=== PATIENT | female | born 1965 | race Caucasian/White ===

== ENCOUNTER → 2017-09-09 12:15 | Outpatient (CLI) | payer MEDICARE, MEDICAID, SELFPAY ==
--- NOTE | 2017-09-09 12:15 | DT_ITS ---
This patient was seen during an EMR downtime September 08, 2017 - September 15, 2017. This patient may have a combination of paper and electronic documentation or all paper documentation. All documentation is viewable within the e-chart portion of [employer] for each patient visit.
[2017-09-15 16:57] LABS: Creatinine, Serum 0.96 mg/dL (0.55-1.02); EST Glomerular Filtration Rate 65 mL/min (>60); Est Glom Filt Rate - Afr Amer 79 mL/min (>60); Thyroid Stim Hormone (TSH) 1.38 uIU/mL (0.358-3.74)
== END ==
PROVIDERS: Family Provider Family Medicine; PCP Family Medicine; Visit Provider Psychiatry & Neurology Psychiatry
DX: Z79.899 Other long term (current) drug therapy (principal)
CPT/HCPCS: 36415; 80178; 82565; 84443

== ENCOUNTER → 2018-02-23 16:34 | Outpatient (CLI) | payer MEDICARE, SELFPAY ==
[2018-02-23 18:25] LABS: Thyroid Stim Hormone (TSH) 2.27 uIU/mL (0.358-3.74)
== END ==
PROVIDERS: Family Provider Family Medicine; PCP Family Medicine; Referring Provider Psychiatry & Neurology Psychiatry; Visit Provider Psychiatry & Neurology Psychiatry
DX: Z79.899 Other long term (current) drug therapy (principal)
CPT/HCPCS: 36415; 80178; 82570; 84443

== ENCOUNTER → 2018-08-01 | Outpatient (CLI) | payer OTHER, SELFPAY ==
[2016-06-23 00:25] VITALS: BMI 40.2
[2018-08-01 11:46] LABS: Creatinine, Serum 0.84 mg/dL (0.55-1.02); EST Glomerular Filtration Rate 75 mL/min (>60); Est Glom Filt Rate - Afr Amer 91 mL/min (>60); Thyroid Stim Hormone (TSH) 1.25 uIU/mL (0.358-3.74)
== END | disposition home or self-care (01) ==
PROVIDERS: Family Provider Family Medicine; PCP Family Medicine; Referring Provider Psychiatry & Neurology Psychiatry; Visit Provider Psychiatry & Neurology Psychiatry
DX: Z79.899 Other long term (current) drug therapy (principal)
CPT/HCPCS: 80178; 82565; 84443

== ENCOUNTER → 2019-02-11 14:49 | Outpatient (CLI) | payer OTHER, SELFPAY ==
[2019-02-11 16:07] LABS: Creatinine, Serum 0.95 mg/dL (0.55-1.02); EST Glomerular Filtration Rate 65 mL/min (>60); Est Glom Filt Rate - Afr Amer 79 mL/min (>60); Thyroid Stim Hormone (TSH) 1.47 uIU/mL (0.358-3.74)
== END ==
PROVIDERS: Family Provider Family Medicine; PCP Family Medicine; Referring Provider Psychiatry & Neurology Psychiatry; Visit Provider Psychiatry & Neurology Psychiatry
DX: Z79.899 Other long term (current) drug therapy (principal)
CPT/HCPCS: 36415; 80178; 82565; 84443

== ENCOUNTER → 2019-08-04 15:09 | Outpatient (CLI) | payer OTHER, SELFPAY ==
[2019-08-04 16:45] LABS: Creatinine, Serum 0.93 mg/dL (0.55-1.02); EST Glomerular Filtration Rate 66 mL/min (>60); Est Glom Filt Rate - Afr Amer 80 mL/min (>60); Thyroid Stim Hormone (TSH) 1.85 uIU/mL (0.358-3.74)
== END ==
PROVIDERS: PCP Family Medicine; Referring Provider Psychiatry & Neurology Psychiatry; Visit Provider Psychiatry & Neurology Psychiatry
DX: Z79.899 Other long term (current) drug therapy (principal)
CPT/HCPCS: 36415; 80178; 82565; 84443

== ENCOUNTER → 2020-03-20 14:45 | Outpatient (CLI) | payer OTHER, SELFPAY ==
[2016-06-23 00:25] VITALS: BMI 40.2
[2020-03-20 16:19] LABS: Creatinine, Serum 0.85 mg/dL (0.55-1.02); EST Glomerular Filtration Rate 74 mL/min (>60); Est Glom Filt Rate - Afr Amer 89 mL/min (>60); Thyroid Stim Hormone (TSH) 1.69 uIU/mL (0.358-3.74)
== END ==
PROVIDERS: PCP Family Medicine; Referring Provider Psychiatry & Neurology Psychiatry; Visit Provider Psychiatry & Neurology Psychiatry
DX: Z79.899 Other long term (current) drug therapy (principal)
CPT/HCPCS: 36415; 80178; 82565; 84443

== ENCOUNTER 2020-09-06 19:57 | Emergency (ER) | payer MEDICARE, MEDICAID, SELFPAY ==
[2020-09-06 19:57] VITALS: BP 153/83; PULSE 73; RESP 18; TEMP 36.8; O2SAT 100; BMI 43.7
--- NOTE | 2020-09-06 20:40 | RAD_ITS ---
HISTORY: Injury/Pain COMPARISON: CT scan of the abdomen and pelvis from December 12, 2015 with sagittal and coronal 2-D reformats. FINDINGS: # of images incl. paperwork: 3 XR Spine Lumbar 2 or 3 Views: Lumbar vertebral bodies are normal in height. Lumbar disc spaces are well maintained. No acute lumbar spine fracture or subluxation. Degenerative facet disease within the lower lumbar spine is similar. Minimal degenerative disc disease is present, perhaps greatest at the L1-L2 level and some at the L2-L3 level. Small anterior enthesophytes at the L2-L3 level were similar on the previous study. RAD/Lumbar Spine 2 or 3 Views IMPRESSION: No acute lumbar spine fracture or subluxation. Lower lumbar spine facet arthropathy. at 2144 Reported and signed by: Garrison Garcia MD Electronically Signed: Garrison Garcia MD at 21:43 EDT Tel , Service support ,
[2020-09-06] MEDS: oxyCODONE 5 MG Tablet PO (20:57)
[2020-09-06 23:03] VITALS: BP 130/68; PULSE 70; RESP 18; O2SAT 97
--- NOTE | 2020-09-07 00:12 | EDS_ITS ---
HPI History of Present Illness Chief Complaint: Back Informant: patient Onset/Context/Timing Onset: Today Context: Gradual Onset Timing: Continuous Quality: Sharp Location: Lumbar Worsened by: improves with Nothing Relieved by: Nothing Associated Symptoms Associated Symptoms: Radiation to Left Leg; Negative for Numbness, Tingling, Radiation to Right Leg, Fever, Abdominal Pain, Dysuria, Unable to Ambulate, Unable to Transfer, Urinary Retention, Urinary Incontinence, Constipation and Fecal Incontinence Narrative Narrative: Patient presents with back pain that has been getting progressively worse over the past 4 days. Patient states that the pain constant. Patient states pain is over the left lower lumbar area. Patient states the pain radiates down her left leg. Patient denies any bowel or bladder changes. Patient denies any saddle anesthesia. Patient denies any paresthesias or weakness. Patient states that earlier this week she was startled and moved rather quickly. Patient states her pain in her back started after that. Patient denies any other trauma or injury. [facility] Medical History Bipolar disorder Depression Hypertension Home Medications lisinopril 40 mg PO DAILY 06/14/13 [History Last Taken 12/11/14 40 MG] lithium carbonate 300 mg PO TID 06/18/14 [History Last Taken 12/11/14 300 MG] clonazepam 0.5 mg PO TID 08/19/14 [History Last Taken 12/11/14 1 MG] hydrocodone-acetaminophen 1 tab PO Q6H PRN PRN 3 Days #10 tablet 09/06/20 [Rx Last Taken Unknown] hydroxyzine HCl 50 mg PO 4X/DAY 09/06/20 [History Last Taken Unknown] mirtazapine [Remeron] 15 mg PO QHS 09/06/20 [History Last Taken Unknown] Allergy/AdvReac Type Severity Reaction Status Date / Time cyclobenzaprine HCl Allergy Other Verified 06/23/16 00:24 [From Flexeril] ketorolac tromethamine AdvReac Other Verified 06/23/16 00:24 [From Toradol] morphine AdvReac Other Verified 06/23/16 00:24 orphenadrine citrate AdvReac Other Verified 06/23/16 00:24 [From Norflex] prochlorperazine edisylate AdvReac Upset Verified 06/23/16 00:24 [From Compazine] Stomach prochlorperazine maleate AdvReac Upset Verified 06/23/16 00:24 [From Compazine] Stomach promethazine HCl AdvReac Upset Verified 06/23/16 00:24 [From Phenergan] Stomach tramadol AdvReac Other Verified 06/23/16 00:24 Surgical History S/P ACL surgery Social History Smoking Status: Never smoker ROS ROS ED Constitutional Constitutional ED: Denies chills or fever(s) Eyes Eyes: Denies blurry vision or change in vision ENT ENT ED: Denies rhinorrhea or sore throat Cardiovascular Cardiovascular: Denies chest pain or palpitations Respiratory/Chest Respiratory/Chest: Denies cough or dyspnea Gastrointestinal Gastrointestinal: Reports nausea; Denies vomiting Genitourinary Genitourinary ED: Denies dysuria or hematuria Musculoskeletal Musculoskeletal: Reports back pain; Denies neck pain Integumentary Denies abscess or rash Neurologic Neurologic: Denies headache(s) or weakness Allergic/Immunologic Allergic/Immunologic ED: Denies mouth swelling or urticaria EXAM Physical Exam Const Vital Signs: 09/06/20 19:57 09/06/20 23:03 Temperature 98.2 F Temperature Source Temporal Pulse Rate 73 70 Respiratory Rate 18 18 Blood Pressure 153/83 H 130/68 H Blood Pressure Mean 106 88 Pulse Ox 100 97 Oxygen Delivery Method Room Air Room Air Positive well nourished, well developed and obese General Appearance ED: well developed Nutritional Appearance: obese Neck supple and no JVD Back/Spine Back/Spine Narrative: There is tenderness over the left lumbar paraspinal muscles. There is some mild midline tenderness. There is no bony crepitance or step-off. There is no CVA tenderness. Range of motion was limited all motions of the lumbar spine secondary to pain. General Back: Negative for CVA tenderness Lumbar Spine / Lower Back: ROM limited Neuro oriented x3 and no sensory deficits noted Sensorium / Orientation: alert Motor Exam: strength 5/5 throughout Psych mental status grossly normal MDM MDM MDM Narrative Medical decision making narrative: Patient was given a dose of oxycodone here. X-rays of the lumbar spine were obtained. There are 3 views. On my interpretation, there is no acute fracture, spondylolisthesis or spondylolysis. There are some mild degenerative changes. Radiologist also interpreted the x- rays and agrees. Patient is feeling better on reevaluation. Patient was given a prescription for a short course of [place]. Patient was instructed use ice to the area. Patient was instructed to follow-up with her primary care physician in 5 to 7 days. Patient understood and was agreeable with the plan. All questions were answered. Radiography X-Ray: LS SPine, Read by ED Physician, Read by Radiologist, No Fracture, Normal Bony Alignment and DJD Diagnostic Testing: Radiology Impression Lumbar Spine X-Ray 09/06/20 20:40 IMPRESSION: No acute lumbar spine fracture or subluxation. Lower lumbar spine facet arthropathy. at 2144 Reported and signed by: Garrison Garcia MD Electronically Signed: Garrison Garcia MD at 21:43 EDT Tel , Service support , Discharge Plan Triage Chief Complaint: Back ED Provider: Gabriel Hummel Dx/Rx/DC Orders Clinical Impression: Acute myofascial strain of lumbosacral region Instructions: ED Back Sprain/Strain Prescriptions: New hydrocodone-acetaminophen [hydrocodone-acetaminophen] 1 TABLET tablet 1 tab PO Q6H PRN PRN (Reason: Pain) 3 Days Qty: 10 RF: 0 No Action lisinopril 40 MG tablet 40 mg PO DAILY RF: 0 lithium carbonate 300 MG tablet 300 mg PO TID RF: 0 clonazepam 1 MG tablet 0.5 mg PO TID RF: 0 hydroxyzine HCl 50 mg Tablet 50 mg PO 4X/DAY RF: 0 mirtazapine [Remeron] 15 mg Tablet 15 mg PO QHS RF: 0 Primary Care Provider: Claude Ruiz III Referrals: Claude Ruiz III, MD [Primary Care Provider] - 3-5 Days Disposition Disposition: Home, self care Discharge Date/Time: 09/06/20 23:10
== END 2020-09-06 23:10 | disposition home or self-care (01) ==
PROVIDERS: Emergency Provider Emergency Medicine; PCP Family Medicine
DX: S39.012A Strain of muscle, fascia and tendon of lower back, initial encounter (principal); X58.XXXA Exposure to other specified factors, initial encounter; Y93.9 Activity, unspecified; Y92.9 Unspecified place or not applicable; I10 Essential (primary) hypertension; F31.9 Bipolar disorder, unspecified; Z79.899 Other long term (current) drug therapy
CPT/HCPCS: 72100; 99283

== ENCOUNTER 2020-09-18 07:45 | Emergency (ER) | payer MEDICARE, MEDICAID, SELFPAY ==
[2020-09-18 07:47] VITALS: BP 139/67; PULSE 87; RESP 34; TEMP 37.9; O2SAT 94; BMI 43.7
--- NOTE | 2020-09-18 08:17 | ED.VIS.GI ---
HPI HPI - GI History of Present Illness Chief Complaint: Nausea/Vomiting Informant: patient Nausea/Vomiting/Emesis GI Symptom: Positive for Nausea and Vomiting Onset: Days (2) Quality: Positive for Nonbilious Diarrhea/Melena/Hematochezia GI Symptom: Negative for Diarrhea, Melena and Hematochezia Associated Symptoms Associated Symptoms: Negative for Dysuria and Hematuria Narrative Narrative: Patient presents with nausea and vomiting for the past 2 days. Patient states her emesis has a slight pink tinge to it. Patient denies any destini hematemesis or coffee-ground emesis. Patient denies any diarrhea, melena, or hematochezia. Patient denies abdominal pain. Patient states she was recently diagnosed with COVID-19. Patient admits to general myalgias. Patient denies any dysuria or hematuria. Patient states she has been having fevers up to 101.5 at home. Patient also admits to rhinorrhea and sore throat. [facility] Medical History Bipolar disorder Depression Hypertension Home Medications lisinopril 40 mg PO DAILY 06/14/13 [History Last Taken 12/11/14 40 MG] lithium carbonate 300 mg PO TID 06/18/14 [History Last Taken 12/11/14 300 MG] clonazepam 0.5 mg PO TID 08/19/14 [History Last Taken 12/11/14 1 MG] hydrocodone-acetaminophen 1 tab PO Q6H PRN PRN 3 Days #10 tablet 09/06/20 [Rx Last Taken Unknown] hydroxyzine HCl 50 mg PO 4X/DAY 09/06/20 [History Last Taken Unknown] mirtazapine [Remeron] 15 mg PO QHS 09/06/20 [History Last Taken Unknown] ondansetron 4 mg PO Q8H PRN PRN #10 tab 09/18/20 [Rx Last Taken Unknown] Allergy/AdvReac Type Severity Reaction Status Date / Time cyclobenzaprine HCl Allergy Other Verified 09/18/20 07:47 [From Flexeril] ketorolac tromethamine AdvReac Other Verified 09/18/20 07:47 [From Toradol] morphine AdvReac Other Verified 09/18/20 07:47 orphenadrine citrate AdvReac Other Verified 09/18/20 07:47 [From Norflex] prochlorperazine edisylate AdvReac Upset Verified 09/18/20 07:47 [From Compazine] Stomach prochlorperazine maleate AdvReac Upset Verified 09/18/20 07:47 [From Compazine] Stomach promethazine HCl AdvReac Upset Verified 09/18/20 07:47 [From Phenergan] Stomach tramadol AdvReac Other Verified 09/18/20 07:47 Surgical History S/P ACL surgery Social History Smoking Status: Never smoker ROS ROS ED Constitutional Constitutional ED: Reports chills and fever(s) Eyes Eyes: Denies blurry vision or change in vision ENT ENT ED: Reports rhinorrhea and sore throat Cardiovascular Cardiovascular: Denies chest pain or palpitations Respiratory/Chest Respiratory/Chest: Denies cough or dyspnea Gastrointestinal Gastrointestinal: Reports nausea and vomiting; Denies abdominal pain, diarrhea or melena Genitourinary Genitourinary ED: Denies dysuria or hematuria Musculoskeletal Musculoskeletal: Reports myalgias; Denies back pain or neck pain Integumentary Denies abscess or rash Neurologic Neurologic: Denies headache(s) or weakness Allergic/Immunologic Allergic/Immunologic ED: Denies mouth swelling or urticaria EXAM Physical Exam Const Vital Signs: 09/18/20 07:47 Temperature 100.2 F H Temperature Source Oral Pulse Rate 87 Respiratory Rate 34 H Blood Pressure 139/67 H Blood Pressure Mean 91 Pulse Ox 94 Oxygen Delivery Method Room Air Positive well nourished, well developed and obese General Appearance ED: well developed Nutritional Appearance: obese HEENT Reports moist mucous membranes Neck supple and no JVD Resp normal respiratory effort and clear to auscultation bilaterally Cardio regular rate, regular rhythm and no murmurs GI normal to inspection, nondistended, normoactive bowel sounds, non-tender and non-distended Auscultation: normoactive bowel sounds Palpation: soft Extremity normal to inspection General Extremety ED: Negative for edema or tenderness General Extremity: Negative for edema Neuro oriented x3, CN's II-XII intact bilaterally and no sensory deficits noted Sensorium / Orientation: alert Motor Exam: strength 5/5 throughout Psych mental status grossly normal Skin no rashes or lesions noted MDM MDM MDM Narrative Medical decision making narrative: Patient was given Zofran and Tylenol. Patient was given some IV fluids. CBC and comprehensive metabolic profile were obtained. Creatinine was only slightly elevated at 1.10. The remaining labs were within normal limits. Portable 1 view chest x-ray was obtained. On my interpretation, lung hess are clear. There is normal cardiac silhouette. Bony thorax is normal. There is no acute process noted. Radiologist also interpreted the x-ray and agrees. Patient was advised that her symptoms are consistent with COVID-19. Patient was instructed to continue using Tylenol and ibuprofen at home. Patient was given a prescription for Zofran. Patient was instructed to follow-up with her primary care physician in 3 to 5 days. Patient understood and was agreeable with the plan. All questions were answered. Lab Data Attestation: I reviewed the patient's lab results. Labs: Laboratory Results - last 24 hr 09/18/20 09/18/20 08:48 08:48 WBC 4.4 RBC 5.16 Hgb 14.8 Hct 46.2 MCV 89.5 MCH 28.7 MCHC 32.0 RDW Std Deviation 42.3 RDW Coeff of David 12.8 Plt Count 212 MPV 9.8 Immature Gran % (Auto) 0.200 Neut % (Auto) 65.4 Lymph % (Auto) 22.5 [place] % (Auto) 11.5 H Eos % (Auto) 0.2 Baso % (Auto) 0.2 Absolute Neuts (auto) 2.9 Absolute Lymphs (auto) 0.98 Nucleated RBC % 0 Sodium 138 Potassium 4.3 Chloride 107 Carbon Dioxide 22.0 Anion Gap 9 BUN 18 Creatinine 1.10 H Estim Creat Clear Calc 45.70 Est GFR (MDRD) Af Amer 66 Est GFR (MDRD) Non-Af 55 L BUN/Creatinine Ratio 16.4 Glucose 124 H Calcium 9.6 Total Bilirubin 0.30 AST 35 ALT 78 H Alkaline Phosphatase 105 Total Protein 7.9 Albumin 3.9 Globulin 4.0 Albumin/Globulin Ratio 1.0 Radiography Diagnostic Testing: Radiology Impression Chest X-Ray 09/18/20 09:00 IMPRESSION: No acute abnormality is present. Electronically Signed: Ravi Dillon MD at 9:20 EDT , Service support , Discharge Plan Triage Chief Complaint: Nausea/Vomiting ED Provider: Gabriel Hummel Dx/Rx/DC Orders Clinical Impression: COVID-19 Instructions: Coronavirus Disease 2019 (COVID-19): Caring for Yourself or Others Prescriptions: New ondansetron [ondansetron] 4 MG tablet 4 mg PO Q8H PRN PRN (Reason: Nausea) Qty: 10 RF: 0 No Action lisinopril 40 MG tablet 40 mg PO DAILY RF: 0 lithium carbonate 300 MG tablet 300 mg PO TID RF: 0 clonazepam 1 MG tablet 0.5 mg PO TID RF: 0 hydroxyzine HCl 50 mg Tablet 50 mg PO 4X/DAY RF: 0 mirtazapine [Remeron] 15 mg Tablet 15 mg PO QHS RF: 0 hydrocodone-acetaminophen [hydrocodone-acetaminophen] 1 TABLET tablet 1 tab PO Q6H PRN PRN (Reason: Pain) 3 Days Qty: 10 RF: 0 Primary Care Provider: Care Physician,No Primary Referrals: Destini Ruiz III, MD [STAFF PHYSICIAN] - 3-5 Days Care Physician,No Primary [Primary Care Provider] - Disposition Disposition: Home, self care
[2020-09-18] MEDS: Acetaminophen 500 MG Tablet 1000 MG PO (08:46)
[2020-09-18] MEDS: Ondansetron 4 MG/2 ML Vial IV (08:46)
[2020-09-18 08:59] LABS: Absolute Lymphocyte Count 0.98 X10^3/uL (0.83-4.51); Absolute Neutrophil Count 2.9 X10^3/uL (2.0-7.7); Basophil# 0.01 X10^3/uL; Basophil% 0.2 % (0-1); Eosinophil# 0.01 X10^3/uL; Eosinophils% 0.2 % (0-5); Hematocrit 46.2 % (37-47); Hemoglobin 14.8 g/dL (12.0-15.0); Lymphocyte # 0.98 X10^3/ul (0.83-4.51); Lymphocyte % 22.5 % (19-41); Mean Corpuscular Hgb 28.7 pg (27.0-32.0); Mean Corpuscular Volume 89.5 fL (81-99); Mean Platelet Vol. 9.8 fl (6.2-12.0); Monocyte% 11.5 % (0-10); NRBC Flagged by Analyzer 0 % (0-5); Neutrophil # 2.85 X10^3/uL (2.7-7.7); Neutrophil % 65.4 % (47-70); Platelet Count 212 K/mm3 (150-450); RBC Distribution Width CV 12.8 % (11.6-14.6); RBC Distribution Width SD 42.3 fl (35.1-43.9); Red Blood Count 5.16 M/mm3 (4.2-5.4); White Blood Count 4.4 K/mm3 (4.4-11.0)
--- NOTE | 2020-09-18 09:00 | RAD_ITS ---
STUDY: X-RAY CHEST REASON FOR EXAM: Female, 55 years old. Cough TECHNIQUE: Single AP portable view of the chest. COMPARISON: Comparison is made with prior study dated 05/12/2016. FINDINGS: EKG electrodes are seen. The lungs are clear and expanded. There is no demonstrated pleural abnormality. Normal size heart. Normal mediastinum and carol. Normal visualized pulmonary arteries. Normal visualized aortic arch and descending thoracic aorta. There are diffuse degenerative changes of the visualized thoracic spine. Normal visualized ribs, clavicles, and shoulders. There is no demonstrated abnormality of the visualized soft tissue structures of the upper abdomen. RAD/Chest 1 View (Portable) IMPRESSION: No acute abnormality is present. Electronically Signed: Ravi Dillon MD at 9:20 EDT , Service support ,
[2020-09-18 09:16] LABS: AST(SGOT) 35 U/L (15-37); Alanine Aminotransfer ALT/SGPT 78 U/L (13-56); Albumin, Serum 3.9 g/dL (3.2-5.0); Alkaline Phosphatase 105 U/L (45-117); Anion Gap 9 (5-15); BUN 18 mg/dL (7-18); BUN/Creat Ratio 16.4 RATIO (10-20); Calcium,Total 9.6 mg/dL (8.5-10.1); Chloride 107 mmol/L (98-107); EST Glomerular Filtration Rate 55 mL/min (>60); Est Glom Filt Rate - Afr Amer 66 mL/min (>60); Glucose 124 mg/dL (74-106); Potassium 4.3 mmol/L (3.5-5.1); Protein, Total 7.9 g/dL (6.4-8.2); Sodium Level 138 mmol/L (136-145)
[2020-09-18 10:22] VITALS: BP 120/79; PULSE 76; RESP 16; RESP 26; O2SAT 93
== END 2020-09-18 10:30 | disposition home or self-care (01) ==
PROVIDERS: Emergency Provider Emergency Medicine
DX: U07.1 COVID-19 (principal); E66.9 Obesity, unspecified
CPT/HCPCS: 71045; 80053; 85025; 96374; 99285; J7040; A4216; J2405

== ENCOUNTER 2020-09-21 11:04 | Inpatient (IN) | payer MEDICARE, MEDICAID, SELFPAY ==
[2020-09-21] VITALS (7 sets, daily range): BP systolic 133–157; BP diastolic 67–92; PULSE 64–77; RESP 16–28; TEMP 36.8–37.6; O2SAT 94–98; BMI 40.2; BMI 42.0
--- NOTE | 2020-09-21 11:15 | EKG12_ITS ---
Test Reason : WEAKNESS Blood Pressure : / mmHG Vent. Rate : 074 BPM Atrial Rate : 074 BPM P-R Int : 136 ms QRS Dur : 080 ms QT Int : 396 ms P-R-T Axes : 036 054 050 degrees QTc Int : 439 ms Normal sinus rhythm Normal ECG Confirmed by VITA OLVERA, MI ([id number]), publications editor SAÚL GUERRERO ([id number]) on 09/25/2020 11:06:08 A M Referred By: NATHAN Confirmed By:GLO GORMAN MD
--- NOTE | 2020-09-21 11:17 | CT_ITS ---
STUDY: CT BRAIN WITHOUT CONTRAST REASON FOR EXAM: Female, 55 years old. Altered mental status RADIATION DOSAGE (If Supplied By Facility): CTDIvol = ( 44.99 ) mGy, DLP = ( 779.24 ) mGycm TECHNIQUE: Transaxial CT imaging of the brain was performed without administration of intravenous contrast material. Individualized dose optimization techniques were used for this CT. COMPARISON: Comparison is made with prior examination dated 06/23/2016. FINDINGS: Normal soft tissue structures. Normal calvarium. Normal size ventricles and extra-axial spaces for the patient''s age. Normal white matter tracts of the cerebral hemispheres. Normal basal ganglia and thalami. Normal brainstem. Normal cerebellum. There is no intracranial hemorrhage. There are no findings of an acute ischemic infarction. Mucosal thickening of the maxillary sinus bilaterally slightly worse on the right side. Partial opacification of the ethmoid sinuses. CT/Brain/Head without Contrast IMPRESSION: Normal unenhanced CT scan of the brain. Partial opacification of the ethmoid sinuses as well as mucosal thickening of the maxillary sinuses bilaterally. Electronically Signed: Ravi Dillon MD at 12:22 EDT , Service support ,
--- NOTE | 2020-09-21 11:18 | EDS_ITS ---
HPI History of Present Illness Chief Complaint: Weakness Informant: patient, family and EMS Onset/Context/Timing Onset: Weeks (1) Context: Gradual Onset Timing: Continuous Narrative Narrative: 55-year-old female was diagnosed with Covid 7 days ago, symptomatic for about 8 days starting on 09/14/2020 presenting with weakness, lots of vomiting and diarrhea, and disorientation for the last several days which waxes and wanes. Daughter states she has had no issues speaking necessarily it has been more confusion. Patient denies any lateralizing neurologic symptoms. She denies any cough, shortness of breath, chest pain, abdominal pain other than soreness from vomiting. Daughter states that she went over there today, and realized that she is upstairs in her bedroom ever since she got tested 1 week ago, and has basically not come downstairs at all which is where her water source and Gatorade is located in addition to her medications which she has not been taking. Those include lithium. [facility] Medical History Bipolar disorder Depression Hypertension Home Medications lisinopril 40 mg PO DAILY 06/14/13 [History Last Taken 12/11/14 40 MG] lithium carbonate 300 mg PO TID 06/18/14 [History Last Taken 12/11/14 300 MG] clonazepam 0.5 mg PO TID 08/19/14 [History Last Taken 12/11/14 1 MG] hydrocodone-acetaminophen 1 tab PO Q6H PRN PRN 3 Days #10 tablet 09/06/20 [Rx Last Taken Unknown] hydroxyzine HCl 50 mg PO 4X/DAY 09/06/20 [History Last Taken Unknown] mirtazapine [Remeron] 15 mg PO QHS 09/06/20 [History Last Taken Unknown] ondansetron 4 mg PO Q8H PRN PRN #10 tab 09/18/20 [Rx Last Taken Unknown] Allergy/AdvReac Type Severity Reaction Status Date / Time cyclobenzaprine HCl Allergy Other Verified 09/21/20 11:08 [From Flexeril] ketorolac tromethamine AdvReac Other Verified 09/21/20 11:08 [From Toradol] morphine AdvReac Other Verified 09/21/20 11:08 orphenadrine citrate AdvReac Other Verified 09/21/20 11:08 [From Norflex] prochlorperazine edisylate AdvReac Upset Verified 09/21/20 11:08 [From Compazine] Stomach prochlorperazine maleate AdvReac Upset Verified 09/21/20 11:08 [From Compazine] Stomach promethazine HCl AdvReac Upset Verified 09/21/20 11:08 [From Phenergan] Stomach tramadol AdvReac Other Verified 09/21/20 11:08 Surgical History S/P ACL surgery Social History Smoking Status: Never smoker ROS ROS ED Constitutional Constitutional ED: Reports as per HPI, anorexia, chills, fatigue and fever(s) Eyes Eyes: Denies change in vision or diplopia ENT ENT ED: Denies rhinorrhea or sore throat Cardiovascular Cardiovascular: Denies chest pain or palpitations Respiratory/Chest Respiratory/Chest: Denies cough or dyspnea Gastrointestinal Gastrointestinal: Reports diarrhea, nausea and vomiting; Denies abdominal pain Genitourinary Genitourinary ED: Denies dysuria or hematuria Musculoskeletal Musculoskeletal: Denies back pain or neck pain Integumentary Denies abscess or rash Neurologic Neurologic: Reports confusion; Denies headache(s), paresthesias or weakness Psychiatric Psychiatric: Denies anxiety or suicidal thoughts EXAM Physical Exam Const Vital Signs: 09/21/20 11:05 09/21/20 11:10 Temperature 99.7 F H 99.7 F H Temperature Source Oral Oral Pulse Rate 77 77 Respiratory Rate 22 H 22 H Respiratory Effort Normal Non-Labored Blood Pressure 154/90 H 154/90 H Blood Pressure Mean 111 111 Pulse Ox 94 94 Oxygen Delivery Method Room Air Room Air Positive well nourished and well developed General Appearance ED: well developed and NAD HEENT Reports dry mucous membranes normocephalic and atraumatic Face and Sinus: sinuses nontender Mouth ED: Yes dry mucous membranes Mouth: dry mucous membranes Eyes PERRL and EOMs intact bilaterally Neck full ROM, no lymphadenopathy and supple Chest Wall palpation of chest normal Resp normal respiratory effort and clear to auscultation bilaterally Cardio regular rate, regular rhythm and no murmurs Rate: Negative for tachycardic GI non-tender and non-distended Auscultation: normoactive bowel sounds Palpation: soft Back/Spine no CVA tenderness General Back: other FROM Extremity normal to inspection General Extremety ED: Negative for edema, pulses abnormal or tenderness General Extremity: Negative for edema or pulses abnormal Neuro CN's II-XII intact bilaterally and no sensory deficits noted Neuro Narrative: Disoriented to time Sensorium / Orientation: awake, alert and orientation impaired Motor Exam: strength 5/5 throughout Psych thought process normal, cooperative and activity/motor behavior normal Appearance: grossly normal Mood & Affect: flat affect Skin no rashes or lesions noted and no wounds MDM MDM MDM Narrative Medical decision making narrative: Given stable vital signs and the possibility of acute renal failure/injury and hyponatremia, her fluids were run gently at 150 cc/h. Electrolytes are within normal limits, there is evidence of acute kidney injury, however this is similar to labs that were obtained a couple days ago and the patient was apparently here for back related issues. Her chest x- ray shows no infiltrates or Covid pattern. CT of the head shows nothing acute. She is not examining like an ischemic stroke here. My guess is that she is malaised and dehydrated as a result of COVID-19. Family is concerned about her ability to care for herself right now, I do think admission to the hospital for further PT OT evaluation is warranted given all of this. Pulse oximetry 94% on room air, she is too weak to walk so we did not exert her. No cough or shortness of breath. Lab Data Attestation: I reviewed the patient's lab results. Labs: Laboratory Results - last 24 hr 09/21/20 09/21/20 09/21/20 11:12 11:12 11:12 WBC 5.9 RBC 5.36 Hgb 15.5 H Hct 46.6 MCV 86.9 MCH 28.9 MCHC 33.3 RDW Std Deviation 40.8 RDW Coeff of David 12.9 Plt Count 209 MPV 10.2 Immature Gran % (Auto) 0.300 Neut % (Auto) 68.8 Lymph % (Auto) 23.4 [place] % (Auto) 7.3 Eos % (Auto) 0.0 Baso % (Auto) 0.2 Absolute Neuts (auto) 4.0 Absolute Lymphs (auto) 1.37 Nucleated RBC % 0 Sodium 138 Potassium 4.2 Chloride 108 H Carbon Dioxide 22.0 Anion Gap 8 BUN 18 Creatinine 1.06 H Estim Creat Clear Calc 51.78 Est GFR (MDRD) Af Amer 69 Est GFR (MDRD) Non-Af 57 L BUN/Creatinine Ratio 17.0 Glucose 153 H Lactic Acid 1.7 Calcium 9.4 Total Bilirubin 0.30 AST 29 ALT 45 Alkaline Phosphatase 99 Troponin I < 0.015 Total Protein 8.1 Albumin 3.4 Globulin 4.7 H Albumin/Globulin Ratio 0.7 L Carter 09/21/20 11:12 WBC RBC Hgb Hct MCV MCH MCHC RDW Std Deviation RDW Coeff of David Plt Count MPV Immature Gran % (Auto) Neut % (Auto) Lymph % (Auto) [place] % (Auto) Eos % (Auto) Baso % (Auto) Absolute Neuts (auto) Absolute Lymphs (auto) Nucleated RBC % Sodium Potassium Chloride Carbon Dioxide Anion Gap BUN Creatinine Estim Creat Clear Calc Est GFR (MDRD) Af Amer Est GFR (MDRD) Non-Af BUN/Creatinine Ratio Glucose Lactic Acid Calcium Total Bilirubin AST ALT Alkaline Phosphatase Troponin I Total Protein Albumin Globulin Albumin/Globulin Ratio Carter 0.50 L Radiography Diagnostic Testing: Radiology Impression Brain CT 09/21/20 11:17 IMPRESSION: Normal unenhanced CT scan of the brain. Partial opacification of the ethmoid sinuses as well as mucosal thickening of the maxillary sinuses bilaterally. Electronically Signed: Ravi Dillon MD at 12:22 EDT , Service support , Chest X-Ray 09/21/20 11:34 IMPRESSION: Normal x-ray examination of the chest. Electronically Signed: Ravi Dillon MD at 12:17 EDT , Service support , EKG Initial EKG: Attestation: I personally reviewed and interpreted this EKG as follows: Interpretation: Sinus Rhythm and No Acute Injury Pattern Comments: NSR at 74 Discharge Plan Dx/Rx/DC Orders Clinical Impression: Delirium due to another medical condition, COVID-19, Dehydration, mild Disposition Disposition: Acute Care [facility]
[2020-09-21 11:27] LABS: Absolute Lymphocyte Count 1.37 X10^3/uL (0.83-4.51); Basophil# 0.01 X10^3/uL; Basophil% 0.2 % (0-1); Hematocrit 46.6 % (37-47); Hemoglobin 15.5 g/dL (12.0-15.0); Lymphocyte # 1.37 X10^3/ul (0.83-4.51); Lymphocyte % 23.4 % (19-41); Mean Corp Hgb Conc 33.3 g/dL (32-36); Mean Corpuscular Hgb 28.9 pg (27.0-32.0); Mean Corpuscular Volume 86.9 fL (81-99); Mean Platelet Vol. 10.2 fl (6.2-12.0); Monocyte# 0.43 X10^3/uL; Monocyte% 7.3 % (0-10); NRBC Flagged by Analyzer 0 % (0-5); Neutrophil # 4.03 X10^3/uL (2.7-7.7); Neutrophil % 68.8 % (47-70); Platelet Count 209 K/mm3 (150-450); RBC Distribution Width CV 12.9 % (11.6-14.6); RBC Distribution Width SD 40.8 fl (35.1-43.9); Red Blood Count 5.36 M/mm3 (4.2-5.4); White Blood Count 5.9 K/mm3 (4.4-11.0)
[2020-09-21] MEDS: Ondansetron 4 MG/2 ML Vial IV ×2 (11:32→15:52)
[2020-09-21] MEDS: 0.9% Normal Saline 1,000 ML 150 ML IV (11:33)
--- NOTE | 2020-09-21 11:34 | RAD_ITS ---
STUDY: X-RAY CHEST REASON FOR EXAM: Female, 55 years old. Cough TECHNIQUE: Single AP portable view of the chest. COMPARISON: Comparison is made with prior study 09/18/2020. FINDINGS: EKG lines are seen. The lungs are clear and expanded. There is no demonstrated pleural abnormality. Normal size heart. Normal mediastinum and carol. Normal visualized pulmonary arteries. Normal visualized aortic arch and descending thoracic aorta. There are diffuse degenerative changes of the visualized thoracic spine. Normal visualized ribs, clavicles, and shoulders. There is no demonstrated abnormality of the visualized soft tissue structures of the upper abdomen. RAD/Chest 1 View (Portable) IMPRESSION: Normal x-ray examination of the chest. Electronically Signed: Ravi Dillon MD at 12:17 EDT , Service support ,
[2020-09-21 11:41] LABS: ALB/GLOB Ratio 0.7 RATIO (0.9-2.4); AST(SGOT) 29 U/L (15-37); Alanine Aminotransfer ALT/SGPT 45 U/L (13-56); Albumin, Serum 3.4 g/dL (3.2-5.0); Alkaline Phosphatase 99 U/L (45-117); Anion Gap 8 (5-15); BUN 18 mg/dL (7-18); Calcium,Total 9.4 mg/dL (8.5-10.1); Chloride 108 mmol/L (98-107); Creatinine, Serum 1.06 mg/dL (0.55-1.02); EST Glomerular Filtration Rate 57 mL/min (>60); Est Glom Filt Rate - Afr Amer 69 mL/min (>60); Estimated Creatinine Clearance 51.78 ml/min; Globulin 4.7 g/dL (2.2-4.2); Glucose 153 mg/dL (74-106); Potassium 4.2 mmol/L (3.5-5.1); Protein, Total 8.1 g/dL (6.4-8.2); Sodium Level 138 mmol/L (136-145)
[2020-09-21 11:44] LABS: Lactic Acid 1.7 mmol/L (0.4-1.9)
--- NOTE | 2020-09-21 14:09 | PCM.HP.STD ---
HPI - General General Date of Admission: 09/21/20 HPI Narrative CYNTHIA RAZA, is a 55 F with history of bipolar disorder on lithium, mirtazapine came to ER with 8 days symptoms of COVID-19 predominantly GI symptoms. This is started with generalized weakness with body aches and then progressed to nausea, vomiting and diarrhea for last 4 days. She is going to bathroom every 1 or 2 hours. She also is confused, does not remember the events well as per the daughter. Patient looks dehydrated. Denies respiratory symptoms including cough, sputum production, sore throat. No headache. Labs in ED reviewed. Chest x-ray reported normal. Pulse ox 94% on room air in ED [facility] Medical History Bipolar disorder Depression Hypertension Home Medications lisinopril 40 mg PO DAILY 06/14/13 [History Last Taken 12/11/14 40 MG] lithium carbonate 300 mg PO TID 06/18/14 [History Last Taken 12/11/14 300 MG] clonazepam 0.5 mg PO TID 08/19/14 [History Last Taken 12/11/14 1 MG] hydrocodone-acetaminophen 1 tab PO Q6H PRN PRN 3 Days #10 tablet 09/06/20 [Rx Last Taken Unknown] hydroxyzine HCl 50 mg PO 4X/DAY 09/06/20 [History Last Taken Unknown] mirtazapine [Remeron] 15 mg PO QHS 09/06/20 [History Last Taken Unknown] ondansetron 4 mg PO Q8H PRN PRN #10 tab 09/18/20 [Rx Last Taken Unknown] Allergy/AdvReac Type Severity Reaction Status Date / Time cyclobenzaprine HCl Allergy Other Verified 09/21/20 11:08 [From Flexeril] ketorolac tromethamine AdvReac Other Verified 09/21/20 11:08 [From Toradol] morphine AdvReac Other Verified 09/21/20 11:08 orphenadrine citrate AdvReac Other Verified 09/21/20 11:08 [From Norflex] prochlorperazine edisylate AdvReac Upset Verified 09/21/20 11:08 [From Compazine] Stomach prochlorperazine maleate AdvReac Upset Verified 09/21/20 11:08 [From Compazine] Stomach promethazine HCl AdvReac Upset Verified 09/21/20 11:08 [From Phenergan] Stomach tramadol AdvReac Other Verified 09/21/20 11:08 Surgical History S/P ACL surgery Social History Smoking Status: Never smoker ROS ROS Narrative Constitutional: Reports fatigue and weakness HEENT: Reports systems reviewed and no addt'l complaints, except as documented Respiratory/Chest: Denies shortness of breath with exertion. No chest pain Gastrointestinal: Nausea vomiting and diarrhea. No abdominal pain. No GI bleed. Genitourinary: Denies burning urination. Dark yellow urine, concentrated Musculoskeletal: Mild joint pain and limited range of motion Neurologic: Denies seizure-like activity skin: No ulcer. No rash Endocrinology: Reports systems reviewed and no addt'l complaints, except as documented Hematologic/Lymphatic: Reports systems reviewed and no addt'l complaints, except as documented Rest 12 ROS are negative except as mentioned in HPI Vital Signs Vital Signs Vital Signs: 09/21/20 11:05 09/21/20 11:10 09/21/20 13:26 Temperature 99.7 F H 99.7 F H 98.2 F Temperature Source Oral Oral Oral Pulse Rate 77 77 70 Respiratory Rate 22 H 22 H 28 H Respiratory Effort Normal Non-Labored Blood Pressure 154/90 H 154/90 H 157/92 H Blood Pressure Mean 111 111 113 Pulse Ox 94 94 98 Oxygen Delivery Method Room Air Room Air Room Air Weight Weight: 234 lb 9.149 oz Body Mass Index (BMI) 40.2 Physical Exam Narrative General: Awake, oriented x3, Cooperative. Looks pale and weak HEENT: Atraumatic, PERRLA, EOMI, Normocephalic Oral: Dry oral mucosa. No Gingival or Mucosal Lesions/ Ulcerations Neck: Supple, No JVD, Negative Carotid Bruits Lungs: Air entry diminished in bilateral lung bases. No crepitation/rhonchi Cardiovascular: Regular rate, Regular Rhythm, Normal S1, Normal S2, No murmurs Abdomen: Bowel Sounds Present, Soft, Non Tender, Non-Distended : No renal angle tenderness. No suprapubic tenderness. Extremities: No edema, Capillary Refill Less than 3 Seconds Skin: No rashes, No breakdown Musculoskeletal: No Tenderness to Palpation of Joints or Extremities Neurological: Cranial nerves II-XII grossly intact, Deep Tendon Reflexes 2+/4 and Symmetrical, Neuro grossly intact Psych/Mental Status: Flat affect. Results Lab / Micro Data Result Diagrams: 09/21/20 11:12 09/21/20 11:12 Labs: Laboratory Results - last 24 hr 09/21/20 09/21/20 09/21/20 11:12 11:12 11:12 WBC 5.9 RBC 5.36 Hgb 15.5 H Hct 46.6 MCV 86.9 MCH 28.9 MCHC 33.3 RDW Std Deviation 40.8 RDW Coeff of David 12.9 Plt Count 209 MPV 10.2 Immature Gran % (Auto) 0.300 Neut % (Auto) 68.8 Lymph % (Auto) 23.4 [place] % (Auto) 7.3 Eos % (Auto) 0.0 Baso % (Auto) 0.2 Absolute Neuts (auto) 4.0 Absolute Lymphs (auto) 1.37 Nucleated RBC % 0 Sodium 138 Potassium 4.2 Chloride 108 H Carbon Dioxide 22.0 Anion Gap 8 BUN 18 Creatinine 1.06 H Estim Creat Clear Calc 51.78 Est GFR (MDRD) Af Amer 69 Est GFR (MDRD) Non-Af 57 L BUN/Creatinine Ratio 17.0 Glucose 153 H Lactic Acid 1.7 Calcium 9.4 Total Bilirubin 0.30 AST 29 ALT 45 Alkaline Phosphatase 99 Troponin I < 0.015 Total Protein 8.1 Albumin 3.4 Globulin 4.7 H Albumin/Globulin Ratio 0.7 L Clare 09/21/20 11:12 WBC RBC Hgb Hct MCV MCH MCHC RDW Std Deviation RDW Coeff of David Plt Count MPV Immature Gran % (Auto) Neut % (Auto) Lymph % (Auto) [place] % (Auto) Eos % (Auto) Baso % (Auto) Absolute Neuts (auto) Absolute Lymphs (auto) Nucleated RBC % Sodium Potassium Chloride Carbon Dioxide Anion Gap BUN Creatinine Estim Creat Clear Calc Est GFR (MDRD) Af Amer Est GFR (MDRD) Non-Af BUN/Creatinine Ratio Glucose Lactic Acid Calcium Total Bilirubin AST ALT Alkaline Phosphatase Troponin I Total Protein Albumin Globulin Albumin/Globulin Ratio Clare 0.50 L Radiology Impression Brain CT 09/21/20 11:17 IMPRESSION: Normal unenhanced CT scan of the brain. Partial opacification of the ethmoid sinuses as well as mucosal thickening of the maxillary sinuses bilaterally. Electronically Signed: Ravi Dillon MD at 12:22 EDT , Service support , Chest X-Ray 09/21/20 11:34 IMPRESSION: Normal x-ray examination of the chest. Electronically Signed: Ravi Dillon MD at 12:17 EDT , Service support , Assessment & Plan Assessment/Plan (1) COVID-19: (2) Delirium due to another medical condition: (3) Benign essential hypertension: PLAN: This 55-year-old female admitted with 8 days of nausea vomiting and diarrhea generalized weakness and COVID-19 positive. 1. COVID-19 infection predominantly acute gastroenteritis: Patient is being admitted and Covid core floor. Patient is dehydrated. IV fluid resuscitation Ringer lactate 125 mill per hour. Supportive treatment for nausea vomiting. Soft diet and advance as per tolerated. Dexamethasone 6 million IV started. I discussed with Dr. Ybarra and agreed with IV remdesivir as it might decrease duration of her symptoms. Remdesivir is started. Incentive spirometry. Monitor oxygen saturation. Lactic acid normal. 2. Bipolar disorder with anxiety and depression: Clare level is low at 0.5. Continue home medications. 3. Hypertension: Lisinopril 40 mg daily continued. Blood pressure is elevated 157/92. 4. Morbid obesity and DVT prophylaxis: BMI 40.3 kg/m?. Started on Lovenox 40 mg subcu twice daily as COVID-19 protocol. Discontinue if platelet count drops less than 50,000 or hemoglobin less than 8 g% Living will/advanced directive/end of life care: Patient does not have living will or advanced directive. After discussion of benefits/risks procedures involved with full code, DNR CC arrest and DNR CC, the patient and her daughter present in the room opted for full code. Patient does want artificial life support including intubation, tube feed, ventilator and/chest compression, central venous catheter, vasopressor and DC shock if needed Total time spent in [id number] encounter in discussion of advanced directive 16 minutes. Charges/Coding Visit Charges Inpatient E&M: 90465 Init Hosp L3 Procedures Hospitalists Procedures: 21977 Advncd Care Plan 30 Min
[2020-09-21] MEDS: Lisinopril 40 MG Tablet PO (15:50)
[2020-09-21] MEDS: guaiFENesin/D-Methorphan TAB.SR.12H 1 TABLET PO ×2 (15:50→21:26)
[2020-09-21] MEDS: clonazePAM 0.5 MG Tablet PO (15:51)
[2020-09-21] MEDS: Enoxaparin 40 MG/0.4 ML Syringe SC ×2 (15:52→21:26)
[2020-09-21] MEDS: Lactated Ringers 1,000 ML 125 ML IV (15:52)
[2020-09-21] MEDS: dexAMETHasone 10 MG/ML Vial 6 MG IV (15:52)
[2020-09-21 16:39] LABS: CPK Total, Creatine Kinase 65 U/L (26-192); LDH 224 U/L (84-246)
[2020-09-21 16:47] LABS: Procalcitonin 0.07 ng/mL (0.00-0.09)
[2020-09-21 17:16] LABS: Fibrinogen 545 mg/dl (203-444)
[2020-09-21 17:19] LABS: D-Dimer Quantitative (DVT/PE) 0.42 FEU/ug/m (0.27-0.49)
[2020-09-21] MEDS: Mirtazapine 15 MG Tablet PO (21:26)
[2020-09-21] MEDS: Lithium Carbonate 300mg Capsule 300 MG PO (21:26)
[2020-09-21] MEDS: hydrOXYzine PAM 25 MG Capsule PO (23:54)
[2020-09-22] VITALS (12 sets, daily range): BP systolic 109–153; BP diastolic 55–81; PULSE 51–81; RESP 15–26; TEMP 36.1–36.9; O2SAT 94–100
[2020-09-22] MEDS: Lactated Ringers 1,000 ML 125 ML IV (03:33)
[2020-09-22] MEDS: 0.9% Saline Lock 10 ML Syringe IV ×2 (03:33→15:48)
[2020-09-22 04:03] LABS: Basophil% 0.2 % (0-1); Hematocrit 41.1 % (37-47); Hemoglobin 13.5 g/dL (12.0-15.0); Lymphocyte % 24.7 % (19-41); Mean Corp Hgb Conc 32.8 g/dL (32-36); Mean Corpuscular Hgb 29.2 pg (27.0-32.0); Mean Corpuscular Volume 88.8 fL (81-99); Mean Platelet Vol. 10.1 fl (6.2-12.0); Monocyte% 8.5 % (0-10); Neutrophil % 66.2 % (47-70); Platelet Count 203 K/mm3 (150-450); RBC Distribution Width CV 13.2 % (11.6-14.6); RBC Distribution Width SD 42.9 fl (35.1-43.9); Red Blood Count 4.63 M/mm3 (4.2-5.4); White Blood Count 4.7 K/mm3 (4.4-11.0)
[2020-09-22 04:04] LABS: Absolute Lymphocyte Count 1.16 X10^3/uL (0.83-4.51); Absolute Neutrophil Count 3.1 X10^3/uL (2.0-7.7); Basophil# 0.01 X10^3/uL; Lymphocyte # 1.16 X10^3/ul (0.83-4.51); Neutrophil # 3.11 X10^3/uL (2.7-7.7)
[2020-09-22 04:09] LABS: ALB/GLOB Ratio 0.7 RATIO (0.9-2.4); AST(SGOT) 36 U/L (15-37); Alanine Aminotransfer ALT/SGPT 46 U/L (13-56); Albumin, Serum 2.7 g/dL (3.2-5.0); Alkaline Phosphatase 79 U/L (45-117); Anion Gap 7 (5-15); BUN 14 mg/dL (7-18); BUN/Creat Ratio 17.1 RATIO (10-20); Calcium,Total 8.2 mg/dL (8.5-10.1); Chloride 114 mmol/L (98-107); Creatinine, Serum 0.82 mg/dL (0.55-1.02); EST Glomerular Filtration Rate 77 mL/min (>60); Est Glom Filt Rate - Afr Amer 93 mL/min (>60); Estimated Creatinine Clearance 61.31 ml/min; Globulin 3.7 g/dL (2.2-4.2); Glucose 125 mg/dL (74-106); Magnesium 1.9 mg/dL (1.6-2.6); Phosphorus 2.5 mg/dL (2.5-4.9); Potassium 3.8 mmol/L (3.5-5.1); Protein, Total 6.4 g/dL (6.4-8.2); Sodium Level 144 mmol/L (136-145)
[2020-09-22] MEDS: clonazePAM 0.5 MG Tablet PO ×3 (05:33→22:14)
[2020-09-22] MEDS: Lithium Carbonate 300mg Capsule 300 MG PO ×3 (05:33→22:15)
[2020-09-22] MEDS: Lisinopril 40 MG Tablet PO (08:30)
[2020-09-22] MEDS: Enoxaparin 40 MG/0.4 ML Syringe SC ×2 (08:30→22:15)
--- NOTE | 2020-09-22 12:10 | CASEMGMT ---
MATILDE BARBA ASSESSMENT COVID-19 +: Pt had testing done @ [facility] MATILDE BARBA to room to meet with patient for initial transition planning/care coordination assessment. MATILDE BARBA introduced self and role at [facility]. Pt voices understanding and consents to assessment at this time. Pt resting in bed in no distress at this time. Pt is A/O at this time and answers all questions appropriately. Care providers, pharmacy, and demographics verified/updated at this time. PCP: Pt was seeing Dr Mary Ruiz @ [facility] but he has retired. Pt states she was given a list by [facility] of other doctors @ their practice but has not followed up w/switching to a new PCP. Pt states she would like to start seeing Dr Gar if he is taking new pts. MATILDE BARBA placed call to [facility]. Dr Gar is seeing new pt's per marketing secretary. She states they would do a virtual visit w/pt d/t COVID and asked to have pt call their office once she is discharged home so they can assist her w/getting set up w/E-chart for virtual visits. Pt made aware. Specialists: [facility] Walsh-psychiatrist. Zulema Pablo--counselor. Preferred Pharmacy: [facility] Insurance: [facility] [facility] Community Plan/[facility] Prescription Benefit: Yes Living Will/HPOA: States does not have LW or HCPOA . Interested in more information. Provided information on advanced directives and given Social Service rac card with number to call if chooses in the future to utilize [facility] social work for advanced directive completion once she is out of COVID precautions. Patient expresses understanding. LNOK: Has 3 children. Daughter, Amber, is the only one listed on demographics. Pt aware and states does not wish to have the other 2 listed at this time. Living Arrangements: Lives alone in 2-story apt. 2 steps to enter and approx 15 steep steps between the two floors. Full bath and bedroom are on 2nd floor. 1/2 bath on ground floor. States was independent w/ADL'S and IADL'S prior to becoming ill w/COVID. Has love seat and Lazy Boy recliner that she can sleep on if needed on the ground floor. Daughter can assist w/getting groceries/supplies as needed. Transportation: Pt states drives self and states no transportation concerns at this time. Daughter, Amber, will take her home @ discharge. Amber has not been ill w/COVID, but just received her 2nd COVID vaccine a couple days ago. Pt educated on importance of pt/dtr both wearing masks while i DME: Denies using any DME and denies needs. Does not have home O2. Pt currently on RA. Pt provided w/ list of DME providers consistent with the patient's preferred geographic region, medical needs, and insurance network. Made aware [facility] is an affiliate of [facility]. The pt's preferred provider is [facility]. . HHC/SNF: No history of either. Pt denies needs for HHC or OP therapy. Pt made aware, if in the future she is interested in either, to contact her PCP and discuss options w/them. Pt wishes to return home and states has no concerns with going home at time of discharge. CM to follow for home oxygen needs and any further discharge planning/needs. Pt voices no further concerns/needs at this time. Advised pt to ask for CM if any further questions/concerns/needs arise. Voices understanding. PLAN: Home. Green sheet placed on chart w/instructions for setting up Home O2 if pt qualifies for O2 @ discharge. Pricila LOPEZ RN CM
[2020-09-22] MEDS: Benzonatate 100 MG Capsule PO ×3 (12:39→22:15)
--- NOTE | 2020-09-22 13:20 | CON.PCM.ID_ITS ---
Assessment & Plan Assessment/Plan (1) COVID-19: PLAN: covid with hypoxia, sats down to 93% on RA. Sx started 09/15, prim arily n/v/d, mental fog, fatigue. On dex for 10 day course, on remdesivir, ordered monitoring labs. PCT normal. On lovenox 40mg bid. Recommended covid vaccine when she is out of 20 days quarantine from sx onset. Will follow, thank you (2) Hypoxia: HPI Consult Data Date of Consult: 09/22/20 HPI Narrative HPI Narrative: CYNTHIA RAZA, is a 55 F who presented to ED yesterday with 5-6 days of not feeling well, c/o aches, fever, n/v/d, brain fog. Sx started around 09/15. Has not gotten covid vaccine. Lives alone. No sick contacts. No change in taste or smell. Came to ED, admitted on dex and remdesivir, feeling slightly better today. Full ROS performed and neg except as noted above. [facility] Medical History Bipolar disorder Depression Hypertension Home Medications lisinopril 40 mg PO DAILY 06/14/13 [History Last Taken 12/11/14 40 MG] lithium carbonate 300 mg PO TID 06/18/14 [History Last Taken 12/11/14 300 MG] clonazepam 0.5 mg PO TID 08/19/14 [History Last Taken 12/11/14 1 MG] hydrocodone-acetaminophen 1 tab PO Q6H PRN PRN 3 Days #10 tablet 09/06/20 [Rx Last Taken Unknown] hydroxyzine HCl 50 mg PO 4X/DAY 09/06/20 [History Last Taken Unknown] mirtazapine [Remeron] 15 mg PO QHS 09/06/20 [History Last Taken Unknown] ondansetron 4 mg PO Q8H PRN PRN #10 tab 09/18/20 [Rx Last Taken Unknown] Allergy/AdvReac Type Severity Reaction Status Date / Time cyclobenzaprine HCl Allergy Other Verified 09/21/20 11:08 [From Flexeril] ketorolac tromethamine AdvReac Other Verified 09/21/20 11:08 [From Toradol] morphine AdvReac Other Verified 09/21/20 11:08 orphenadrine citrate AdvReac Other Verified 09/21/20 11:08 [From Norflex] prochlorperazine edisylate AdvReac Upset Verified 09/21/20 11:08 [From Compazine] Stomach prochlorperazine maleate AdvReac Upset Verified 09/21/20 11:08 [From Compazine] Stomach promethazine HCl AdvReac Upset Verified 09/21/20 11:08 [From Phenergan] Stomach tramadol AdvReac Other Verified 09/21/20 11:08 Surgical History S/P ACL surgery Social History Smoking Status: Never smoker Physical Exam Const alert and oriented x3 General Appearance: cooperative HEENT normocephalic and head/scalp atraumatic Eyes PERRL and EOMs intact bilaterally Neck supple and No nodes Resp clear to auscultation bilaterally Auscultation: diminished lung sounds Cardio regular rate and regular rhythm GI normal to inspection, nondistended, normoactive bowel sounds Extremity no clubbing, cyanosis or edema Skin no rashes or lesions noted Neuro CN's II-XII intact bilaterally Lab / Micro Data Result Diagrams: 09/22/20 03:40 09/22/20 03:40 Labs: Laboratory Results - last 24 hr 09/21/20 09/21/20 09/21/20 11:12 16:00 16:00 WBC RBC Hgb Hct MCV MCH MCHC RDW Std Deviation RDW Coeff of David Plt Count MPV Immature Gran % (Auto) Neut % (Auto) Lymph % (Auto) [place] % (Auto) Eos % (Auto) Baso % (Auto) Absolute Neuts (auto) Absolute Lymphs (auto) PT 13.0 INR 1.0 Fibrinogen 545 H D-Dimer Quant (PE/DVT) 0.42 Sodium Potassium Chloride Carbon Dioxide Anion Gap BUN Creatinine Estim Creat Clear Calc Est GFR (MDRD) Af Amer Est GFR (MDRD) Non-Af BUN/Creatinine Ratio Glucose Calcium Phosphorus Magnesium Total Bilirubin AST ALT Alkaline Phosphatase Lactate Dehydrogenase 224 Total Creatine Kinase 65 C-React Prot Ext Range 42.80 H B-Natriuretic Peptide Total Protein Albumin Globulin Albumin/Globulin Ratio Procalcitonin 0.07 09/21/20 09/22/20 09/22/20 16:00 03:40 03:40 WBC 4.7 RBC 4.63 Hgb 13.5 Hct 41.1 MCV 88.8 MCH 29.2 MCHC 32.8 RDW Std Deviation 42.9 RDW Coeff of David 13.2 Plt Count 203 MPV 10.1 Immature Gran % (Auto) 0.400 Neut % (Auto) 66.2 Lymph % (Auto) 24.7 [place] % (Auto) 8.5 Eos % (Auto) 0.0 Baso % (Auto) 0.2 Absolute Neuts (auto) 3.1 Absolute Lymphs (auto) 1.16 PT INR Fibrinogen D-Dimer Quant (PE/DVT) Sodium 144 Potassium 3.8 Chloride 114 H Carbon Dioxide 23.0 Anion Gap 7 BUN 14 Creatinine 0.82 Estim Creat Clear Calc 61.31 Est GFR (MDRD) Af Amer 93 Est GFR (MDRD) Non-Af 77 BUN/Creatinine Ratio 17.1 Glucose 125 H Calcium 8.2 L Phosphorus 2.5 Magnesium 1.9 Total Bilirubin 0.20 AST 36 ALT 46 Alkaline Phosphatase 79 Lactate Dehydrogenase Total Creatine Kinase C-React Prot Ext Range B-Natriuretic Peptide 12.0 Total Protein 6.4 Albumin 2.7 L Globulin 3.7 Albumin/Globulin Ratio 0.7 L Procalcitonin
--- NOTE | 2020-09-22 14:57 | PCM.PN.HOSP ---
Subjective Subjective Patient has mild abdominal discomfort. Patient is concerned of eating as it might worsen her diarrhea but reassured her it will make her diarrhea better. Mild cough, dry in nature. Pulse ox 93% on room air. Objective Data Objective Data Vital Signs: Vital Signs Temp Pulse Resp BP Pulse Ox 98 F 63 15 153/81 H 96 09/22/20 08:36 09/22/20 12:02 09/22/20 08:36 09/22/20 08:36 09/22/20 08:36 Oxygen Delivery Method Room Air Weight: 232 lb 2.348 oz Body Mass Index (BMI) 42.0 Intake & Output: Intake and Output for Last 24 Hours 09/20/20 09/21/20 09/22/20 23:59 23:59 23:59 Intake Total 2255 / 2255 240 / 240 Balance 2255 / 2255 240 / 240 Lab / Micro Data Result Diagrams: 09/22/20 03:40 09/22/20 03:40 Labs: Laboratory Results - last 24 hr 09/21/20 09/21/20 09/21/20 11:12 16:00 16:00 WBC RBC Hgb Hct MCV MCH MCHC RDW Std Deviation RDW Coeff of David Plt Count MPV Immature Gran % (Auto) Neut % (Auto) Lymph % (Auto) [place] % (Auto) Eos % (Auto) Baso % (Auto) Absolute Neuts (auto) Absolute Lymphs (auto) PT 13.0 INR 1.0 Fibrinogen 545 H D-Dimer Quant (PE/DVT) 0.42 Sodium Potassium Chloride Carbon Dioxide Anion Gap BUN Creatinine Estim Creat Clear Calc Est GFR (MDRD) Af Amer Est GFR (MDRD) Non-Af BUN/Creatinine Ratio Glucose Calcium Phosphorus Magnesium Total Bilirubin AST ALT Alkaline Phosphatase Lactate Dehydrogenase 224 Total Creatine Kinase 65 C-React Prot Ext Range 42.80 H B-Natriuretic Peptide Total Protein Albumin Globulin Albumin/Globulin Ratio Procalcitonin 0.07 09/21/20 09/22/20 09/22/20 16:00 03:40 03:40 WBC 4.7 RBC 4.63 Hgb 13.5 Hct 41.1 MCV 88.8 MCH 29.2 MCHC 32.8 RDW Std Deviation 42.9 RDW Coeff of David 13.2 Plt Count 203 MPV 10.1 Immature Gran % (Auto) 0.400 Neut % (Auto) 66.2 Lymph % (Auto) 24.7 [place] % (Auto) 8.5 Eos % (Auto) 0.0 Baso % (Auto) 0.2 Absolute Neuts (auto) 3.1 Absolute Lymphs (auto) 1.16 PT INR Fibrinogen D-Dimer Quant (PE/DVT) Sodium 144 Potassium 3.8 Chloride 114 H Carbon Dioxide 23.0 Anion Gap 7 BUN 14 Creatinine 0.82 Estim Creat Clear Calc 61.31 Est GFR (MDRD) Af Amer 93 Est GFR (MDRD) Non-Af 77 BUN/Creatinine Ratio 17.1 Glucose 125 H Calcium 8.2 L Phosphorus 2.5 Magnesium 1.9 Total Bilirubin 0.20 AST 36 ALT 46 Alkaline Phosphatase 79 Lactate Dehydrogenase Total Creatine Kinase C-React Prot Ext Range B-Natriuretic Peptide 12.0 Total Protein 6.4 Albumin 2.7 L Globulin 3.7 Albumin/Globulin Ratio 0.7 L Procalcitonin Physical Exam Narrative General: Awake, oriented x3, Cooperative. Overall looks better. HEENT: Atraumatic, PERRLA, EOMI, Normocephalic Oral: Dry oral mucosa. No Gingival or Mucosal Lesions/ Ulcerations Neck: Supple, No JVD, Negative Carotid Bruits Lungs: Air entry diminished in bilateral lung bases. No crepitation/rhonchi Cardiovascular: Regular rate, Regular Rhythm, Normal S1, Normal S2, No murmurs Abdomen: Bowel Sounds Present, Soft, Non Tender, Non-Distended : No renal angle tenderness. No suprapubic tenderness. Extremities: No edema, Capillary Refill Less than 3 Seconds Skin: No rashes, No breakdown Musculoskeletal: No Tenderness to Palpation of Joints or Extremities Neurological: Cranial nerves II-XII grossly intact, Deep Tendon Reflexes 2+/4 and Symmetrical, Neuro grossly intact Psych/Mental Status: Flat affect. Assessment & Plan Assessment/Plan (1) COVID-19: (2) Delirium due to another medical condition: (3) Benign essential hypertension: PLAN: This 55-year-old female admitted with 8 days of nausea vomiting and diarrhea generalized weakness and COVID-19 positive. Symptoms started on 09/15. . COVID-19 infection predominantly acute gastroenteritis: Patient is being admitted and Covid core floor. Patient is dehydrated. IV fluid resuscitation Ringer lactate 125 mill per hour. Supportive treatment for nausea vomiting. Soft diet and advance as per tolerated. Dexamethasone 6 mg IV started. I discussed with Dr. Ybarra and agreed with IV remdesivir as it might decrease duration of her symptoms. MD started. Incentive spirometry. Lactic acid normal. 09/22: Pulse ox 93% on room air. Continue remdesivir and dexamethasone. On Mucinex DM Tessalon pearls for symptomatic cough. Inflammatory markers are elevated including ferritin, CRP. INR normal. Lactic acid normal. Procalcitonin normal. 2. Bipolar disorder with anxiety and depression: [place] level is low at 0.5. Continue home medications. 3. Hypertension: Lisinopril 40 mg daily continued. Blood pressure is elevated 157/92. 4. Morbid obesity and DVT prophylaxis: BMI 40.3 kg/m?. Started on Lovenox 40 mg subcu twice daily as COVID-19 protocol. Discontinue if platelet count drops less than 50,000 or hemoglobin less than 8 g% Living will/advanced directive/end of life care: Patient does not have living will or advanced directive. After discussion of benefits/risks procedures involved with full code, DNR CC arrest and DNR CC, the patient and her daughter present in the room opted for full code. Patient does want artificial life support including intubation, tube feed, ventilator and/chest compression, central venous catheter, vasopressor and DC shock if needed Total time spent in [id number] encounter in discussion of advanced directive 16 minutes. Charges/Coding Visit Charges Inpatient E&M: 12541 [facility] Hosp L3
[2020-09-22] MEDS: guaiFENesin/D-Methorphan TAB.SR.12H 1 TABLET PO ×2 (15:46→22:15)
[2020-09-22] MEDS: dexAMETHasone 10 MG/ML Vial 6 MG IV (15:47)
--- NOTE | 2020-09-22 21:19 | NURSING ---
Verbal report received from Eli CLAYTON on ICU.
--- NOTE | 2020-09-22 21:25 | NURSING ---
report called to Maranda on PCU at 2116.
--- NOTE | 2020-09-22 21:47 | NURSING ---
Pt. arrives to PCU 123 at this time, ambulates into room on RA.
[2020-09-22] MEDS: Mirtazapine 15 MG Tablet PO (22:15)
[2020-09-23] VITALS (10 sets, daily range): BP systolic 119–136; BP diastolic 58–73; PULSE 47–70; RESP 15–20; TEMP 36.4–37.4; O2SAT 96–99
--- NOTE | 2020-09-23 04:36 | NURSING ---
Verbal report given to Shirley CLAYTON who is assuming care of the pt. at this time.
[2020-09-23] MEDS: Benzonatate 100 MG Capsule PO ×3 (05:28→21:45)
[2020-09-23] MEDS: Lithium Carbonate 300mg Capsule 300 MG PO ×3 (05:28→21:44)
[2020-09-23] MEDS: clonazePAM 0.5 MG Tablet PO ×3 (05:28→21:44)
[2020-09-23 07:59] LABS: Hemoglobin 13.1 g/dL (12.0-15.0); Mean Corp Hgb Conc 32.8 g/dL (32-36); Mean Corpuscular Hgb 28.6 pg (27.0-32.0); Mean Corpuscular Volume 87.3 fL (81-99); Mean Platelet Vol. 10.1 fl (6.2-12.0); Platelet Count 258 K/mm3 (150-450); RBC Distribution Width CV 13.2 % (11.6-14.6); Red Blood Count 4.58 M/mm3 (4.2-5.4); White Blood Count 4.7 K/mm3 (4.4-11.0)
[2020-09-23 08:23] LABS: ALB/GLOB Ratio 0.8 RATIO (0.9-2.4); AST(SGOT) 56 U/L (15-37); Alanine Aminotransfer ALT/SGPT 73 U/L (13-56); Albumin, Serum 2.8 g/dL (3.2-5.0); Alkaline Phosphatase 76 U/L (45-117); Anion Gap 3 (5-15); BUN 17 mg/dL (7-18); BUN/Creat Ratio 22.2 RATIO (10-20); Chloride 115 mmol/L (98-107); Creatinine, Serum 0.77 mg/dL (0.55-1.02); EST Glomerular Filtration Rate 83 mL/min (>60); Est Glom Filt Rate - Afr Amer 101 mL/min (>60); Estimated Creatinine Clearance 65.29 ml/min; Globulin 3.7 g/dL (2.2-4.2); Glucose 111 mg/dL (74-106); Potassium 3.8 mmol/L (3.5-5.1); Protein, Total 6.5 g/dL (6.4-8.2); Sodium Level 143 mmol/L (136-145)
[2020-09-23] MEDS: dexAMETHasone 10 MG/ML Vial 6 MG IV (09:47)
[2020-09-23] MEDS: Enoxaparin 40 MG/0.4 ML Syringe SC ×2 (09:48→21:45)
[2020-09-23] MEDS: guaiFENesin/D-Methorphan TAB.SR.12H 1 TABLET PO ×2 (09:48→21:45)
[2020-09-23] MEDS: Lisinopril 40 MG Tablet PO (09:48)
--- NOTE | 2020-09-23 10:58 | NURSING ---
Remdesivir not on the floor. Pharmacy contacted at 0920 and called at 1030.
[2020-09-23] MEDS: 0.9% Saline Lock 10 ML Syringe IV (11:14)
--- NOTE | 2020-09-23 14:16 | PN.HOSP_ITS ---
Subjective Subjective Patient has mild cough. Pulse ox 97% on room air. No fever Objective Data Objective Data Vital Signs: Vital Signs Temp Pulse Resp BP Pulse Ox 97.5 F L 67 20 H 136/58 H 97 09/23/20 10:30 09/23/20 10:30 09/23/20 10:30 09/23/20 10:30 09/23/20 10:30 Oxygen Delivery Method Room Air Weight: 233 lb 3.985 oz Body Mass Index (BMI) 42.0 Intake & Output: Intake and Output for Last 24 Hours 09/21/20 09/22/20 09/23/20 23:59 23:59 23:59 Intake Total 225 / 2255 1929 Balance 2255 / [id number] Lab / Micro Data Result Diagrams: 09/23/20 07:48 09/23/20 07:48 Labs: Laboratory Results - last 24 hr 09/23/20 09/23/20 07:48 07:48 WBC 4.7 RBC 4.58 Hgb 13.1 Hct 40.0 MCV 87.3 MCH 28.6 MCHC 32.8 RDW Std Deviation 42.0 RDW Coeff of David 13.2 Plt Count 258 MPV 10.1 Sodium 143 Potassium 3.8 Chloride 115 H Carbon Dioxide 25.0 Anion Gap 3 L BUN 17 Creatinine 0.77 Estim Creat Clear Calc 65.29 Est GFR (MDRD) Af Amer 101 Est GFR (MDRD) Non-Af 83 BUN/Creatinine Ratio 22.2 H Glucose 111 H Calcium 9.0 Total Bilirubin 0.30 AST 56 H ALT 73 H Alkaline Phosphatase 76 Total Protein 6.5 Albumin 2.8 L Globulin 3.7 Albumin/Globulin Ratio 0.8 L Micro: Microbiology 09/21/20 11:25 Blood Culture (Wb) - Anticubital Right Blood Culture - Preliminary No growth in 48 hours. 09/21/20 11:12 Blood Culture (Wb) - Left Wrist Blood Culture - Preliminary No growth in 48 hours. Physical Exam Narrative General: Awake, oriented x3, Cooperative. Overall looks better. HEENT: Atraumatic, PERRLA, EOMI, Normocephalic Oral: Dry oral mucosa. No Gingival or Mucosal Lesions/ Ulcerations Neck: Supple, No JVD, Negative Carotid Bruits Lungs: Air entry diminished in bilateral lung bases. No crepitation/rhonchi. No hypoxia Cardiovascular: Regular rate, Regular Rhythm, Normal S1, Normal S2, No murmurs Abdomen: Bowel Sounds Present, Soft, Non Tender, Non-Distended : No renal angle tenderness. No suprapubic tenderness. Extremities: No edema, Capillary Refill Less than 3 Seconds Skin: No rashes, No breakdown Musculoskeletal: No Tenderness to Palpation of Joints or Extremities Neurological: Cranial nerves II-XII grossly intact, Deep Tendon Reflexes 2+/4 and Symmetrical, Neuro grossly intact Psych/Mental Status: Flat affect. Assessment & Plan Assessment/Plan (1) COVID-19: (2) Delirium due to another medical condition: (3) Benign essential hypertension: PLAN: This 55-year-old female admitted with 8 days of nausea vomiting and diarrhea generalized weakness and COVID-19 positive. Symptoms started on 09/15. 1. COVID-19 infection predominantly acute gastroenteritis: Patient is being admitted and Covid core floor. Patient is dehydrated. IV fluid resuscitation Ringer lactate 125 mill per hour. Supportive treatment for nausea vomiting. Soft diet and advance as per tolerated. Dexamethasone 6 mg IV started. I discussed with Dr. Ybarra and agreed with IV remdesivir as it might decrease duration of her symptoms. MD started. Incentive spirometry. Lactic acid normal. 09/22: Pulse ox 93% on room air. Continue remdesivir and dexamethasone. On Mucinex DM Tessalon pearls for symptomatic cough. Inflammatory markers are elevated including ferritin, CRP. INR normal. Lactic acid normal. Procalciton in normal. 09/23: Continue treatment. Encourage incentive spirometry and PEP. 2. Bipolar disorder with anxiety and depression: [place] level is low at 0.5. Continue home medications. 3. Hypertension: Lisinopril 40 mg daily continued. Blood pressure is elevated 157/92. 4. Morbid obesity and DVT prophylaxis: BMI 40.3 kg/m?. Started on Lovenox 40 mg subcu twice daily as COVID-19 protocol. Discontinue if platelet count drops less than 50,000 or hemoglobin less than 8 g% Living will/advanced directive/end of life care: Patient does not have living will or advanced directive. After discussion of benefits/risks procedures involved with full code, DNR CC arrest and DNR CC, the patient and her daughter present in the room opted for full code. Patient does want artificial life support including intubation, tube feed, ventilator and/chest compression, central venous catheter, vasopressor and DC shock if needed Total time spent in [id number] encounter in discussion of advanced directive 16 minutes. Charges/Coding Visit Charges Inpatient E&M: 83789 Subs Hosp L2
[2020-09-23] MEDS: Mirtazapine 15 MG Tablet PO (21:45)
[2020-09-24] VITALS (11 sets, daily range): BP systolic 115–133; BP diastolic 57–69; PULSE 44–66; RESP 15–20; TEMP 36.2–37.2; O2SAT 94–100
[2020-09-24] MEDS: clonazePAM 0.5 MG Tablet PO ×3 (06:57→21:22)
[2020-09-24] MEDS: Benzonatate 100 MG Capsule PO ×3 (06:57→21:22)
[2020-09-24] MEDS: Lithium Carbonate 300mg Capsule 300 MG PO ×3 (06:58→21:22)
[2020-09-24 07:22] LABS: Hematocrit 40.7 % (37-47); Hemoglobin 13.5 g/dL (12.0-15.0); Mean Corp Hgb Conc 33.2 g/dL (32-36); Mean Corpuscular Volume 87.3 fL (81-99); Mean Platelet Vol. 9.9 fl (6.2-12.0); Platelet Count 282 K/mm3 (150-450); RBC Distribution Width CV 13.2 % (11.6-14.6); RBC Distribution Width SD 42.1 fl (35.1-43.9); Red Blood Count 4.66 M/mm3 (4.2-5.4); White Blood Count 5.5 K/mm3 (4.4-11.0)
[2020-09-24 07:50] LABS: ALB/GLOB Ratio 0.7 RATIO (0.9-2.4); AST(SGOT) 31 U/L (15-37); Alanine Aminotransfer ALT/SGPT 63 U/L (13-56); Albumin, Serum 2.6 g/dL (3.2-5.0); Alkaline Phosphatase 74 U/L (45-117); Anion Gap 3 (5-15); BUN 17 mg/dL (7-18); BUN/Creat Ratio 20.7 RATIO (10-20); Calcium,Total 9.1 mg/dL (8.5-10.1); Chloride 116 mmol/L (98-107); Creatinine, Serum 0.82 mg/dL (0.55-1.02); EST Glomerular Filtration Rate 77 mL/min (>60); Est Glom Filt Rate - Afr Amer 93 mL/min (>60); Estimated Creatinine Clearance 61.31 ml/min; Globulin 3.7 g/dL (2.2-4.2); Glucose 110 mg/dL (74-106); Potassium 3.8 mmol/L (3.5-5.1); Protein, Total 6.3 g/dL (6.4-8.2); Sodium Level 144 mmol/L (136-145)
--- NOTE | 2020-09-24 09:19 | RAD_ITS ---
INDICATION: covid 19 infection, Dyspnea on exertion EXAMINATION/TECHNIQUE: X-RAY - XR Chest 1 View COMPARISON: 09/21/2020. FINDINGS: Scattered subtle hazy opacities in the bilateral lungs. The cardiomediastinal silhouette is unremarkable. No pleural effusion or pneumothorax. No acute osseous abnormalities. RAD/Chest 1 View (Portable) IMPRESSION: Scattered subtle hazy opacities in the bilateral lungs consistent with known Covid infection. Electronically Signed: Elian Valdivia MD at 16:23 EDT Tel , Service support ,
[2020-09-24] MEDS: 0.9% Saline Lock 10 ML Syringe IV (09:50)
[2020-09-24] MEDS: dexAMETHasone 10 MG/ML Vial 6 MG IV (09:51)
[2020-09-24] MEDS: Enoxaparin 40 MG/0.4 ML Syringe SC ×2 (09:51→21:22)
[2020-09-24] MEDS: Lisinopril 40 MG Tablet PO (09:51)
[2020-09-24] MEDS: guaiFENesin/D-Methorphan TAB.SR.12H 1 TABLET PO ×2 (09:51→21:22)
--- NOTE | 2020-09-24 13:14 | CT_ITS ---
EXAM: CT ANGIOGRAPHY CHEST WITHOUT AND WITH INTRAVENOUS CONTRAST CLINICAL INDICATION: Dyspnea at rest, COVID 19, R/O PE TECHNIQUE: Helically acquired angiography images were obtained of the chest without and with intravenous contrast. This CT exam was performed using one or more of the following dose reduction techniques: automated exposure control, adjustment of the mA and/or kV according to patient size, and/or use of iterative reconstruction technique. This report was created using [employer] report generation technology. MIP reconstructed images were created and reviewed. CONTRAST: IV 100mL Isovue-370 COMPARISON: None. FINDINGS: PULMONARY ARTERIES: Unremarkable. Normal in caliber. No evidence of pulmonary embolism. AORTA: Unremarkable. Normal in caliber. No evidence of dissection. GREAT VESSELS OF AORTIC ARCH: Unremarkable. Normal in caliber. No evidence of dissection. LUNGS AND PLEURAL SPACES: Multiple small peripheral groundglass opacities scattered in both lungs due to Covid 19 pneumonia. No mass. No pleural effusion or thickening. HEART: Unremarkable. Heart size is normal. No pericardial effusion. No signs of right heart strain. MEDIASTINUM: Unremarkable. No mediastinal or hilar adenopathy. Esophagus is unremarkable. No hiatal hernia. THYROID: 1.9 and 2 cm hypodense nodules in the right thyroid lobe. BONES/JOINTS: Unremarkable. No suspicious lytic or blastic abnormality. CT/CTA Chest W/WO Contrast IMPRESSION: 1. No CTA evidence of pulmonary thromboemboli, thoracic aortic aneurysm or dissection. 2. Multiple scattered peripheral groundglass opacities in both lungs consistent with Covid 19 pneumonia. 3. 1.9 and 2 cm hypodense nodules in the right thyroid lobe. Baseline thyroid ultrasound will be helpful for further evaluation. Electronically Signed: Kip Pinzon MD at 15:10 EDT , Service support ,
--- NOTE | 2020-09-24 14:37 | PCM.PN.HOSP ---
Subjective Subjective Patient is states dyspnea on exertion and mild cough. Diarrhea has resolved. Objective Data Objective Data Vital Signs: Vital Signs Temp Pulse Resp BP Pulse Ox 98.1 F 66 20 H 133/69 H 96 09/24/20 13:38 09/24/20 13:38 09/24/20 13:38 09/24/20 13:38 09/24/20 13:38 Oxygen Flow Rate (L/min) 97 Oxygen Delivery Method Room Air Weight: 230 lb 13.184 oz Body Mass Index (BMI) 42.0 Intake & Output: Intake and Output for Last 24 Hours 09/22/20 09/23/20 09/24/20 23:59 23:59 23:59 Intake Total 1929 1180 / 1480 1200 / 1200 Balance [id number] 1180 / 1480 1200 / 1200 Lab / Micro Data Result Diagrams: 09/24/20 07:05 09/24/20 07:05 Labs: Laboratory Results - last 24 hr 09/24/20 09/24/20 07:05 07:05 WBC 5.5 RBC 4.66 Hgb 13.5 Hct 40.7 MCV 87.3 MCH 29.0 MCHC 33.2 RDW Std Deviation 42.1 RDW Coeff of David 13.2 Plt Count 282 MPV 9.9 Sodium 144 Potassium 3.8 Chloride 116 H Carbon Dioxide 25.0 Anion Gap 3 L BUN 17 Creatinine 0.82 Estim Creat Clear Calc 61.31 Est GFR (MDRD) Af Amer 93 Est GFR (MDRD) Non-Af 77 BUN/Creatinine Ratio 20.7 H Glucose 110 H Calcium 9.1 Total Bilirubin 0.40 AST 31 ALT 63 H Alkaline Phosphatase 74 Total Protein 6.3 L Albumin 2.6 L Globulin 3.7 Albumin/Globulin Ratio 0.7 L Micro: Microbiology 09/21/20 11:25 Blood Culture (Wb) - Anticubital Right Blood Culture - Preliminary No growth in 48 hours. 09/21/20 11:12 Blood Culture (Wb) - Left Wrist Blood Culture - Preliminary No growth in 48 hours. Physical Exam Narrative General: Awake, oriented x3, Cooperative. Overall looks better. HEENT: Atraumatic, PERRLA, EOMI, Normocephalic Oral: Dry oral mucosa. No Gingival or Mucosal Lesions/ Ulcerations Neck: Supple, No JVD, Negative Carotid Bruits Lungs: Air entry diminished in bilateral lung bases. No crepitation/rhonchi. No hypoxia Cardiovascular: Regular rate, Regular Rhythm, Normal S1, Normal S2, No murmurs Abdomen: Bowel Sounds Present, Soft, Non Tender, Non-Distended : No renal angle tenderness. No suprapubic tenderness. Extremities: No edema, Capillary Refill Less than 3 Seconds Skin: No rashes, No breakdown Musculoskeletal: No Tenderness to Palpation of Joints or Extremities Neurological: Cranial nerves II-XII grossly intact, Deep Tendon Reflexes 2+/4 and Symmetrical, Neuro grossly intact Psych/Mental Status: Flat affect. Assessment & Plan Assessment/Plan (1) COVID-19: (2) Delirium due to another medical condition: (3) Benign essential hypertension: PLAN: This 55-year-old female admitted with 8 days of nausea vomiting and diarrhea generalized weakness and COVID-19 positive. Symptoms started on 09/15. 1. COVID-19 infection predominantly acute gastroenteritis: Patient is being admitted and Covid core floor. Patient is dehydrated. IV fluid resuscitation Ringer lactate 125 mill per hour. Supportive treatment for nausea vomiting. Soft diet and advance as per tolerated. Dexamethasone 6 mg IV started. I discussed with Dr. Ybarra and agreed with IV remdesivir as it might decrease duration of her symptoms. MD started. Incentive spirometry. Lactic acid normal. 09/22: Pulse ox 93% on room air. Continue remdesivir and dexamethasone. On Mucinex DM Tessalon pearls for symptomatic cough. Inflammatory markers are elevated including ferritin, CRP. INR normal. Lactic acid normal. Procalcitonin normal. 09/23: Continue treatment. Encourage incentive spirometry and PEP. 09/24: CT angiogram chest ordered to rule out PE as patient has dyspnea on exertion. Repeat x-ray individually reviewed and does not show acute change from previous exam. Official report pending. 2. Bipolar disorder with anxiety and depression: [place] level is low at 0.5. Continue home medications. 3. Hypertension: Lisinopril 40 mg daily continued. Blood pressure is elevated 157/92. 4. Morbid obesity and DVT prophylaxis: BMI 40.3 kg/m?. Started on Lovenox 40 mg subcu twice daily as COVID-19 protocol. Discontinue if platelet count drops less than 50,000 or hemoglobin less than 8 g% Living will/advanced directive/end of life care: Patient does not have living will or advanced directive. After discussion of benefits/risks procedures involved with full code, DNR CC arrest and DNR CC, the patient and her daughter present in the room opted for full code. Patient does want artificial life support including intubation, tube feed, ventilator and/chest compression, central venous catheter, vasopressor and DC shock if needed Total time spent in [id number] encounter in discussion of advanced directive 16 minutes. Charges/Coding Visit Charges Inpatient E&M: 45228 Subs Hosp L2
[2020-09-24] MEDS: Mirtazapine 15 MG Tablet PO (21:22)
[2020-09-25 03:00] VITALS: BP 134/78; PULSE 55; RESP 15; TEMP 36.6; O2SAT 96
[2020-09-25 06:31] LABS: Hematocrit 38.3 % (37-47); Hemoglobin 12.7 g/dL (12.0-15.0); Mean Corp Hgb Conc 33.2 g/dL (32-36); Mean Corpuscular Hgb 28.6 pg (27.0-32.0); Mean Corpuscular Volume 86.3 fL (81-99); Mean Platelet Vol. 10.2 fl (6.2-12.0); Platelet Count 317 K/mm3 (150-450); RBC Distribution Width CV 13.3 % (11.6-14.6); RBC Distribution Width SD 42.4 fl (35.1-43.9); Red Blood Count 4.44 M/mm3 (4.2-5.4)
[2020-09-25] MEDS: Benzonatate 100 MG Capsule PO ×2 (06:41→13:28)
[2020-09-25] MEDS: clonazePAM 0.5 MG Tablet PO ×2 (06:41→13:28)
[2020-09-25] MEDS: Lithium Carbonate 300mg Capsule 300 MG PO ×2 (06:41→15:12)
[2020-09-25 07:01] LABS: ALB/GLOB Ratio 0.9 RATIO (0.9-2.4); AST(SGOT) 20 U/L (15-37); Alanine Aminotransfer ALT/SGPT 55 U/L (13-56); Albumin, Serum 2.7 g/dL (3.2-5.0); Alkaline Phosphatase 75 U/L (45-117); Anion Gap 5 (5-15); BUN 19 mg/dL (7-18); Calcium,Total 9.1 mg/dL (8.5-10.1); Chloride 114 mmol/L (98-107); EST Glomerular Filtration Rate 92 mL/min (>60); Est Glom Filt Rate - Afr Amer 111 mL/min (>60); Estimated Creatinine Clearance 71.82 ml/min; Globulin 2.9 g/dL (2.2-4.2); Glucose 117 mg/dL (74-106); Potassium 4.2 mmol/L (3.5-5.1); Protein, Total 5.6 g/dL (6.4-8.2); Sodium Level 143 mmol/L (136-145)
[2020-09-25 08:01] VITALS: O2SAT 98
[2020-09-25 08:16] VITALS: O2SAT 97
[2020-09-25 09:45] VITALS: O2SAT 94; O2SAT 96
[2020-09-25] MEDS: guaiFENesin/D-Methorphan TAB.SR.12H 1 TABLET PO (10:29)
[2020-09-25] MEDS: 0.9% Saline Lock 10 ML Syringe IV (10:29)
[2020-09-25] MEDS: Enoxaparin 40 MG/0.4 ML Syringe SC (10:30)
[2020-09-25] MEDS: Lisinopril 40 MG Tablet PO (10:30)
[2020-09-25] MEDS: dexAMETHasone 10 MG/ML Vial 6 MG IV (10:30)
[2020-09-25 10:35] VITALS: BP 113/61; PULSE 61; RESP 16; TEMP 36.6; O2SAT 96
[2020-09-25 15:20] VITALS: BP 119/70; PULSE 69; RESP 16; TEMP 36.6; O2SAT 97
--- NOTE | 2020-09-25 15:27 | PCM.DC ---
Discharge Instructions Diet Discharge Diet: Low fat / Low cholesterol Activity Discharge Activity: Return to Normal Activity Dressing / Incision Call your doctor if you observe: Fever of 101 or Higher, Shortness of breath, Dizziness, Swelling in the ankles, Chest pain and Increased palpitations (irregular heartbeat) Follow Up Care Test Results: Test results from this visit will be discussed in further detail at your follow-up appointment, if applicable. Discharge Plan Admission Admit Date/Time: 09/21/20 13:06 Attending Provider: Mak Shen Primary Care Provider: Nelson Gar Consulting Providers: Lupillo Ybarra Patient Instructions: Coronavirus Disease 2019 (COVID-19): Overview, Coronavirus Disease 2019 (COVID-19): Caring for Yourself or Others, COVID-19 and the Flu: What's the Difference? Discharge Orders/Prescriptions Prescriptions: New dexamethasone 2 mg tablet 6 mg PO DAILY 6 Days Qty: 18 RF: 0 Continued lisinopril 40 MG tablet 40 mg PO DAILY RF: 0 lithium carbonate 300 MG tablet 300 mg PO TID RF: 0 clonazepam 1 MG tablet 0.5 mg PO TID RF: 0 hydroxyzine HCl 50 mg Tablet 50 mg PO 4X/DAY RF: 0 mirtazapine [Remeron] 15 mg Tablet 15 mg PO QHS RF: 0 hydrocodone-acetaminophen 1 TABLET tablet 1 tab PO Q6H PRN PRN (Reason: Pain) 3 Days Qty: 10 RF: 0 ondansetron 4 MG tablet 4 mg PO Q8H PRN PRN (Reason: Nausea) Qty: 10 RF: 0 Referrals / Follow Up: Nelson Gar MD [Primary Care Provider] - Within 2 Weeks Care Physician,No Primary [NON-STAFF] - Disposition Disposition (needs filled in before D/C Order can be placed): Home, self care
--- NOTE | 2020-09-25 15:33 | DS.PCM_ITS ---
Providers Date of Admission: 09/21/20 Primary Care Physician: Dr. Nelson Gar MD Consultations 09/21/20 13:03 Consult: Infectious Disease Routine Consulting Provider: Lupillo Ybarra Reason for Consult: Covid-19. Mainly GI symptoms EMERGENT Consult: No MD Notified: Yes Date Notified: 09/21/20 Time Notified: 13:03 Method of Notification: Verbal Reason For Visit: COVID INFECTION Diagnosis Discharge Diagnosis (1) COVID-19: Status: Acute Code(s): U07.1 - COVID-19 (2) Delirium due to another medical condition: Status: Acute Code(s): F05 - Delirium due to known physiological condition (3) Benign essential hypertension: Status: Chronic Code(s): I10 - Essential (primary) hypertension Medications at Discharge Home Medications lisinopril 40 mg PO DAILY 06/14/13 lithium carbonate 300 mg PO TID 06/18/14 clonazepam 0.5 mg PO TID 08/19/14 hydrocodone-acetaminophen 1 tab PO Q6H PRN PRN 3 Days #10 tablet 09/06/20 hydroxyzine HCl 50 mg PO 4X/DAY 09/06/20 mirtazapine [Remeron] 15 mg PO QHS 09/06/20 ondansetron 4 mg PO Q8H PRN PRN #10 tab 09/18/20 dexamethasone 6 mg PO DAILY 6 Days #18 tab 09/25/20 Hospital Course Operations None Procedures None Summary of Care Provided Minutes Spent on Discharge: 42 Hospital Course: Per HPI: CYNTHIA RAZA, is a 55 F with history of bipolar disorder on lithium, mirtazapine came to ER with 8 days symptoms of COVID-19 predominantly GI symptoms. This is started with generalized weakness with body aches and then progressed to nausea, vomiting and diarrhea for last 4 days. She is going to bathroom every 1 or 2 hours. She also is confused, does not remember the events well as per the daughter. Patient looks dehydrated. Denies respiratory symptoms including cough, sputum production, sore throat. No headache. Labs in ED reviewed. Chest x-ray reported normal. Pulse ox 94% on room air in ED Hospital Course: 1. COVID-19 infection predominantly acute gastroenteritis: Patient is being admitted and Covid core floor. Patient is dehydrated. IV fluid resuscitation Ringer lactate 125 mill per hour. Supportive treatment for nausea vomiting. Soft diet and advance as per tolerated. Dexamethasone 6 mg IV started. I discussed with Dr. Ybarra and agreed with IV remdesivir as it might decrease duration of her symptoms. MD started. Incentive spirometry. Lactic acid normal. 09/22: Pulse ox 93% on room air. Continue remdesivir and dexamethasone. On Mucinex DM Tessalon pearls for symptomatic cough. Inflammatory markers are elev ated including ferritin, CRP. INR normal. Lactic acid normal. Procalcitonin normal. 09/23: Continue treatment. Encourage incentive spirometry and PEP. 09/24: CT angiogram chest ordered to rule out PE as patient has dyspnea on exertion. Repeat x-ray individually reviewed and does not show acute change from previous exam. Official report pending. 09/25/2020: CT of the chest was unremarkable, D-dimer was normal. She is feeling much better today and has remained on room air both with activity and at rest for the last 48 hours. I discussed with the plan for discharge today she expressed understanding of the risk and benefits of going home and would like to go home today. She will complete a 10-day course of Decadron and will need to be quarantined for a total of 20 days. In discussion with the infectious disease, did not feel the need for any anticoagulation at this time given her above the negative studies as well as a normal D-dimer. 2. Bipolar disorder with anxiety and depression: [place] level is low at 0.5. Continue home medications. 3. Hypertension: Lisinopril 40 mg daily continued. Blood pressure is elevated 157/92. 4. Morbid obesity and DVT prophylaxis: BMI 40.3 kg/m?. Started on Lovenox 40 mg subcu twice daily as COVID-19 protocol. Discontinue if platelet count drops less than 50,000 or hemoglobin less than 8 g% Physical Exam Const alert, oriented x3 and no apparent distress General Appearance: cooperative HEENT normocephalic and moist oral mucous membranes Eyes PERRL, EOMs intact bilaterally and conjunctivae normal Neck supple and no JVD Resp normal respiratory effort, no retractions, no use of accessory muscles and clear to auscultation bilaterally Auscultation: Negative for crackles, rales, rhonchi or wheezes Cardio regular rate, regular rhythm, S1 normal heart sound, S2 normal heart sound and no murmurs GI soft to palpation, non-tender and non-distended; Negative for hepatosplenomegaly Extremity no clubbing, cyanosis or edema Skin no rashes or lesions noted Neuro no focal motor deficits and no sensory deficits noted Psych Appearance: appropriate Mood & Affect: flat affect Weight / BMI Weight Weight: 229 lb 11.547 oz Body Mass Index (BMI) 42.0 ABG / Lab / Microbiology Data Result Diagrams: 09/25/20 06:08 09/25/20 06:08 Laboratory: Laboratory Results - last 24 hr 09/25/20 09/25/20 06:08 06:08 WBC 7.0 RBC 4.44 Hgb 12.7 Hct 38.3 MCV 86.3 MCH 28.6 MCHC 33.2 RDW Std Deviation 42.4 RDW Coeff of David 13.3 Plt Count 317 MPV 10.2 Sodium 143 Potassium 4.2 Chloride 114 H Carbon Dioxide 24.0 Anion Gap 5 BUN 19 H Creatinine 0.70 Estim Creat Clear Calc 71.82 Est GFR (MDRD) Af Amer 111 Est GFR (MDRD) Non-Af 92 BUN/Creatinine Ratio 27.0 H Glucose 117 H Calcium 9.1 Total Bilirubin 0.30 AST 20 ALT 55 Alkaline Phosphatase 75 Total Protein 5.6 L Albumin 2.7 L Globulin 2.9 Albumin/Globulin Ratio 0.9 Microbiology: Microbiology 09/21/20 11:25 Blood Culture (Wb) - Anticubital Right Blood Culture - Preliminary No growth in 48 hours. 09/21/20 11:12 Blood Culture (Wb) - Left Wrist Blood Culture - Preliminary No growth in 48 hours. Radiography Diagnostic Testing: Radiology Impression Chest X-Ray 09/24/20 09:19 IMPRESSION: Scattered subtle hazy opacities in the bilateral lungs consistent with known Covid infection. Electronically Signed: Elian Valdivia MD at 16:23 EDT Tel , Service support , D/C Instructions Discharge Diet: Low fat / Low cholesterol Call your doctor if you observe: Fever of 101 or Higher, Shortness of breath, Dizziness, Swelling in the ankles, Chest pain and Increased palpitations (irregular heartbeat) Meaningful Use Info Meaningful Use Diagnoses (Choose all that apply): None applicable Discharge Plan Admission Admit Date/Time: 09/21/20 13:06 Attending Provider: Mak Shen Primary Care Provider: Nelson Gar Consulting Providers: Lupillo Ybarra Instructions Patient Instructions: Coronavirus Disease 2019 (COVID-19): Overview, Cor onavirus Disease 2019 (COVID-19): Caring for Yourself or Others, COVID-19 and the Flu: What's the Difference? Discharge Orders/Prescriptions Prescriptions: New dexamethasone 2 mg tablet 6 mg PO DAILY 6 Days Qty: 18 RF: 0 Continued lisinopril 40 MG tablet 40 mg PO DAILY RF: 0 lithium carbonate 300 MG tablet 300 mg PO TID RF: 0 clonazepam 1 MG tablet 0.5 mg PO TID RF: 0 hydroxyzine HCl 50 mg Tablet 50 mg PO 4X/DAY RF: 0 mirtazapine [Remeron] 15 mg Tablet 15 mg PO QHS RF: 0 hydrocodone-acetaminophen 1 TABLET tablet 1 tab PO Q6H PRN PRN (Reason: Pain) 3 Days Qty: 10 RF: 0 ondansetron 4 MG tablet 4 mg PO Q8H PRN PRN (Reason: Nausea) Qty: 10 RF: 0 Referrals / Follow Up: Nelson Gar MD [Primary Care Provider] - Within 2 Weeks Care Physician,No Primary [NON-STAFF] - Disposition Disposition (needs filled in before D/C Order can be placed): Home, self care Charges/Coding Visit Charges Inpatient E&M: 23485 Disch Hosp
--- NOTE | 2020-09-26 15:29 | CASEMGMT ---
RN CM Discharge Follow Up COVID Phone Call: Call Date: 09.26.20 Discharge Date: 09.25.20 Time of Call:[id number] Duration:<1 min Admitting Dx: KASANDRA CLAYTON CM attempted to complete follow up COVID phone call after recent hospitalization. No answer. Answering machine was unidentified. Did not leave a message.
== END 2020-09-25 17:00 | disposition home or self-care (01) | DRG 178 ==
LOC: ED 12:48 → ICU 13:30 → PCU 09-22 20:57
PROVIDERS: Internal Medicine Infectious Disease; Admitting Provider Internal Medicine; Emergency Provider Emergency Medicine; PCP Family Medicine; Visit Provider Family Medicine
DX: U07.1 COVID-19 (principal); A08.39 Other viral enteritis; F05 Delirium due to known physiological condition; Z68.41 Body mass index [BMI] 40.0-44.9, adult; F31.9 Bipolar disorder, unspecified; E66.01 Morbid (severe) obesity due to excess calories; F41.9 Anxiety disorder, unspecified; I10 Essential (primary) hypertension; E86.0 Dehydration; Z79.899 Other long term (current) drug therapy
CPT/HCPCS: 36415; 70450; 71045; 71275; 80053; 80178; 82550; 83605; 83615; 83735; 83880; 84100; 84145; 84484; 85025; 85027; 85379; 85384; 85610; 86140; 87040; 93005; 94667; 94668; 96374; 97110; 97162; 97166; 97530; 97535; 99251; 99285; J7040; J7050; J7120; Q9967; A4216; G0463; J2405

== ENCOUNTER → 2020-12-12 10:13 | Outpatient (CLI) | payer MEDICARE, MEDICAID, SELFPAY ==
[2020-12-12 11:16] LABS: Creatinine, Serum 0.86 mg/dL (0.55-1.02); EST Glomerular Filtration Rate 73 mL/min (>60); Est Glom Filt Rate - Afr Amer 88 mL/min (>60); Thyroid Stim Hormone (TSH) 1.61 uIU/mL (0.358-3.74)
== END ==
PROVIDERS: PCP Family Medicine; Referring Provider Psychiatry & Neurology Psychiatry; Visit Provider Psychiatry & Neurology Psychiatry
DX: Z79.899 Other long term (current) drug therapy (principal)
CPT/HCPCS: 36415; 80178; 82565; 84443

== ENCOUNTER 2021-05-14 11:55 | Outpatient (CLI) | payer MEDICARE, MEDICAID, SELFPAY ==
[2021-05-14 14:34] LABS: Creatinine, Serum 0.96 mg/dL (0.55-1.02); EST Glomerular Filtration Rate 64 mL/min (>60); Est Glom Filt Rate - Afr Amer 77 mL/min (>60)
== END 2021-05-14 23:59 | disposition home or self-care (01) ==
PROVIDERS: PCP Family Medicine; Visit Provider Psychiatry & Neurology Psychiatry
DX: Z79.899 Other long term (current) drug therapy (principal)
CPT/HCPCS: 36415; 80178; 82565; 84443

== ENCOUNTER 2021-09-14 13:00 | Observation (INO) | payer MEDICARE, MEDICAID, SELFPAY ==
[2021-09-14] VITALS (9 sets, daily range): BP systolic 115–154; BP diastolic 53–86; PULSE 68–92; RESP 14–20; TEMP 36.1–36.9; O2SAT 94–98; BMI 45.8; BMI 44.7
[2021-09-14 13:20] LABS: Bedside Glucose 134 mg/dL (74-106)
--- NOTE | 2021-09-14 13:42 | CT_ITS ---
STUDY: CT BRAIN WITHOUT CONTRAST REASON FOR EXAM: Female, 56 years old. ALTERED MENTAL STATUS Technologist Notes CONFUSION X 2 DAYS, BILAT ARM TWITCHING, HTN confused TECHNIQUE: Transaxial CT imaging of the brain was performed without administration of intravenous contrast material. Individualized dose optimization techniques were used for this CT. COMPARISON: 09.21.20 FINDINGS: Normal calvarium. Normal soft tissues. Normal size ventricles and extra-axial spaces for the patient''s age. Normal white matter tracts of the cerebral hemispheres. Normal basal ganglia and thalami. Normal brainstem. Normal cerebellum. There is no intracranial hemorrhage. There are no findings of an acute ischemic infarction. Normal visualized paranasal sinuses. ASPECTS 10 CT/Brain/Head without Contrast IMPRESSION: There are no acute intracranial findings. Electronically Signed: Ariel Serrano MD at 14:14 EDT ,
--- NOTE | 2021-09-14 13:43 | EKG12_ITS ---
Test Reason : CONFUSION Blood Pressure : / mmHG Vent. Rate : 076 BPM Atrial Rate : 076 BPM P-R Int : 162 ms QRS Dur : 080 ms QT Int : 384 ms P-R-T Axes : 039 061 061 degrees QTc Int : 432 ms Normal sinus rhythm Normal ECG Confirmed by MIRIAM OLVERA, GEOVANNY ([id number]), features editor SAÚL GUERRERO ([id number]) on 09/17/2021 10:47:06 AM Referred By: JOANIE Confirmed By:GEOVANNY PINEDA MD
--- NOTE | 2021-09-14 13:44 | EDS_ITS ---
HPI History of Present Illness Chief Complaint: Confusion Informant: patient Onset/Context/Timing Onset: Today and Yesterday Context: Gradual Onset Timing: Continuous Current Severity: Mild Maximum Severity: Mild Narrative Narrative: 56-year-old female history of hypertension and bipolar disease. Yesterday had some confusing and abnormal text to her 1 daughter. Today her other daughter found her shaking seem more confused she had trouble using her phone at home, texting and when she got here she had trouble telling them her last name. They deny any recent fall or head trauma. They deny any recent fever or illness. They deny any recent hospitalization. There is been no recent medication changes. Prior similar symptoms: No Recent Illness/Hospitalization: No [facility] Medical History Bipolar disorder Depression Hypertension Home Medications lisinopril 40 mg PO DAILY 06/14/13 [History Last Taken 12/11/14 40 MG] lithium carbonate 300 mg PO TID 06/18/14 [History Last Taken 12/11/14 300 MG] clonazepam 0.5 mg PO TID 08/19/14 [History Last Taken 12/11/14 1 MG] hydrocodone-acetaminophen 1 tab PO Q6H PRN PRN 3 Days #10 tablet 09/06/20 [Rx Last Taken Unknown] hydroxyzine HCl 50 mg PO 4X/DAY 09/06/20 [History Last Taken Unknown] mirtazapine [Remeron] 15 mg PO QHS 09/06/20 [History Last Taken Unknown] ondansetron 4 mg PO Q8H PRN PRN #10 tab 09/18/20 [Rx Last Taken Unknown] dexamethasone 6 mg PO DAILY 6 Days #18 tab 09/25/20 [Rx Last Taken Unknown] Allergy/AdvReac Type Severity Reaction Status Date / Time cyclobenzaprine HCl Allergy Other Verified 09/21/20 11:08 [From Flexeril] ketorolac tromethamine AdvReac Other Verified 09/21/20 11:08 [From Toradol] morphine AdvReac Other Verified 09/21/20 11:08 orphenadrine citrate AdvReac Other Verified 09/21/20 11:08 [From Norflex] prochlorperazine edisylate AdvReac Upset Verified 09/21/20 11:08 [From Compazine] Stomach prochlorperazine maleate AdvReac Upset Verified 09/21/20 11:08 [From Compazine] Stomach promethazine HCl AdvReac Upset Verified 09/21/20 11:08 [From Phenergan] Stomach tramadol AdvReac Other Verified 09/21/20 11:08 Surgical History S/P ACL surgery Social History Smoking Status: Never smoker ROS ROS ED ROS Narrative Confusion. Review of Systems ROS Unobtainable: Denies due to encephalopathy Constitutional Constitutional ED: Denies fever(s) Eyes Eyes: Denies change in vision ENT ENT ED: Denies ear pain Cardiovascular Cardiovascular: Denies chest pain Respiratory/Chest Respiratory/Chest: Denies cough, dyspnea or sputum Gastrointestinal Gastrointestinal: Denies abdominal pain, diarrhea, nausea or vomiting Genitourinary Genitourinary ED: Denies dysuria Musculoskeletal Musculoskeletal: Denies myalgias Integumentary Denies rash Neurologic Neurologic: Denies headache(s) Psychiatric Psychiatric: Denies depression Endocrine Endocrinology: Denies polyuria Allergic/Immunologic Allergic/Immunologic ED: Denies urticaria EXAM Physical Exam Narrative Exam Narrative: 56-year-old female here no acute distress. Vital signs stable afebrile. Pulse ox 96% on room air no signs hypoxia. H EENT exam unremarkable atraumatic. Pupils round reactive light. No facial droop. Normal speech. N jeanine nontender no meningismus no lymphadenopathy. Lungs clear to auscultation. Heart regular rhythm. Abdomen soft nontender. Moving all 4 extremities. Equal symmetrical 5-5 child and family services worker strength. Dorsi plantarflexion intact. Fingertip to nose within normal limits. No drift of either upper or lower extremity. Neurologically she is awake. She is alert. She knows the year and the president she had difficulty on the month thought it was July and thought it was Friday. Daughter states this is not her normal mentation. Const Vital Signs: 09/14/21 13:01 09/14/21 14:09 09/14/21 15:04 Temperature 97 F L Temperature Source Temporal Pulse Rate 92 81 69 Respiratory Rate 18 20 H 14 Blood Pressure 154/86 H 126/71 H 125/76 H Blood Pressure Mean 108 89 92 Pulse Ox 96 96 95 Oxygen Delivery Method Room Air Room Air Room Air Positive well nourished, well developed and obese; Negative for cachectic, contractures or unkempt General Appearance ED: well developed and NAD; Negative for unkempt, cachectic, contractures, cyanotic, diaphoretic or pallor Nutritional Appearance: obese; Negative for cachectic HEENT Reports moist mucous membranes Negative for trauma or tenderness Eyes PERRL and EOMs intact bilaterally General Eye ED: Negative for pale conjunctiva or scleral icterus Neck no lymphadenopathy, supple and no JVD General: Negative for tenderness Chest Wall inspection of chest normal and palpation of chest normal Resp normal respiratory effort and clear to auscultation bilaterally Effort and Inspection: Negative for pain with movement Auscultation: Negative for rales, rhonchi or wheezes Cardio regular rate, regular rhythm, S1 normal heart sound, S2 normal heart sound and no murmurs GI normal to inspection, nondistended, normoactive bowel sounds, non-tender, non- distended and no masses Inspection: Negative for abdominal distention Auscultation: normoactive bowel sounds Palpation: soft; Negative for tender, guarding or rebound tenderness present Back/Spine no CVA tenderness General Back: Negative for CVA tenderness Cervical Spine: Negative for cervical spine tenderness Thoracic Spine / Upper Back: Negative for thoracic spinal tenderness Extremity normal to inspection General Extremety ED: Negative for edema or tenderness General Extremity: Negative for edema Neuro oriented x3 and CN's II-XII intact bilaterally Neuro Narrative: Patient has normal speech. Normal motor strength. She is confused to the day of the week and the month. She did know the president and slowly was able to determine what year it was. Sensorium / Orientation: alert and orientation impaired; Negative for lethargic or stuporous Motor Exam: strength 5/5 throughout Psych mental status grossly normal Appearance: Negative for unkempt Attitude: No agitated Mood & Affect: Negative for depressed, anxious or tearful Skin no rashes or lesions noted and no wounds General Skin Exam: Negative for jaundice or pallor MDM MDM MDM Narrative Medical decision making narrative: 56-year-old female with confusion. CAT scan and labs are pending. Exam patient is doing well at 3:30 PM. Discussed with her and her daughter at bedside her test results and the negative work-up. Patient still has confusion we know of a specific cause discussed with the patient and daughter and she is willing to be admitted for further evaluation. Lab Data Attestation: I reviewed the patient's lab results. Lab results narrative: CBC normal white count of 7. H&H 14 and 46. Electrolytes show a gap of 6 normal BUN and creatinine at 13 and 1. Glucose 126. AST slightly elevated 124 and ALT 160. Troponin normal at less than 3. Urinalysis negative. Alcohol negative. Labs: Laboratory Results - last 24 hr 09/14/21 09/14/21 09/14/21 13:14 13:15 13:15 WBC 7.2 RBC 5.17 Hgb 14.7 Hct 46.1 MCV 89.2 MCH 28.4 MCHC 31.9 L RDW Std Deviation 43.3 RDW Coeff of David 13.2 Plt Count 342 MPV 9.5 Immature Gran % (Auto) 0.100 Neut % (Auto) 58.5 Lymph % (Auto) 34.4 Esmeralda % (Auto) 5.4 Eos % (Auto) 1.0 Baso % (Auto) 0.6 Absolute Neuts (auto) 4.2 Absolute Lymphs (auto) 2.47 Nucleated RBC % 0 Sodium 140 Potassium 4.2 Chloride 109 H Carbon Dioxide 25.0 Anion Gap 6 BUN 13 Creatinine 1.03 H Estim Creat Clear Calc 46.02 Est GFR (MDRD) Af Amer 71 Est GFR (MDRD) Non-Af 59 L BUN/Creatinine Ratio 12.6 Glucose 126 H Calcium 9.7 Total Bilirubin 0.50 AST 124 H ALT 160 H Alkaline Phosphatase 87 Troponin I High Sens < 3 L Total Protein 8.2 Albumin 4.2 Globulin 4.0 Albumin/Globulin Ratio 1.0 Urine Color Urine Clarity Urine pH Ur Specific [place] Urine Protein Urine Glucose (UA) Urine Ketones Urine Occult Blood Urine Nitrite Urine Bilirubin Urine Urobilinogen Ur Leukocyte Esterase Urine RBC Urine WBC Ur Squamous Epith Cells Urine Bacteria Urine Mucus Ethyl Alcohol POC Glucose 134 H 09/14/21 09/14/21 13:15 14:10 WBC RBC Hgb Hct MCV MCH MCHC RDW Std Deviation RDW Coeff of David Plt Count MPV Immature Gran % (Auto) Neut % (Auto) Lymph % (Auto) Esmeralda % (Auto) Eos % (Auto) Baso % (Auto) Absolute Neuts (auto) Absolute Lymphs (auto) Nucleated RBC % Sodium Potassium Chloride Carbon Dioxide Anion Gap BUN Creatinine Estim Creat Clear Calc Est GFR (MDRD) Af Amer Est GFR (MDRD) Non-Af BUN/Creatinine Ratio Glucose Calcium Total Bilirubin AST ALT Alkaline Phosphatase Troponin I High Sens Total Protein Albumin Globulin Albumin/Globulin Ratio Urine Color Yellow Urine Clarity Sl. Cloudy Urine pH 6.0 Ur Specific [place] 1.020 Urine Protein 30 H Urine Glucose (UA) Normal Urine Ketones 50 H Urine Occult Blood Negative Urine Nitrite Negative Urine Bilirubin Negative Urine Urobilinogen Normal Ur Leukocyte Esterase 25 H Urine RBC 0 SEEN Urine WBC 0-5 SEEN Ur Squamous Epith Cells 5-10 SEEN Urine Bacteria 2+ Urine Mucus 0 SEEN Ethyl Alcohol < 3.0 POC Glucose Radiography Chest X-Ray - ED: 1 View, Heart, Lungs, Mediastinum, Bony Structures and No Acute Disease Diagnostic Testing: Clinical Impression(s) from Imaging Studies Brain CT 09/14/21 13:42 IMPRESSION: There are no acute intracranial findings. Electronically Signed: Ariel Serrano MD at 14:14 EDT , Chest X-Ray 09/14/21 14:00 IMPRESSION: There are no acute findings. Electronically Signed: Ariel Serrano MD at 14:13 EDT , Chest x-ray, portable, single view inter by myself and radiology shows no acute abnormality. Normal cardiac silhouette. Normal lung hess. CT brain no acute findings. Rhythm Strip Rhythm Strip: Sinus Rhythm Rate: 76 Ectopy: None EKG Initial EKG: Attestation: I personally reviewed and interpreted this EKG as follows: Interpretation: Sinus Rhythm and No Acute Injury Pattern Comments: Normal sinus rhythm rate of 76 no acute signs of OR, ischemia nor dysrhythmia. Discharge Plan Triage Chief Complaint: Confusion ED Provider: Simon Espinoza Dx/Rx/DC Orders Clinical Impression: Acute alteration in mental status, Acute confusion, History of hypertension Prescriptions: No Action lisinopril 40 MG tablet 40 mg PO DAILY RF: 0 lithium carbonate 300 MG tablet 300 mg PO TID RF: 0 clonazepam 1 MG tablet 0.5 mg PO TID RF: 0 hydroxyzine HCl 50 mg Tablet 50 mg PO 4X/DAY RF: 0 mirtazapine [Remeron] 15 mg Tablet 15 mg PO QHS RF: 0 hydrocodone-acetaminophen 1 TABLET tablet 1 tab PO Q6H PRN PRN (Reason: Pain) 3 Days Qty: 10 RF: 0 ondansetron 4 MG tablet 4 mg PO Q8H PRN PRN (Reason: Nausea) Qty: 10 RF: 0 dexamethasone 2 mg tablet 6 mg PO DAILY 6 Days Qty: 18 RF: 0 Primary Care Provider: Gerard García Referrals: Gerard García MD [Primary Care Provider] - Disposition Disposition: Acute Care [facility]
[2021-09-14 13:58] LABS: Absolute Lymphocyte Count 2.47 X10^3/uL (0.83-4.51); Absolute Neutrophil Count 4.2 X10^3/uL (2.0-7.7); Basophil# 0.04 X10^3/uL; Basophil% 0.6 % (0-1); Eosinophil# 0.07 X10^3/uL; Hematocrit 46.1 % (37-47); Hemoglobin 14.7 g/dL (12.0-15.0); Lymphocyte # 2.47 X10^3/ul (0.83-4.51); Lymphocyte % 34.4 % (19-41); Mean Corp Hgb Conc 31.9 g/dL (32-36); Mean Corpuscular Hgb 28.4 pg (27.0-32.0); Mean Corpuscular Volume 89.2 fL (81-99); Mean Platelet Vol. 9.5 fl (6.2-12.0); Monocyte# 0.39 X10^3/uL; Monocyte% 5.4 % (0-10); NRBC Flagged by Analyzer 0 % (0-5); Neutrophil # 4.19 X10^3/uL (2.7-7.7); Neutrophil % 58.5 % (47-70); Platelet Count 342 K/mm3 (150-450); RBC Distribution Width CV 13.2 % (11.6-14.6); RBC Distribution Width SD 43.3 fl (35.1-43.9); Red Blood Count 5.17 M/mm3 (4.2-5.4); White Blood Count 7.2 K/mm3 (4.4-11.0)
--- NOTE | 2021-09-14 14:00 | RAD_ITS ---
STUDY: X-RAY CHEST REASON FOR EXAM: Female, 56 years old. confused TECHNIQUE: XR Chest 1 View COMPARISON: 09.24.20 FINDINGS: There is no demonstrated pleural abnormality. Normal size heart. Normal mediastinum and carol. Normal visualized pulmonary arteries. Normal visualized aortic arch and descending thoracic aorta. Normal visualized thoracic spine. Normal visualized ribs, clavicles, and shoulders. There is no demonstrated abnormality of the visualized soft tissue structures of the upper abdomen. RAD/Chest 1 View (Portable) IMPRESSION: There are no acute findings. Electronically Signed: Ariel Serrano MD at 14:13 EDT ,
[2021-09-14 14:14] LABS: Mucous, Urine 0 SEEN /hpf (<or=2+); Red Blood Cells-Urine 0 SEEN /hpf (0-5)
[2021-09-14 14:15] LABS: Color, Urine Yellow (Yellow); Glucose, Dipstick Normal (Normal); Ketone-Dipstick 50 mg/dl (Negative); Leukocyte Esterase-Dipstick 25 /ul (Negative); Nitrite-Dipstick Negative (Negative); Occult Blood-Urine Negative /ul (Negative); Protein-Dipstick 30 mg/dl (Negative); Urine Bilirubin Dipstick Negative (Negative); Urine Clarity Sl. Cloudy (Clear); Urine Urobilinogen Normal (Normal)
[2021-09-14 14:18] LABS: AST(SGOT) 124 U/L (15-37); Alanine Aminotransfer ALT/SGPT 160 U/L (13-56); Albumin, Serum 4.2 g/dL (3.2-5.0); Alkaline Phosphatase 87 U/L (45-117); Anion Gap 6 (5-15); BUN 13 mg/dL (7-18); BUN/Creat Ratio 12.6 RATIO (10-20); Calcium,Total 9.7 mg/dL (8.5-10.1); Chloride 109 mmol/L (98-107); Creatinine, Serum 1.03 mg/dL (0.55-1.02); EST Glomerular Filtration Rate 59 mL/min (>60); Est Glom Filt Rate - Afr Amer 71 mL/min (>60); Estimated Creatinine Clearance 46.02 ml/min; Glucose 126 mg/dL (74-106); Potassium 4.2 mmol/L (3.5-5.1); Protein, Total 8.2 g/dL (6.4-8.2); Sodium Level 140 mmol/L (136-145); Troponin-I HS < 3 pg/mL (3.0-54.0)
[2021-09-14 14:19] LABS: Alcohol, Blood (Medical)-Serum < 3.0 mg/dL
[2021-09-14 14:22] LABS: Bacteria 2+ /hpf (None Seen); Squamous Epithelial Cells - UA 5-10 SEEN /hpf (5-10); White Blood Cells 0-5 SEEN /hpf (0-5)
--- NOTE | 2021-09-14 15:58 | HP.PCM.HOS_ITS ---
[facility] - General General Date of Service: 09/14/21 Chief Complaint: confusion. speech difficulty. HPI Narrative CYNTHIA RAZA, is a 56 F who presents with confusion. Patient had sent out a text yesterday was apparently wanted gibberish. Today, daughter called the p atient and she was speaking incoherently which is very unusual for her and brought the patient to the hospital. Patient was having ongoing confusion and word searching difficulty. Patient has had periods where she may get stuck on a word periodically but that is very seldom and that this is far more severe. There is no other neurologic concerns. Patient had a head CT in the emergency room that was unremarkable. Patient does have a history of bipolar disorder and she is on lithium and gets her levels checked periodically and they have all been good. Patient denies taking any more medications that she is allotted. PFSH Medical History Bipolar disorder Depression Hypertension Hypothyroidism Non-smoker Home Medications lisinopril 40 mg PO DAILY 06/14/13 [History Last Taken 12/11/14 40 MG] lithium carbonate 300 mg PO TID 06/18/14 [History Last Taken 12/11/14 300 MG] clonazepam 0.5 mg PO TID 08/19/14 [History Last Taken 12/11/14 1 MG] hydrocodone-acetaminophen 1 tab PO Q6H PRN PRN 3 Days #10 tablet 09/06/20 [Rx Last Taken Unknown] hydroxyzine HCl 50 mg PO 4X/DAY 09/06/20 [History Last Taken Unknown] mirtazapine [Remeron] 15 mg PO QHS 09/06/20 [History Last Taken Unknown] ondansetron 4 mg PO Q8H PRN PRN #10 tab 09/18/20 [Rx Last Taken Unknown] baclofen 10 mg PO BID 09/14/21 [History Last Taken 09/14/21] conj estrog-medroxyprogest cy [Prempro] 1 tab PO QHS 09/14/21 [History Last Taken 09/13/21] ergocalciferol (vitamin D2) [Vitamin D2] 50,000 unit PO TU 09/14/21 [History Last Taken 09/11/21] Allergy/AdvReac Type Severity Reaction Status Date / Time cyclobenzaprine HCl Allergy Other Verified 09/21/20 11:08 [From Flexeril] ketorolac tromethamine AdvReac Other Verified 09/21/20 11:08 [From Toradol] morphine AdvReac Other Verified 09/21/20 11:08 orphenadrine citrate AdvReac Other Verified 09/21/20 11:08 [From Norflex] prochlorperazine edisylate AdvReac Upset Verified 09/21/20 11:08 [From Compazine] Stomach prochlorperazine maleate AdvReac Upset Verified 09/21/20 11:08 [From Compazine] Stomach promethazine HCl AdvReac Upset Verified 09/21/20 11:08 [From Phenergan] Stomach tramadol AdvReac Other Verified 09/21/20 11:08 Surgical History History of appendectomy S/P ACL surgery Social History Smoking Status: Never smoker ROS ROS Narrative All review of systems were negative except as mentioned above in the history of present illness and the other review of systems. Vital Signs Vital Signs Vital Signs: 09/14/21 13:01 09/14/21 14:09 09/14/21 15:04 Temperature 36.1 C L Temperature Source Temporal Pulse Rate 92 81 69 Respiratory Rate 18 20 H 14 Blood Pressure 154/86 H 126/71 H 125/76 H Blood Pressure Mean 108 89 92 Pulse Ox 96 96 95 Oxygen Delivery Method Room Air Room Air Room Air Weight Weight: 110.132 kg Body Mass Index (BMI) 45.8 Physical Exam Const alert and no apparent distress Constitutional Narrative: Speech is coherent though slightly slurred. Follows commands for the most part but does get confused with laterality at times. General Appearance: cooperative HEENT normocephalic and head/scalp atraumatic Eyes PERRL and EOMs intact bilaterally Eyes Narrative: Bilateral nystagmus Resp normal respiratory effort, no retractions, no use of accessory muscles and clear to auscultation bilaterally Extremity normal to inspection and no clubbing, cyanosis or edema Skin no rashes or lesions noted and no wounds Neuro CN's II-XII intact bilaterally and no focal motor deficits Sensorium / Orientation: awake Coordination / Balance: [id number] test normal and [id number] test normal Motor Exam: strength 5/5 throughout Psych affect normal Results Lab / Micro Data Attestation: I reviewed the patient's lab results. Result Diagrams: 09/14/21 13:15 09/14/21 13:15 Labs: Laboratory Results - last 24 hr 09/14/21 13:14: POC Glucose 134 H 09/14/21 13:15: WBC 7.2, RBC 5.17, Hgb 14.7, Hct 46.1, MCV 89.2, MCH 28.4, MCHC 31.9 L, RDW Std Deviation 43.3, RDW Coeff of David 13.2, Plt Count 342, MPV 9.5, Immature Gran % (Auto) 0.100, Neut % (Auto) 58.5, Lymph % (Auto) 34.4, [place] % (Auto) 5.4, Eos % (Auto) 1.0, Baso % (Auto) 0.6, Absolute Neuts (auto) 4.2, Ab solute Lymphs (auto) 2.47, Nucleated RBC % 0 09/14/21 13:15: Sodium 140, Potassium 4.2, Chloride 109 H, Carbon Dioxide 25.0, Anion Gap 6, BUN 13, Creatinine 1.03 H, Estim Creat Clear Calc 46.02, Est GFR (MDRD) Af Amer 71, Est GFR (MDRD) Non-Af 59 L, BUN/Creatinine Ratio 12.6, Glucose 126 H, Calcium 9.7, Total Bilirubin 0.50, AST 124 H, ALT 160 H, Alkaline Phosphatase 87, Troponin I High Sens < 3 L, Total Protein 8.2, Albumin 4.2, Globulin 4.0, Albumin/Globulin Ratio 1.0 09/14/21 13:15: Ethyl Alcohol < 3.0 09/14/21 14:10: Urine Color Yellow, Urine Clarity Sl. Cloudy, Urine pH 6.0, Ur Specific [place] 1.020, Urine Protein 30 H, Urine Glucose (UA) Normal, Urine Ketones 50 H, Urine Occult Blood Negative, Urine Nitrite Negative, Urine Bilirubin Negative, Urine Urobilinogen Normal, Ur Leukocyte Esterase 25 H, Urine RBC 0 SEEN, Urine WBC 0-5 SEEN, Ur Squamous Epith Cells 5-10 SEEN, Urine Bacteri a 2+, Urine Mucus 0 SEEN Rhythm Strip Rhythm Strip: Sinus Rhythm Rate: 76 Ectopy: None EKG Initial EKG: Attestation: I personally reviewed and interpreted this EKG as follows: Prior EKG tracings: available for review EKG Rhythm Intrepretation: Sinus Rhythm Radiology Impression Brain CT 09/14/21 13:42 IMPRESSION: There are no acute intracranial findings. Electronically Signed: Ariel Serrano MD at 14:14 EDT , Chest X-Ray 09/14/21 14:00 IMPRESSION: There are no acute findings. Electronically Signed: Ariel Serrano MD at 14:13 EDT , Assessment & Plan Assessment/Plan (1) Dysarthria: PLAN: 1. Dysarthria * Differential diagnoses include stroke or lithium toxicity * [place] level has been ordered but the results are pending * Will order a stroke work-up with MRI of the brain, MRA of the head and neck, 2D echocardiogram. If the lithium level is elevated to toxic range then I think that would be the etiology of her confusion and then we can discontinue these tests. If the test is normal or slightly elevated may not be definitive that the patient is having lithium toxicity and it may be worthwhile to rule out stroke 2. Bipolar disorder * Patient has had a bipolar for a long time and has been on lithium for years. Likely since she has been stable and her levels been stable there is been no impetus to change her medications. That may change if she is toxic, however.. * In the meantime, will hold the lithium. 3. VTE prophylaxis not indicated at this time given observation status Charges/Coding Visit Charges OBSV E&M: 16090 Initial observation care L3
--- NOTE | 2021-09-14 16:20 | MRI_ITS ---
EXAM: MR ANGIOGRAPHY HEAD WITHOUT INTRAVENOUS CONTRAST CLINICAL INDICATION: dysarthria, CONFUSION, WORD FINDING DIFFICULTY TECHNIQUE: Routine minto of [place]/brain 3D time of flight MR angiogram protocol was performed without intravenous contrast. This report was created using [employer] report [employer] technology. COMPARISON: purvi t head Amrik 2021 1:56pm FINDINGS: RIGHT INTERNAL CAROTID ARTERY: No acute findings. No significant stenosis at the intracranial/visualized segments. No aneurysm. RIGHT ANTERIOR CEREBRAL ARTERY: Unremarkable. No significant stenosis at the visualized segments. Anterior communicating artery is present. No aneurysm. RIGHT MIDDLE CEREBRAL ARTERY: Unremarkable. No significant stenosis at the visualized segments. No aneurysm. RIGHT POSTERIOR CEREBRAL ARTERY: Unremarkable. No significant stenosis at the visualized segments. No aneurysm. RIGHT VERTEBRAL ARTERY: Unremarkable as visualized. No significant stenosis at the intradural/visualized segments. No aneurysm. LEFT INTERNAL CAROTID ARTERY: No acute findings. No significant stenosis at the intracranial/visualized segments. No aneurysm. LEFT ANTERIOR CEREBRAL ARTERY: Unremarkable. No significant stenosis at the visualized segments. Anterior communicating artery is present. No aneurysm. LEFT MIDDLE CEREBRAL ARTERY: Unremarkable. No significant stenosis at the visualized segments. No aneurysm. LEFT POSTERIOR CEREBRAL ARTERY: Unremarkable. No significant stenosis at the visualized segments. No aneurysm. LEFT VERTEBRAL ARTERY: Unremarkable as visualized. No significant stenosis at the intradural/visualized segments. No aneurysm. BASILAR ARTERY: Unremarkable. No significant stenosis. No aneurysm. OTHER VASCULATURE: No vascular malformation. MRI/MRA Head ONLY without Contrast IMPRESSION: Unremarkable MRA head. ALL ABOVE CRITERIA BY NASCET. Impression. Electronically Signed: Ariel Serrano MD at 19:32 EDT ,
--- NOTE | 2021-09-14 16:20 | MRI_ITS ---
EXAM: MR ANGIOGRAPHY NECK WITHOUT INTRAVENOUS CONTRAST CLINICAL INDICATION: dysarthria, CONFUSION, WORD FINDING DIFFICULTY TECHNIQUE: Routine carotid MR angiogram protocol was performed without intravenous contrast. 3D reconstructions were reviewed. Nascet criteria using the distal ICAs for comparison were used for evaluation of stenoses. This report was created using [employer] report [employer] technology. COMPARISON: None. FINDINGS: RIGHT COMMON CAROTID ARTERY: Unremarkable. No occlusion or significant stenosis. No dissection. RIGHT INTERNAL CAROTID ARTERY: Unremarkable. Extracranial segment is patent with no occlusion or significant stenosis. No dissection. RIGHT EXTERNAL CAROTID ARTERY: Unremarkable. No occlusion. RIGHT VERTEBRAL ARTERY: Unremarkable. No occlusion or significant stenosis. No dissection. LEFT COMMON CAROTID ARTERY: Unremarkable. No occlusion or significant stenosis. No dissection. LEFT INTERNAL CAROTID ARTERY: There are no acute findings of the right and left internal carotid artery. ALL ABOVE CRITERIA BY NASCET. Extracranial segment is patent with no occlusion or significant stenosis. No dissection. LEFT EXTERNAL CAROTID ARTERY: Unremarkable. No occlusion. LEFT VERTEBRAL ARTERY: Unremarkable. No occlusion or significant stenosis. No dissection. GREAT VESSELS OF AORTIC ARCH: Unremarkable. No significant stenosis. CAROTID STENOSIS REFERENCE USING NASCET CRITERIA: % ICA stenosis = (1 - narrowest ICA diameter/diameter of distal cervical ICA) x 100. Mild - <50% stenosis. Moderate - 50-69% stenosis. Severe - 70-94% stenosis. Near occlusion - 95-99% stenosis. Occluded - 100% stenosis. MRI/MRA Neck without Contrast IMPRESSION: There are no acute findings of the right and left internal carotid artery. ALL ABOVE CRITERIA BY NASCET. Electronically Signed: Ariel Serrano MD at 19:32 EDT ,
--- NOTE | 2021-09-14 16:20 | MRI_ITS ---
STUDY: MRI BRAIN WITHOUT CONTRAST REASON FOR EXAM: Female, 56 years old. Dysarthria, CONFUSION, WORD FINDING DIFFICULTY TECHNIQUE: Standardized multiplanar fat and water weighted pulse sequences were obtained. Multiplanar multiecho noncontrast imaging obtained. COMPARISON: CT examination of the head on 09/14/2021 FINDINGS: Normal size of the ventricles and extra-axial spaces for the patient''s age. Normal white matter tracts of the supratentorial brain. Normal bilateral basal ganglia. Normal thalami. There is no extra-axial fluid accumulation. Normal flow voids within the major intracranial circulation suggesting patency by spin echo criteria. Normal sella turcica, pituitary gland, infundibular stalk, optic chiasm and hypothalamus. Normal tectal plate and pineal gland. Normal midbrain, mariella and medulla. Normal cerebellum. Normal basal cisterns. Normal bilateral temporal bones. Normal of the visualized internal auditory canals. No demonstrated orbital abnormality, within the constraints of a routine brain study. Normal visualized paranasal sinuses. Normal calvarium and skull base. Normal visualized soft tissue structures. Normal visualized upper cervical spine. MRI/Brain without Contrast IMPRESSION: 1. Normal unenhanced MRI of the brain. 2. No intraparenchymal mass, hemorrhage, or acute territorial infarct. 3. No radiographically significant sinus disease. Electronically Signed: Philippe Funk MD at 21:02 EDT ,
--- NOTE | 2021-09-14 16:20 | ECHOD_ITS ---
Reason For Study: TIA/CVA Procedure This was a 2D Doppler, Color Flow transthoracic echocardiogram. Bubble study performed. Exam performed portable in patient room. Left Ventricle Normal left ventricle. The estimated ejection fraction is 55-60 %. Right Ventricle Normal right ventricle. Normal systolic function. Atria Normal left atrium. Normal right atrium. Bubble contrast study negative for right to left interatrial shunt. Mitral Valve The mitral valve is structurally normal. No prolapse or stenosis seen. Trivial mitral valve insufficiency. Tricuspid Valve Normal tricuspid valve. Mild tricuspid valve insufficiency. Aortic Valve Normal aortic valve. No aortic valve insufficiency. Pulmonic Valve The pulmonic valve is not well visualized. Great Vessels Normal aortic root. Pericardium/Pleural No pericardial effusion. Medication Performed a rapid injection of agitated mix of 9 cc saline and 1cc air to assess for atrial septal defect. MMode/2D Measurements & Calculations LVIDd: 3.8 cm IVSd: 1.2 cm Ao root diam: 3.2 cm LVIDs: 2.6 cm LVPWd: 1.2 cm LA dimension: 4.1 cm RVDd: 3.8 cm FS: 33.4 % LAV(MOD-bp): 59.6 ml LA A4 area: 21.9 cm2 RA A4 area: 17.5 cm2 LAV(MOD-bp) Indexed: 29.0 ml/m2 LAV(MOD-sp2): 51.8 ml LAV(MOD-sp4): 69.0 ml Time Measurements MV dec time: 0.24 sec Doppler Measurements & Calculations MV E max wiley: 85.7 cm/sec Lat Peak E' Wiley: 13.0 cm/sec Med Peak E' Wiley: 9.4 cm/sec MV A max wiley: 110.0 cm/sec E/E' lat: 6.6 E/E' med: 9.2 MV E/A: 0.78 MV V2 max: 113.6 cm/sec MV P1/2t max wiley: 95.3 cm/sec Ao V2 max: 162.8 cm/sec MV max P.2 mmHg MV P1/2t: 100.7 msec Ao max P.6 mmHg MV V2 mean: 73.1 cm/sec MV dec slope: 277.4 cm/sec2 MV mean P.4 mmHg MV V2 VTI: 31.5 cm MVA(P1/2t): 2.2 cm2 LV V1 max: 144.6 cm/sec PA V2 max: 105.9 cm/sec TR max wiley: 292.3 cm/sec LV V1 max P.4 mmHg TR max P.2 mmHg ECHO/Echo Complete Interpretation Summary The estimated ejection fraction is 55-60 %. Normal LV systolic function Ordering Physician: Gabriel Ovalle Referring Physician: Gerard García Performed By: Cameron Valencia RCS
[2021-09-14 17:56] LABS: Troponin-I HS < 3 pg/mL (3.0-54.0)
[2021-09-14] MEDS: Acetaminophen 325 MG Tablet 650 MG PO (19:55)
[2021-09-14] MEDS: Lisinopril 40 MG Tablet PO (20:50)
[2021-09-15 02:33] VITALS: BP 122/62; PULSE 63; RESP 18; TEMP 36.5; O2SAT 96
[2021-09-15] MEDS: 0.9% Saline Lock 10 ML Syringe IV (02:36)
[2021-09-15 02:59] VITALS: PULSE 62
[2021-09-15 05:22] VITALS: BP 117/59; PULSE 65; RESP 18; TEMP 37.5; O2SAT 97
[2021-09-15 06:45] LABS: Anion Gap 3 (5-15); BUN 12 mg/dL (7-18); BUN/Creat Ratio 14.8 RATIO (10-20); Calcium,Total 9.5 mg/dL (8.5-10.1); Chloride 109 mmol/L (98-107); Cholesterol 194 mg/dL (200); Creatinine, Serum 0.81 mg/dL (0.55-1.02); EST Glomerular Filtration Rate 78 mL/min (>60); Est Glom Filt Rate - Afr Amer 94 mL/min (>60); Estimated Creatinine Clearance 61.34 ml/min; Glucose 102 mg/dL (74-106); High Density Lipoprotein 45 mg/dL; Potassium 4.3 mmol/L (3.5-5.1); Sodium Level 139 mmol/L (136-145); Triglycerides 118 mg/dL; Very Low Density Lipoprotein 24 mg/dL (5-40)
[2021-09-15 07:04] VITALS: PULSE 65
--- NOTE | 2021-09-15 08:50 | PCM.PN.HOSP ---
Subjective Subjective Feels better. Notes that she did actually take 2 baclofen. Patient was feeling sore after cleaning her mother's house and she decided to take 2 baclofen instead of 1. Patient's son is at bedside and patient apparently has had issues but less severe before potentially with baclofen in the past. Objective Data Objective Data Vital Signs: Vital Signs Temp Pulse Resp BP Pulse Ox 37.5 C H 65 18 117/59 L 97 09/15/21 05:22 09/15/21 07:04 09/15/21 05:22 09/15/21 05:22 09/15/21 05:22 Oxygen Delivery Method Room Air Weight: 110.949 kg Body Mass Index (BMI) 44.7 Intake & Output: Intake and Output for Last 24 Hours 09/13/21 09/14/21 09/15/21 23:59 23:59 23:59 Intake Total 120 / 120 50 / 50 Balance 120 / 120 50 / 50 Lab / Micro Data Result Diagrams: 09/14/21 13:15 09/15/21 05:41 Labs: Laboratory Results - last 24 hr 09/14/21 13:14: POC Glucose 134 H 09/14/21 13:15: WBC 7.2, RBC 5.17, Hgb 14.7, Hct 46.1, MCV 89.2, MCH 28.4, MCHC 31.9 L, RDW Std Deviation 43.3, RDW Coeff of David 13.2, Plt Count 342, MPV 9.5, Immature Gran % (Auto) 0.100, Neut % (Auto) 58.5, Lymph % (Auto) 34.4, [place] % (Auto) 5.4, Eos % (Auto) 1.0, Baso % (Auto) 0.6, Absolute Neuts (auto) 4.2, Absolute Lymphs (auto) 2.47, Nucleated RBC % 0 09/14/21 13:15: Sodium 140, Potassium 4.2, Chloride 109 H, Carbon Dioxide 25.0, Anion Gap 6, BUN 13, Creatinine 1.03 H, Estim Creat Clear Calc 46.02, Est GFR (MDRD) Af Amer 71, Est GFR (MDRD) Non-Af 59 L, BUN/Creatinine Ratio 12.6, Glucose 126 H, Calcium 9.7, Total Bilirubin 0.50, AST 124 H, ALT 160 H, Alkaline Phosphatase 87, Troponin I High Sens < 3 L, Total Protein 8.2, Albumin 4.2, Globulin 4.0, Albumin/Globulin Ratio 1.0 09/14/21 13:15: Ethyl Alcohol < 3.0 09/14/21 13:15: [place] 0.80 09/14/21 14:10: Urine Color Yellow, Urine Clarity Sl. Cloudy, Urine pH 6.0, Ur Specific [place] 1.020, Urine Protein 30 H, Urine Glucose (UA) Normal, Urine Ketones 50 H, Urine Occult Blood Negative, Urine Nitrite Negative, Urine Bilirubin Negative, Urine Urobilinogen Normal, Ur Leukocyte Esterase 25 H, Urine RBC 0 SEEN, Urine WBC 0-5 SEEN, Ur Squamous Epith Cells 5-10 SEEN, Urine Bacteria 2+, Urine Mucus 0 SEEN 09/14/21 16:51: Troponin I High Sens < 3 L 09/15/21 05:41: Sodium 139, Potassium 4.3, Chloride 109 H, Carbon Dioxide 27.0, Anion Gap 3 L, BUN 12, Creatinine 0.81, Estim Creat Clear Calc 61.34, Est GFR (MDRD) Af Amer 94, Est GFR (MDRD) Non-Af 78, BUN/Creatinine Ratio 14.8, Glucose 102, Calcium 9.5, Triglycerides 118, Cholesterol 194, LDL Cholesterol 125, VLDL Cholesterol 24, HDL Cholesterol 45 Radiography Diagnostic Testing: Radiology Impression Brain CT 09/14/21 13:42 IMPRESSION: There are no acute intracranial findings. Electronically Signed: Ariel Serrano MD at 14:14 EDT , Chest X-Ray 09/14/21 14:00 IMPRESSION: There are no acute findings. Electronically Signed: Ariel Serrano MD at 14:13 EDT , Brain MRI 09/14/21 16:20 IMPRESSION: 1. Normal unenhanced MRI of the brain. 2. No intraparenchymal mass, hemorrhage, or acute territorial infarct. 3. No radiographically significant sinus disease. Electronically Signed: Philippe Funk MD at 21:02 EDT , Head MRA 09/14/21 16:20 IMPRESSION: Unremarkable MRA head. ALL ABOVE CRITERIA BY NASCET. Impression. Electronically Signed: Ariel Serrano MD at 19:32 EDT , Neck MRA 09/14/21 16:20 IMPRESSION: There are no acute findings of the right and left internal carotid artery. ALL ABOVE CRITERIA BY NASCET. Electronically Signed: Ariel Serrano MD at 19:32 EDT , Rhythm Strip Rhythm Strip: Sinus Rhythm Rate: 76 Ectopy: None Physical Exam Const alert and no apparent distress HEENT head/scalp atraumatic HEENT Narrative: Nystagmus improved Head and Scalp: normocephalic Assessment & Plan Assessment/Plan (1) Dysarthria: PLAN: 1. Dysarthria Secondary to baclofen toxicity MRI is negative for stroke [place] level was within normal limits I have advised the patient to discontinue the baclofen altogether. 2. Bipolar disorder Patient has had a bipolar for a long time and has been on lithium for years. Likely since she has been stable and her levels been stable there is been no impetus to change her medications. That may change if she is toxic, however.. In the meantime, will hold the lithium. 3. VTE prophylaxis not indicated at this time given observation status
[2021-09-15 09:01] VITALS: BP 112/68; PULSE 75; RESP 18; TEMP 35.9; O2SAT 94
[2021-09-15] MEDS: clonazePAM 0.5 MG Tablet PO (09:05)
[2021-09-15] MEDS: Aspirin 81 MG TAB.CHEW PO (09:05)
--- NOTE | 2021-09-15 10:22 | DS.PCM_ITS ---
Providers Date of Admission: 09/14/21 Primary Care Physician: Dr. Gerard García MD Reason For Visit: CONFUSION Diagnosis Discharge Diagnosis (1) Dysarthria: Status: Acute Code(s): R47.1 - Dysarthria and anarthria Medications at Discharge Home Medications lisinopril 40 mg PO QHS 06/14/13 lithium carbonate 300 mg PO TID 06/18/14 clonazepam 0.5 mg PO TID PRN PRN 08/19/14 hydroxyzine HCl 50 - 100 mg PO TID PRN PRN 09/06/20 mirtazapine [Remeron] 15 mg PO QHS PRN PRN 09/06/20 ondansetron 4 mg PO Q8H PRN PRN #10 tab 09/18/20 Prempro 1 tab PO QHS 09/14/21 ergocalciferol (vitamin D2) [Vitamin D2] 50,000 unit PO TU 09/14/21 Hospital Course Operations None Procedures 2-D Echocardiogram Summary of Care Provided Minutes Spent on Discharge: 26 Hospital Course: This is a 56-year-old female presents with confusion. Patient was slurring was words and speaking incoherently. Initial concern was patient having lithium toxicity, however her level was normal. Patient does have bipolar disorder and does take lithium. Patient underwent MRI of her brain to evaluate for stroke and that was negative as well. In the interim, I held much of her potentiating medications. Today, the patient is feeling much more alert and was able to tell me that she intentionally took 2 baclofen instead of 1 because she was having aches due to cleaning her mother's house. I feel that this is baclofen toxicity. Patient's son is present at her bedside and states that she has had issues before with baclofen but not to this extreme. I have advised the patient to completely discontinue baclofen moving forward. Patient expressed understanding. I told her if she is having pain that she can take acetaminophen. Weight / BMI Weight Weight: 110.949 kg Body Mass Index (BMI) 44.7 ABG / Lab / Microbiology Data Result Diagrams: 09/14/21 13:15 09/15/21 05:41 Laboratory: Laboratory Results - last 24 hr 09/14/21 13:14: POC Glucose 134 H 09/14/21 13:15: WBC 7.2, RBC 5.17, Hgb 14.7, Hct 46.1, MCV 89.2, MCH 28.4, MCHC 31.9 L, RDW Std Deviation 43.3, RDW Coeff of David 13.2, Plt Count 342, MPV 9.5, Immature Gran % (Auto) 0.100, Neut % (Auto) 58.5, Lymph % (Auto) 34.4, [place] % (Auto) 5.4, Eos % (Auto) 1.0, Baso % (Auto) 0.6, Absolute Neuts (auto) 4.2, Absolute Lymphs (auto) 2.47, Nucleated RBC % 0 09/14/21 13:15: Sodium 140, Potassium 4.2, Chloride 109 H, Carbon Dioxide 25.0, Anion Gap 6, BUN 13, Creatinine 1.03 H, Estim Creat Clear Calc 46.02, Est GFR (MDRD) Af Amer 71, Est GFR (MDRD) Non-Af 59 L, BUN/Creatinine Ratio 12.6, Glucose 126 H, Calcium 9.7, Total Bilirubin 0.50, AST 124 H, ALT 160 H, Alkaline Phosphatase 87, Troponin I High Sens < 3 L, Total Protein 8.2, Albumin 4.2, Globulin 4.0, Albumin/Globulin Ratio 1.0 09/14/21 13:15: Ethyl Alcohol < 3.0 09/14/21 13:15: [place] 0.80 09/14/21 14:10: Urine Color Yellow, Urine Clarity Sl. Cloudy, Urine pH 6.0, Ur Specific [place] 1.020, Urine Protein 30 H, Urine Glucose (UA) Normal, Urine Ketones 50 H, Urine Occult Blood Negative, Urine Nitrite Negative, Urine Bilirubin Negative, Urine Urobilinogen Normal, Ur Leukocyte Esterase 25 H, Urine RBC 0 SEEN, Urine WBC 0-5 SEEN, Ur Squamous Epith Cells 5-10 SEEN, Urine B acteria 2+, Urine Mucus 0 SEEN 09/14/21 16:51: Troponin I High Sens < 3 L 09/15/21 05:41: Sodium 139, Potassium 4.3, Chloride 109 H, Carbon Dioxide 27.0, Anion Gap 3 L, BUN 12, Creatinine 0.81, Estim Creat Clear Calc 61.34, Est GFR (MDRD) Af Amer 94, Est GFR (MDRD) Non-Af 78, BUN/Creatinine Ratio 14.8, Glucose 102, Calcium 9.5, Triglycerides 118, Cholesterol 194, LDL Cholesterol 125, VLDL Cholesterol 24, HDL Cholesterol 45 Radiography Diagnostic Testing: Radiology Impression Brain CT 09/14/21 13:42 IMPRESSION: There are no acute intracranial findings. Electronically Signed: Ariel Serrano MD at 14:14 EDT , Chest X-Ray 09/14/21 14:00 IMPRESSION: There are no acute findings. Electronically Signed: Ariel Serrano MD at 14:13 EDT , Brain MRI 09/14/21 16:20 IMPRESSION: 1. Normal unenhanced MRI of the brain. 2. No intraparenchymal mass, hemorrhage, or acute territorial infarct. 3. No radiographically significant sinus disease. Electronically Signed: Philippe Funk MD at 21:02 EDT , Echocardiogram 09/14/21 16:20 Interpretation Summary The estimated ejection fraction is 55-60 %. Normal LV systolic function Ordering Physician: Gabriel Ovalle Referring Physician: Gerard García Performed By: Cameron Valencia RCS Head MRA 09/14/21 16:20 IMPRESSION: Unremarkable MRA head. ALL ABOVE CRITERIA BY NASCET. Impression. Electronically Signed: Ariel Serrano MD at 19:32 EDT , Neck MRA 09/14/21 16:20 IMPRESSION: There are no acute findings of the right and left internal carotid artery. ALL ABOVE CRITERIA BY NASCET. Electronically Signed: Ariel Serrano MD at 19:32 EDT , D/C Instructions Discharge Diet: No restrictions Meaningful Use Info Meaningful Use Diagnoses (Choose all that apply): None applicable Discharge Plan Admission Admit Date/Time: 09/14/21 15:53 Primary Reason for Your Visit: Baclofen toxicity Attending Provider: Gabriel Ovalle Primary Care Provider: Gerard García Discharge Orders/Prescriptions Prescriptions: Continued lisinopril 40 MG tablet 40 mg PO QHS RF: 0 lithium carbonate 300 MG tablet 300 mg PO TID RF: 0 clonazepam 1 MG tablet 0.5 mg PO TID PRN PRN (Reason: Anxiety) RF: 0 hydroxyzine HCl 50 mg Tablet 50 - 100 mg PO TID PRN PRN (Reason: Anxiety) RF: 0 mirtazapine [Remeron] 15 mg Tablet 15 mg PO QHS PRN PRN (Reason: Sleep) RF: 0 ondansetron 4 MG tablet 4 mg PO Q8H PRN PRN (Reason: Nausea) Qty: 10 RF: 0 ergocalciferol (vitamin D2) [Vitamin D2] 1,250 mcg (50,000 unit) capsule 50,000 unit PO TU RF: 0 Prempro 0.3-1.5 mg tablet 1 tab PO QHS RF: 0 Discontinued hydrocodone-acetaminophen 1 TABLET tablet 1 tab PO Q6H PRN PRN (Reason: Pain) 3 Days Qty: 10 RF: 0 baclofen 10 mg tablet 10 mg PO BID RF: 0 Referrals / Follow Up: Gerard García MD [Primary Care Provider] - Within 2 Weeks Disposition Disposition (needs filled in before D/C Order can be placed): Home, Self Care Charges/Coding Visit Charges OBSV E&M: 64903 Observation care discharge
== END 2021-09-15 10:22 | disposition home or self-care (01) ==
LOC: ED 15:36 → PCU 15:59
PROVIDERS: Emergency Provider Emergency Medicine; PCP Family Medicine
DX: T42.8X1A Poisoning by antiparkinsonism drugs and other central muscle-tone depressants, accidental (unintentional), initial encounter (principal); F31.9 Bipolar disorder, unspecified; R47.1 Dysarthria and anarthria; I10 Essential (primary) hypertension; Z79.899 Other long term (current) drug therapy; R47.81 Slurred speech
CPT/HCPCS: 36415; 70450; 70544; 70547; 70551; 71045; 80048; 80053; 80061; 80178; 81001; 82077; 82962; 84484; 85025; 92523; 93005; 93306; 94762; 99218; 99285; Q9957; A4216; G0378

== ENCOUNTER → 2021-10-30 | Outpatient (CLI) | payer MEDICARE, MEDICAID, SELFPAY ==
[2021-10-30 13:52] LABS: Creatinine, Serum 0.94 mg/dL (0.55-1.02); EST Glomerular Filtration Rate 65 mL/min (>60); Est Glom Filt Rate - Afr Amer 79 mL/min (>60); Thyroid Stim Hormone (TSH) 1.12 uIU/mL (0.358-3.74)
== END | disposition home or self-care (01) ==
PROVIDERS: PCP Family Medicine; Referring Provider Psychiatry & Neurology Psychiatry; Visit Provider Psychiatry & Neurology Psychiatry
DX: Z79.899 Other long term (current) drug therapy (principal)
CPT/HCPCS: 36415; 80178; 82565; 84443

== ENCOUNTER 2022-06-10 16:52 | Emergency (ER) | payer MEDICARE, MEDICAID, SELFPAY ==
[2022-06-10 16:53] VITALS: BP 132/80; PULSE 86; RESP 14; TEMP 37.4; O2SAT 96; BMI 41.2
--- NOTE | 2022-06-10 17:31 | ED.RN ---
PT STATES I AM GOING TO LEAVE AND COME BACK TOMORROW DURING THE DAY.
== END 2022-06-10 17:30 | disposition left against medical advice (07) ==
LOC: ED 17:38
PROVIDERS: PCP Family Medicine
DX: E86.0 Dehydration (principal)

== ENCOUNTER 2022-06-11 13:36 | Emergency (ER) | payer MEDICARE, MEDICAID, SELFPAY ==
[2022-06-11 13:36] VITALS: BP 134/74; PULSE 77; RESP 18; TEMP 36.3; O2SAT 99; BMI 41.3
--- NOTE | 2022-06-11 14:24 | EDS_ITS ---
HPI HPI - GI History of Present Illness Chief Complaint: Abd Pain Narrative Narrative: 56-year-old female past medical history of depression and anxiety, hypertension, presents with 3 weeks of abdominal pain and diarrhea. She states she has had multiple episodes of loose stool and diarrhea that just will not stop.. She states that she has been worked up by her primary care provider with a CT scan and fecal studies, but he cannot find what is wrong. She complains of nonlocalized abdominal pain. She went to go see her sister in [place] today, and over the last 2 hours, it is gotten worse. When she arrived there, she had crampy diffuse abdominal pain, and decided to drive home. Instead, she wanted to come to [facility] to figure out what is going on with her abdominal pain and her diarrhea. She denies any fevers or chills. She may have had slight nausea but no vomiting. She denies any exacerbating or alleviating factors. PFSH PFSH Medical History Acute myofascial strain of lumbosacral region Acute myofascial strain of lumbosacral region Benign essential hypertension Bipolar disorder Chronic pain COVID-19 Dehydration, mild Delirium due to another medical condition Depression History of anxiety History of chest pain History of depression History of hypertension Hypertension Hypothyroidism Hypoxia Non-smoker Home Medications lisinopril 40 mg tablet 40 mg PO QHS blood pressure 06/14/13 [History Last Taken 09/13/21] lithium carbonate 300 mg tablet,extended release 300 mg PO TID mental health 06/18/14 [History Last Taken 09/13/21] clonazepam 1 mg tablet 0.5 mg PO TID PRN PRN Anxiety 08/19/14 [History Last Taken 09/14/21] hydroxyzine HCl 50 mg tablet 50 - 100 mg PO TID PRN PRN Anxiety 09/06/20 [History Last Taken 09/14/21] ondansetron 4 mg disintegrating tablet 4 mg PO Q8H PRN PRN Nausea #10 tabs 09/18/20 [Rx Last Taken Unknown] conj estrogen-medroxyprogesterone 0.3 mg-1.5 mg tablet (Prempro) 1 tab PO QHS . 09/14/21 [History Last Taken 09/13/21] ergocalciferol (vitamin D2) 1,250 mcg (50,000 unit) capsule (Vitamin D2) 50,000 unit PO TU supplement 09/14/21 [History Last Taken 09/11/21] dicyclomine 20 mg tablet 20 mg PO TID PRN abdominal cramping #20 tabs 06/11/22 [Rx Last Taken Unknown] Allergy/AdvReac Type Severity Reaction Status Date / Time cyclobenzaprine HCl Allergy Other Verified 06/11/22 13:38 [From Flexeril] ketorolac tromethamine AdvReac Other Verified 06/11/22 13:38 [From Toradol] mirtazapine AdvReac Other Verified 06/11/22 13:38 morphine AdvReac Other Verified 06/11/22 13:38 orphenadrine citrate AdvReac Other Verified 06/11/22 13:38 [From Norflex] prochlorperazine edisylate AdvReac Upset Verified 06/11/22 13:38 [From Compazine] Stomach prochlorperazine maleate AdvReac Upset Verified 06/11/22 13:38 [From Compazine] Stomach promethazine HCl AdvReac Upset Verified 06/11/22 13:38 [From Phenergan] Stomach tramadol AdvReac Other Verified 06/11/22 13:38 Surgical History History of appendectomy S/P ACL surgery Social History Smoking Status: Never smoker ROS ROS ED ROS Narrative Constitutional: No fever, no chills. HEENT: No sore throat. No neck pain. No loss of vision. No rhinorrhea. Cardiovascular: No chest pain. No palpitations. No pedal edema. Respiratory: No cough, no shortness of breath. Abdominal: Diffuse, nonlocalized abdominal pain. Slight nausea. No vomiting. Multiple episodes of nonbloody diarrhea. Genitourinary: No dysuria. No hematuria. Musculoskeletal: No myalgias. No arthralgias. Neurologic: No headaches. No dizziness. No lightheadedness. Skin: No rash. No change in color. Psychiatric: No depression. No anxiety. EXAM Physical Exam Narrative Exam Narrative: Afebrile. Vital signs noted. HEENT: Normocephalic. Atraumatic. PERRL, EOMI. Neck soft and supple. No point tenderness or step off. Cardiovascular: Regular rate and rhythm. No murmurs, rubs, or gallops appreciated. Respiratory: No tachypnea. Lungs clear to auscultation bilaterally. Gastrointestinal: Abdomen soft, nontender, with normoactive bowel sounds. No rebound or guarding. Neurological: Awake. Alert. Nonfocal, nonlateralizing. Skin: No rash. Normal color. No pallor. Musculoskeletal: No pedal edema. Full range of motion extremities. Const Vital Signs: 06/11/22 13:36 Temperature 97.4 F L Temperature Source Temporal Pulse Rate 77 Respiratory Rate 18 Blood Pressure 134/74 H Blood Pressure Mean 94 Pulse Ox 99 Oxygen Delivery Method Room Air MDM MDM MDM Narrative Medical decision making narrative: In the differential diagnosis is colitis versus obstruction versus nonspecific abdominal pain. Comprehensive work-up was pursued. I do feel CT imaging is indicated. We will obtain CBC, CMP, lipase, and urinalysis. I reviewed her medication list, and will add a lithium level. She will be given Bentyl initi ally intramuscularly for pain. I reviewed her laboratory work, she has slightly elevated white count of 13.9 which I think is nonspecific, normal hemoglobin of 14.3, hematocrit normal at 42.7. Platelet count also normal at 313. CMP was reviewed and chloride is slightly elevated at 111. Normal potassium of 4.1. Glucose elevated at 149 with a normal anion gap of 6. LFTs are grossly unremarkable. Urinalysis is negative for infection. I reviewed her CT imaging and see no evidence of a bowel obstruction or bowel dilation. I reviewed the radiology report which shows no acute process, no interval change from previous CT scan except for resolution of ascites and resolution of mild bowel dilation. After Bentyl, upon repeat examination, she is resting comfortably and states that it was very effective in treating her pain. She was written a prescription for Bentyl 20 mg to take 3 times a day as needed for pain. She was also referred to gastroenterology. She may be having irritable bowel syndrome. Regardless, at this point in time, although her lithium level is still pending, I feel she can be discharged safely home with follow-up. Return instructions to the emergency department were reviewed. Disposition is discharged home in stable condition. History & Record Review Discussion w/independent historian: Patient Additional record(s) reviewed:: Prior ED visit and Prior labs Lab Data Attestation: I reviewed the patient's lab results. Labs: Laboratory Results - last 24 hr 06/11/22 06/11/22 06/11/22 14:39 14:39 14:50 WBC 13.9 H RBC 4.76 Hgb 14.3 Hct 42.7 MCV 89.7 MCH 30.0 MCHC 33.5 RDW Std Deviation 45.0 H RDW Coeff of David 13.7 Plt Count 313 MPV 9.8 Immature Gran % (Auto) 0.200 Neut % (Auto) 58.9 Lymph % (Auto) 16.7 L [place] % (Auto) 4.5 Eos % (Auto) 19.3 H Baso % (Auto) 0.4 Absolute Neuts (auto) 8.2 H Absolute Lymphs (auto) 2.32 Nucleated RBC % 0 Differential Comment SCANNED Diff Path Review May foll Sodium 139 Potassium 4.1 Chloride 111 H Carbon Dioxide 22.0 Anion Gap 6 BUN 21 H Creatinine 0.93 Estim Creat Clear Calc 50.97 Est GFR (MDRD) Af Amer 80 Est GFR (MDRD) Non-Af 66 BUN/Creatinine Ratio 22.5 H Glucose 149 H Calcium 10.4 H Total Bilirubin 0.30 AST 27 ALT 41 Alkaline Phosphatase 106 Total Protein 7.3 Albumin 3.8 Globulin 3.5 Albumin/Globulin Ratio 1.1 Lipase 369 Urine Color Yellow Urine Clarity Clear Urine pH 6.5 Ur Specific [place] 1.015 Urine Protein Negative Urine Glucose (UA) Normal Urine Ketones Negative Urine Occult Blood Negative Urine Nitrite Negative Urine Bilirubin Negative Urine Urobilinogen Normal Ur Leukocyte Esterase Negative Urine RBC 0 SEEN Urine WBC 0 SEEN Ur Squamous Epith Cells 0-5 SEEN Urine Bacteria 0 SEEN Urine Mucus 0 SEEN Radiography Diagnostic Testing: Clinical Impression(s) from Imaging Studies Abdomen/Pelvis CT 06/11/22 15:12 IMPRESSION: 1. Resolution of small bowel distention seen on the previous CT. 2. Resolution of the minimal ascites seen on the previous examination. 3. No other major interval change. Electronically Signed: Claus Martinez DO at 15:52 EST Reading Location ID and State: [facility] / MD Tel [phone], Service support , Discharge Plan Triage Chief Complaint: Abd Pain ED Provider: Kip Siddiqi Dx/Rx/DC Orders Clinical Impression: Abdominal pain, Diarrhea Instructions: ED Abdominal Pain Unkn Cause Fem, ED Diarrhea, Unknown Cause Prescriptions: New dicyclomine 20 mg tablet 20 mg PO TID PRN (Reason: abdominal cramping) Qty: 20 0RF No Action lisinopril 40 MG tablet 40 mg PO QHS lithium carbonate 300 MG tablet 300 mg PO TID clonazepam 1 MG tablet 0.5 mg PO TID PRN PRN (Reason: Anxiety) hydroxyzine HCl 50 mg Tablet 50 - 100 mg PO TID PRN PRN (Reason: Anxiety) ondansetron 4 MG tablet 4 mg PO Q8H PRN PRN (Reason: Nausea) Qty: 10 0RF ergocalciferol (vitamin D2) [Vitamin D2] 1,250 mcg (50,000 unit) capsule 50,000 unit PO TU Label Comments: take 1 capsule by mouth every week Prempro 0.3-1.5 mg tablet 1 tab PO QHS Label Comments: take 1 tablet by mouth once daily Primary Care Provider: Gerard García Referrals: Omid Nieves DO [Med Staff - Active Staff] - As Needed Gerard García MD [Primary Care Provider] - 3-5 Days if not improving Disposition Disposition: Home, Self Care
[2022-06-11 14:44] LABS: Absolute Lymphocyte Count 2.32 X10^3/uL (0.83-4.51); Absolute Neutrophil Count 8.2 X10^3/uL (2.0-7.7); Basophil# 0.06 X10^3/uL; Basophil% 0.4 % (0-1); Eosinophils% 19.3 % (0-5); Hematocrit 42.7 % (37-47); Hemoglobin 14.3 g/dL (12.0-15.0); Lymphocyte # 2.32 X10^3/ul (0.83-4.51); Lymphocyte % 16.7 % (19-41); Mean Corp Hgb Conc 33.5 g/dL (32-36); Mean Corpuscular Volume 89.7 fL (81-99); Mean Platelet Vol. 9.8 fl (6.2-12.0); Monocyte# 0.63 X10^3/uL; Monocyte% 4.5 % (0-10); NRBC Flagged by Analyzer 0 % (0-5); Neutrophil # 8.18 X10^3/uL (2.7-7.7); Neutrophil % 58.9 % (47-70); POSITIVE DIFFERENTIAL YES; Platelet Count 313 K/mm3 (150-450); RBC Distribution Width CV 13.7 % (11.6-14.6); Red Blood Count 4.76 M/mm3 (4.2-5.4); White Blood Count 13.9 K/mm3 (4.4-11.0)
[2022-06-11] MEDS: 0.9% Normal Saline 1,000 ML 1000 ML IV (14:45)
[2022-06-11] MEDS: Dicyclomine 20 MG/2 ML Vial IM (14:45)
[2022-06-11 14:57] LABS: Bacteria 0 SEEN /hpf (None Seen); Mucous, Urine 0 SEEN /hpf (<or=2+); Red Blood Cells-Urine 0 SEEN /hpf (0-5); White Blood Cells 0 SEEN /hpf (0-5)
[2022-06-11 15:00] LABS: ALB/GLOB Ratio 1.1 RATIO (0.9-2.4); AST(SGOT) 27 U/L (15-37); Alanine Aminotransfer ALT/SGPT 41 U/L (13-56); Albumin, Serum 3.8 g/dL (3.2-5.0); Alkaline Phosphatase 106 U/L (45-117); Anion Gap 6 (5-15); BUN 21 mg/dL (7-18); BUN/Creat Ratio 22.5 RATIO (10-20); Calcium,Total 10.4 mg/dL (8.5-10.1); Chloride 111 mmol/L (98-107); Creatinine, Serum 0.93 mg/dL (0.55-1.02); EST Glomerular Filtration Rate 66 mL/min (>60); Est Glom Filt Rate - Afr Amer 80 mL/min (>60); Estimated Creatinine Clearance 50.97 ml/min; Globulin 3.5 g/dL (2.2-4.2); Glucose 149 mg/dL (74-106); Lipase 369 U/L (73-393); Potassium 4.1 mmol/L (3.5-5.1); Protein, Total 7.3 g/dL (6.4-8.2); Sodium Level 139 mmol/L (136-145)
[2022-06-11 15:03] LABS: Color, Urine Yellow (Yellow); Glucose, Dipstick Normal (Normal); Ketone-Dipstick Negative (Negative); Leukocyte Esterase-Dipstick Negative /ul (Negative); Nitrite-Dipstick Negative (Negative); Occult Blood-Urine Negative /ul (Negative); Protein-Dipstick Negative (Negative); Specific Gravity, Urine 1.015 (1.002-1.030); Urine Bilirubin Dipstick Negative (Negative); Urine Clarity Clear (Clear); Urine Urobilinogen Normal (Normal); Urine pH 6.5 (5.0 - 8.0)
[2022-06-11 15:09] LABS: Squamous Epithelial Cells - UA 0-5 SEEN /hpf (5-10)
--- NOTE | 2022-06-11 15:12 | CT_ITS ---
INDICATION: Pain and diarrhea. EXAMINATION: CT ABDOMEN AND PELVIS WITH CONTRAST - CT Abdomen And Pelvis W/ Contrast Injection TECHNIQUE: Helically acquired images were obtained of the abdomen and pelvis following IV contrast. A radiation dose optimization technique was used for this scan. IV Contrast dosage and agent: 100 mL of Isovue 370 Oral contrast: None. COMPARISON: December 12, 2015. FINDINGS: LOWER CHEST: Lung bases are clear. No cardiomegaly or pericardial effusion. LIVER: Hepatomegaly with uniform density. No focal mass. GALLBLADDER AND BILIARY TREE: Status post cholecystectomy. No intra- or extrahepatic biliary ductal dilation. PANCREAS: No focal cystic or solid mass. SPLEEN: Normal size without focal cystic or solid mass. ADRENAL GLANDS: No nodules. KIDNEYS AND URETERS: Normal renal size and position. No hydronephrosis. Normal ureters. PERITONEUM: No ascites or free air. No other fluid collection. BOWEL: Normal stomach. Normal small intestine. Normal colon. Normal appendix. LYMPH NODES: No enlarged mesenteric or retroperitoneal lymph nodes. VESSELS: Normal abdominal aorta. Normal IVC. URINARY BLADDER: Unremarkable. REPRODUCTIVE ORGANS: Retroflexed uterus. There is evidence of bilateral tubal ligation. No adnexal mass. ABDOMINAL WALL: No discrete abdominal or pelvic wall hernia. BONES: No lytic or blastic abnormality. CT/Abdomen/Pelvis W IV Cont ONLY IMPRESSION: 1. Resolution of small bowel distention seen on the previous CT. 2. Resolution of the minimal ascites seen on the previous examination. 3. No other major interval change. Electronically Signed: Claus Martinez DO at 15:52 EST Reading Location ID and State: [address] [place] [address] Tel [phone], Service support ,
[2022-06-11 15:20] LABS: Differential Indicated SCAN CRITERIA MET; Eosinophil# 2.68 X10^3/uL
[2022-06-11 15:21] LABS: Differential Comment SCANNED
[2022-06-11 16:20] VITALS: BP 133/86; PULSE 71; RESP 15; O2SAT 99
[2022-06-12 11:40] LABS: Pathologist Review Reviewed
== END 2022-06-11 16:22 | disposition home or self-care (01) ==
PROVIDERS: Emergency Provider Emergency Medicine; PCP Family Medicine; Visit Provider Emergency Medicine
DX: R10.9 Unspecified abdominal pain (principal); R19.7 Diarrhea, unspecified; I10 Essential (primary) hypertension; Z90.49 Acquired absence of other specified parts of digestive tract; Z79.899 Other long term (current) drug therapy; Z86.16 Personal history of COVID-19
CPT/HCPCS: 74177; 80053; 80178; 81001; 83690; 85025; 96360; 96361; 96372; 99282; J7030; Q9967; A4216

== ENCOUNTER → 2022-06-15 | Outpatient (CLI) | payer MEDICARE, MEDICAID, SELFPAY ==
[2022-06-18 13:37] LABS: H. PYLORI STOOL AG Positive (Negative); t-Transglutaminase IgA <2 U/mL (0-3)
[2022-08-22 11:09] LABS: H. PYLORI STOOL AG Negative (Negative)
== END | disposition home or self-care (01) ==
PROVIDERS: PCP Family Medicine
DX: R19.7 Diarrhea, unspecified (principal)
CPT/HCPCS: 36415; 83516; 87177; 87209; 87338

== ENCOUNTER → 2022-09-18 | Outpatient (CLI) | payer MEDICARE, MEDICAID, SELFPAY ==
[2022-09-18 08:36] LABS: ALB/GLOB Ratio 0.9 RATIO (0.9-2.4); AST(SGOT) 20 U/L (15-37); Alanine Aminotransfer ALT/SGPT 36 U/L (13-56); Albumin, Serum 3.5 g/dL (3.2-5.0); Alkaline Phosphatase 94 U/L (45-117); Anion Gap 4 (5-15); BUN 13 mg/dL (7-18); BUN/Creat Ratio 12.9 RATIO (10-20); Calcium,Total 9.8 mg/dL (8.5-10.1); Chloride 108 mmol/L (98-107); Creatinine, Serum 1.01 mg/dL (0.55-1.02); EST Glomerular Filtration Rate 60 mL/min (>60); Est Glom Filt Rate - Afr Amer 73 mL/min (>60); Globulin 3.8 g/dL (2.2-4.2); Glucose 152 mg/dL (74-106); Potassium 4.1 mmol/L (3.5-5.1); Protein, Total 7.3 g/dL (6.4-8.2); Sodium Level 140 mmol/L (136-145)
== END | disposition home or self-care (01) ==
PROVIDERS: PCP Family Medicine; Referring Provider Psychiatry & Neurology Psychiatry; Visit Provider Psychiatry & Neurology Psychiatry
DX: Z79.899 Other long term (current) drug therapy (principal)
CPT/HCPCS: 36415; 80053; 80178; 84443

== ENCOUNTER → 2023-06-09 | Outpatient (CLI) | payer MEDICARE, MEDICAID, SELFPAY ==
[2023-06-09 12:16] LABS: ALB/GLOB Ratio 1.1 RATIO (0.9-2.4); AST(SGOT) 16 U/L (15-37); Alanine Aminotransfer ALT/SGPT 27 U/L (13-56); Albumin, Serum 3.8 g/dL (3.2-5.0); Alkaline Phosphatase 86 U/L (45-117); Anion Gap 2 (5-15); BUN 11 mg/dL (7-18); BUN/Creat Ratio 10.5 RATIO (10-20); Calcium,Total 9.5 mg/dL (8.5-10.1); Chloride 110 mmol/L (98-107); Creatinine, Serum 1.05 mg/dL (0.55-1.02); EST Glomerular Filtration Rate 57 mL/min (>60); Est Glom Filt Rate - Afr Amer 69 mL/min (>60); Globulin 3.5 g/dL (2.2-4.2); Glucose 133 mg/dL (74-106); Potassium 4.1 mmol/L (3.5-5.1); Protein, Total 7.3 g/dL (6.4-8.2); Sodium Level 139 mmol/L (136-145); Thyroid Stim Hormone (TSH) 1.05 uIU/mL (0.358-3.74)
== END | disposition home or self-care (01) ==
LOC: LAB 10:34
PROVIDERS: PCP Family Medicine; Visit Provider Psychiatry & Neurology Psychiatry
DX: Z79.899 Other long term (current) drug therapy (principal)
CPT/HCPCS: 36415; 80053; 80178; 84443

== ENCOUNTER 2023-07-19 10:33 | Emergency (ER) | payer MEDICARE, MEDICAID, SELFPAY ==
[2023-07-19 10:34] VITALS: BP 128/89; PULSE 79; RESP 14; TEMP 36.8; O2SAT 98; BMI 41.8
--- NOTE | 2023-07-19 10:48 | CT_ITS ---
STUDY: CT ABDOMEN AND PELVIS WITHOUT CONTRAST REASON FOR EXAM: Female, 58 years old. Left flank pain RADIATION DOSAGE (If Supplied By Facility): CTDIvol = ( 17.44 ) mGy, DLP = ( 831.99 ) mGycm TECHNIQUE: Transaxial images were obtained from the dome of the diaphragm to the symphysis pubis without oral contrast, and without intravenous contrast. Sagittal and coronal images were reconstructed. Individualized dose optimization techniques were used for this CT. COMPARISON: None. FINDINGS: The visualized lung bases are unremarkable. The visualized portions of the heart are within normal limits. Normal liver. There are surgical clips in the gallbladder fossa consistent with a prior cholecystectomy. Normal spleen. Normal pancreas. Normal bilateral adrenal glands. Normal right kidney. Normal left kidney. Normal visualized stomach. Normal small intestine. Normal colon. The appendix is visualized and appears normal. Normal abdominal aorta. Normal inferior vena cava. Normal retroperitoneum. Normal urinary bladder. Status post bilateral tubal ligation. Normal abdominal wall. Normal osseous structures. CT/Abdomen/Pelvis without Cont IMPRESSION: No renal or ureteral stone. Electronically Signed: Philippe Verdin MD at 11:56 EDT ,
--- NOTE | 2023-07-19 10:48 | ED.VIS.FEGU ---
HPI HPI - Female History of Present Illness Chief Complaint: Complaint Narrative Narrative: 58-year-old female presents with left flank pain and UTI symptoms since Friday. She states that 5 days ago she began having urinary frequency. She denies any fevers or chills, but started having left low back pain. While she denies saddle anesthesia, she denies any midline back pain as well. However, she relates history that at times she will be driving, and she urinates on herself. She still has a sensation that she has to urinate. She denies any leg pain or radicular pain. No exacerbating or alleviating symptoms to her left flank pain. Sometimes it sharp and stabbing and other times it is dull and achy. She was able to drive herself here. PFSH PFSH Medical History Acute myofascial strain of lumbosacral region Acute myofascial strain of lumbosacral region Benign essential hypertension Bipolar disorder Chronic pain COVID-19 Dehydration, mild Delirium due to another medical condition Depression History of anxiety History of chest pain History of depression History of hypertension Hypertension Hypothyroidism Hypoxia Non-smoker Home Medications lisinopril 40 mg tablet 40 mg PO QHS blood pressure 06/14/13 [History Last Taken 09/13/21] lithium carbonate 300 mg tablet,extended release 300 mg PO TID mental health 06/18/14 [History Last Taken 09/13/21] hydroxyzine HCl 50 mg tablet 50 - 100 mg PO TID PRN PRN Anxiety 09/06/20 [History Last Taken 09/14/21] Allergy/AdvReac Type Severity Reaction Status Date / Time cyclobenzaprine HCl Allergy Other Verified 07/19/23 10:33 [From Flexeril] mirtazapine AdvReac Other Verified 07/19/23 10:33 morphine AdvReac Other Verified 07/19/23 10:33 orphenadrine citrate AdvReac Other Verified 07/19/23 10:33 [From Norflex] prochlorperazine edisylate AdvReac Upset Verified 07/19/23 10:33 [From Compazine] Stomach prochlorperazine maleate AdvReac Upset Verified 07/19/23 10:33 [From Compazine] Stomach promethazine HCl AdvReac Upset Verified 07/19/23 10:33 [From Phenergan] Stomach tramadol AdvReac Other Verified 07/19/23 10:33 Surgical History History of appendectomy S/P ACL surgery Social History Smoking Status: Never smoker ROS ROS ED ROS Narrative Constitutional: No fever, no chills. HEENT: No sore throat. No neck pain. No loss of vision. No rhinorrhea. Cardiovascular: No chest pain. No palpitations. No pedal edema. Respiratory: No cough, no shortness of breath. Abdominal: No abdominal pain. No nausea. No vomiting. Genitourinary: Positive urinary frequency, urinating every 15 minutes. Reported incontinence. Positive left flank pain. Musculoskeletal: No myalgias. No arthralgias. Neurologic: No headaches. No dizziness. No lightheadedness. No saddle anesthesia. Skin: No rash. No change in color. Psychiatric: No depression. No anxiety. EXAM Physical Exam Narrative Exam Narrative: Afebrile. Vital signs noted. Nontoxic-appearing. HEENT: Normocephalic. Atraumatic. PERRL, EOMI. Neck soft and supple. No point tenderness or step off. Cardiovascular: Regular rate and rhythm. No murmurs, rubs, or gallops appreciated. Respiratory: No tachypnea. Lungs clear to auscultation bilaterally. Gastrointestinal: Abdomen soft, nontender, with normoactive bowel sounds. No rebound or guarding. Questionable CVA tenderness to percussion, left. Neurological: Awake. Alert. Nonfocal, nonlateralizing. Neurovascular intact left lower extremity. Straight leg raising negative bilaterally. Skin: No rash. Normal color. No pallor. Musculoskeletal: No pedal edema. Full range of motion extremities. Const Vital Signs: 07/19/23 10:34 07/19/23 12:20 Temperature 98.3 F 97.4 F L Temperature Source Temporal Temporal Pulse Rate 79 52 L Respiratory Rate 14 16 Blood Pressure 128/89 H 121/59 H Blood Pressure Mean 102 79 Pulse Ox 98 98 Oxygen Delivery Method Room Air Room Air MDM MDM MDM Narrative Medical decision making narrative: In the differential diagnosis is urinary tract infection versus pyelonephritis versus ureterolithiasis versus musculoskeletal back pain. I have low suspicion for cauda equina syndrome as there are no red flag signs. I do not feel that she requires emergent MRI of her spine. I will obtain basic laboratory work to check her kidney function, and administer 1 L of normal saline to get a urine sample to check for infection. CT of the flank will be obtained as well. Regarding her reported incontinence, I do feel that she may be having more of a neurogenic bladder versus stress incontinence as she still has the sensation that she might have to urinate so she is urinating every 15 minutes purposely. I reviewed her laboratory work, and she has a normal white count of 5.8, hemoglobin normal at 14.9, hematocrit 45.6, platelet count normal at 342. Electrolyte panel shows chloride slightly elevated at 111 which I think is nonspecific, BUN normal at 10 with creatinine normal at 1.02. Glucose is appropriately elevated at 109 with a low anion gap of 2. Urinalysis is negative for infection with negative leukocytes negative nitrites and 0-5 WBCs. I do not feel that antibiotics are indicated. I reviewed the CT report of the CT flank which shows no hydronephrosis, no ureteral stone, no cause for her left flank pain. It may be more musculoskeletal in nature. She was administered Toradol intravenously 15 mg for analgesia. Once again, I see no red flag signs for cauda equina, and I have no reason for her urinary incontinence and urinary frequency, but I do not feel that she requires admission. Through shared decision-making, patient will be discharged to follow-up with urology, Dr. Talbert as needed and her primary care provider as she may have more of a stress incontinence. Patient is agreeable to the plan. Disposition is discharged home in stable condition. History & Record Review Discussion w/independent historian: Patient Additional record(s) reviewed:: Prior ED visit and Prior labs Lab Data Attestation: I reviewed the patient's lab results. Labs: Laboratory Results - last 24 hr 07/19/23 07/19/23 10:00 10:55 WBC 5.8 RBC 5.14 Hgb 14.9 Hct 45.6 MCV 88.7 MCH 29.0 MCHC 32.7 RDW Std Deviation 41.7 RDW Coeff of David 12.7 Plt Count 342 MPV 9.6 Immature Gran % (Auto) 0.200 Neut % (Auto) 58.9 Lymph % (Auto) 32.7 [place] % (Auto) 6.1 Eos % (Auto) 1.4 Baso % (Auto) 0.7 Absolute Neuts (auto) 3.4 Absolute Lymphs (auto) 1.89 Nucleated RBC % 0 Sodium 138 Potassium 4.2 Chloride 111 H Carbon Dioxide 25.0 Anion Gap 2 L BUN 10 Creatinine 1.02 Estim Creat Clear Calc 65.37 Est GFR (MDRD) Af Amer 72 Est GFR (MDRD) Non-Af 59 L BUN/Creatinine Ratio 9.8 L Glucose 109 H Calcium 9.5 Total Bilirubin 0.40 AST 17 ALT 31 Alkaline Phosphatase 84 Total Protein 7.7 Albumin 4.1 Globulin 3.6 Albumin/Globulin Ratio 1.1 Urine Color Yellow Urine Clarity Clear Urine pH 7.0 Ur Specific [place] 1.005 Urine Protein Negative Urine Glucose (UA) Normal Urine Ketones Negative Urine Occult Blood Negative Urine Nitrite Negative Urine Bilirubin Negative Urine Urobilinogen Normal Ur Leukocyte Esterase Negative Urine RBC 0 SEEN Urine WBC 0 SEEN Ur Squamous Epith Cells 0-5 SEEN Urine Bacteria 0 SEEN Urine Mucus 0 SEEN Radiography Diagnostic Testing: Clinical Impression(s) from Imaging Studies Abdomen/Pelvis CT 07/19/23 10:48 IMPRESSION: No renal or ureteral stone. Electronically Signed: Philippe Verdin MD at 11:56 EDT , Discharge Plan Triage Chief Complaint: Complaint ED Provider: Kip Siddiqi Dx/Rx/DC Orders Clinical Impression: Urinary frequency, Urinary incontinence in female Instructions: ED Urinary Incontinence Female Prescriptions: No Action lisinopril 40 MG tablet 40 mg PO QHS lithium carbonate 300 MG tablet 300 mg PO TID hydroxyzine HCl 50 mg Tablet 50 - 100 mg PO TID PRN PRN (Reason: Anxiety) Primary Care Provider: Gerard García Referrals: Araceli Talbert MD [Med Staff - Active Staff] - As soon as possible Gerard García MD [Primary Care Provider] - 3-5 Days Activity Restrictions/Additional Instructions: Return with fever, new or worsening symptoms. Disposition Disposition: Home, Self Care
[2023-07-19] MEDS: 0.9% Normal Saline (1000mL) 1,000 ML 1000 ML IV (11:00)
[2023-07-19 11:15] LABS: Absolute Lymphocyte Count 1.89 X10^3/uL (0.83-4.51); Absolute Neutrophil Count 3.4 X10^3/uL (2.0-7.7); Basophil# 0.04 X10^3/uL; Basophil% 0.7 % (0-1); Eosinophil# 0.08 X10^3/uL; Eosinophils% 1.4 % (0-5); Hematocrit 45.6 % (37-47); Hemoglobin 14.9 g/dL (12.0-15.0); Lymphocyte # 1.89 X10^3/ul (0.83-4.51); Lymphocyte % 32.7 % (19-41); Mean Corp Hgb Conc 32.7 g/dL (32-36); Mean Corpuscular Volume 88.7 fL (81-99); Mean Platelet Vol. 9.6 fl (6.2-12.0); Monocyte# 0.35 X10^3/uL; Monocyte% 6.1 % (0-10); NRBC Flagged by Analyzer 0 % (0-5); Neutrophil # 3.41 X10^3/uL (2.7-7.7); Neutrophil % 58.9 % (47-70); Platelet Count 342 K/mm3 (150-450); RBC Distribution Width CV 12.7 % (11.6-14.6); RBC Distribution Width SD 41.7 fl (35.1-43.9); Red Blood Count 5.14 M/mm3 (4.2-5.4); White Blood Count 5.8 K/mm3 (4.4-11.0)
[2023-07-19 11:20] LABS: ALB/GLOB Ratio 1.1 RATIO (0.9-2.4); AST(SGOT) 17 U/L (15-37); Alanine Aminotransfer ALT/SGPT 31 U/L (13-56); Albumin, Serum 4.1 g/dL (3.2-5.0); Alkaline Phosphatase 84 U/L (45-117); Anion Gap 2 (5-15); BUN 10 mg/dL (7-18); BUN/Creat Ratio 9.8 RATIO (10-20); Calcium,Total 9.5 mg/dL (8.5-10.1); Chloride 111 mmol/L (98-107); Creatinine, Serum 1.02 mg/dL (0.55-1.02); EST Glomerular Filtration Rate 59 mL/min (>60); Est Glom Filt Rate - Afr Amer 72 mL/min (>60); Estimated Creatinine Clearance 65.37 ml/min; Globulin 3.6 g/dL (2.2-4.2); Glucose 109 mg/dL (74-106); Potassium 4.2 mmol/L (3.5-5.1); Protein, Total 7.7 g/dL (6.4-8.2); Sodium Level 138 mmol/L (136-145)
[2023-07-19 11:54] LABS: Bacteria 0 SEEN /hpf (None Seen); Mucous, Urine 0 SEEN /hpf (<or=2+); Red Blood Cells-Urine 0 SEEN /hpf (0-5); White Blood Cells 0 SEEN /hpf (0-5)
[2023-07-19 12:15] LABS: Color, Urine Yellow (Yellow); Glucose, Dipstick Normal (Normal); Ketone-Dipstick Negative (Negative); Leukocyte Esterase-Dipstick Negative /ul (Negative); Nitrite-Dipstick Negative (Negative); Occult Blood-Urine Negative /ul (Negative); Protein-Dipstick Negative (Negative); Specific Gravity, Urine 1.005 (1.002-1.030); Urine Bilirubin Dipstick Negative (Negative); Urine Clarity Clear (Clear); Urine Urobilinogen Normal (Normal)
[2023-07-19 12:20] VITALS: BP 121/59; PULSE 52; RESP 16; TEMP 36.3; O2SAT 98
[2023-07-19] MEDS: Ketorolac 15 MG/ML Vial IV (12:27)
[2023-07-19 12:34] LABS: Squamous Epithelial Cells - UA 0-5 SEEN /hpf (5-10)
[2023-07-19 13:09] VITALS: BP 131/67; PULSE 65; RESP 16; TEMP 37; O2SAT 99
== END 2023-07-19 13:10 | disposition home or self-care (01) ==
PROVIDERS: Emergency Provider Emergency Medicine; PCP Family Medicine; Visit Provider Emergency Medicine
DX: R35.0 Frequency of micturition (principal); R32 Unspecified urinary incontinence; I10 Essential (primary) hypertension; Z79.899 Other long term (current) drug therapy; Z86.16 Personal history of COVID-19
CPT/HCPCS: 74176; 80053; 81001; 85025; 96361; 96374; 99283; J7030

== ENCOUNTER → 2023-11-26 | Outpatient (CLI) | payer MEDICARE, MEDICAID, SELFPAY ==
[2023-11-26 12:07] LABS: ALB/GLOB Ratio 1.2 RATIO (0.9-2.4); AST(SGOT) 15 U/L (15-37); Alanine Aminotransfer ALT/SGPT 32 U/L (13-56); Albumin, Serum 3.8 g/dL (3.2-5.0); Alkaline Phosphatase 91 U/L (45-117); Anion Gap 5 (5-15); BUN 11 mg/dL (7-18); BUN/Creat Ratio 13.6 RATIO (10-20); Calcium,Total 9.7 mg/dL (8.5-10.1); Chloride 111 mmol/L (98-107); Creatinine, Serum 0.81 mg/dL (0.55-1.02); EST Glomerular Filtration Rate 77 mL/min (>60); Est Glom Filt Rate - Afr Amer 94 mL/min (>60); Globulin 3.3 g/dL (2.2-4.2); Glucose 92 mg/dL (74-106); Protein, Total 7.1 g/dL (6.4-8.2); Sodium Level 140 mmol/L (136-145); Thyroid Stim Hormone (TSH) 0.672 uIU/mL (0.358-3.740)
== END | disposition home or self-care (01) ==
PROVIDERS: PCP Family Medicine; Referring Provider Psychiatry & Neurology Psychiatry; Visit Provider Psychiatry & Neurology Psychiatry
DX: Z79.899 Other long term (current) drug therapy (principal)
CPT/HCPCS: 36415; 80053; 80178; 84443

== ENCOUNTER 2024-03-07 15:59 | Emergency (ER) | payer MEDICARE, MEDICAID, SELFPAY ==
[2024-03-07] VITALS (8 sets, daily range): BP systolic 125–154; BP diastolic 60–96; PULSE 45–69; RESP 18–23; TEMP 36–36.1; O2SAT 96–99; BMI 35.2
--- NOTE | 2024-03-07 16:19 | EKG12_ITS ---
Test Reason : CP Blood Pressure : */* mmHG Vent. Rate : 56 BPM Atrial Rate : 56 BPM P-R Int : 146 ms QRS Dur : 86 ms QT Int : 450 ms P-R-T Axes : 35 59 57 degrees QTcB Int : 434 ms Poor data quality, interpretation may be adversely affected Sinus bradycardia Otherwise normal ECG Confirmed by Shaheen Hayward ([id number]), photography editor SAÚL GUERRERO ([id number]) on 03/08/2024 11:46:24 AM Referred By: Jostin Whyte Confirmed By: Shaheen Hayward
--- NOTE | 2024-03-07 16:22 | ED.VIS.CHEST ---
HPI <MYESHA Washington - Last Filed: 03/07/24 20:40> History of Present Illness Chief Complaint: Chest Pain Narrative Narrative: Patient presenting today with substernal/midsternal chest pain that started at 10:30 AM this morning. Her pain is nonexertional. She reports that the pain is a constant sharp pain and pressure. She denies any personal cardiac history. She reports that her dad at the age of 60 from a heart attack, her mom has had a CABG. She denies fevers, chills, recent illness, abdominal pain, nausea, vomiting, and shortness of breath. She has a PMH of bipolar disorder, HTN, anxiety, and H. pylori 1 year ago, currently taking omeprazole. PE Risk Factors: Negative for Recent Travel/Surgery, Recent Immobilization, Prior DVT or PE or Cancer PFSH <MYESHA Washington - Last Filed: 03/07/24 20:40> PFSH Medical History Hypothyroidism Non-smoker History of hypertension Hypoxia Dehydration, mild Delirium due to another medical condition COVID-19 Acute myofascial strain of lumbosacral region Acute myofascial strain of lumbosacral region Depression Bipolar disorder Hypertension Chronic pain History of chest pain History of depression Benign essential hypertension History of anxiety Home Medications ?Medication ?Instructions ?Recorded ?Last Taken ?Type lisinopril 40 mg tablet 40 mg PO QHS blood pressure 06/14/13 09/13/21 History lithium carbonate 300 mg 300 mg PO TID mental health 06/18/14 09/13/21 History tablet,extended release hydroxyzine HCl 50 mg tablet 50 - 100 mg PO TID PRN PRN Anxiety 09/06/20 09/14/21 History Allergy/AdvReac Type Severity Reaction Status Date / Time cyclobenzaprine HCl (From Allergy Other Verified 03/07/24 16:01 Flexeril) mirtazapine AdvReac Other Verified 03/07/24 16:01 morphine AdvReac Other Verified 03/07/24 16:01 orphenadrine citrate (From AdvReac Other Verified 03/07/24 16:01 Norflex) prochlorperazine edisylate AdvReac Upset Verified 03/07/24 16:01 (From Compazine) Stomach prochlorperazine maleate AdvReac Upset Verified 03/07/24 16:01 (From Compazine) Stomach promethazine HCl (From AdvReac Upset Verified 03/07/24 16:01 Phenergan) Stomach tramadol AdvReac Other Verified 03/07/24 16:01 Surgical History History of appendectomy S/P ACL surgery Social History Smoking Status: Never smoker ROS <MYESHA Washington - Last Filed: 03/07/24 20:40> ROS ED Constitutional Constitutional ED: Denies chills or fever(s) Cardiovascular Cardiovascular: Reports chest pain; Denies palpitations Respiratory/Chest Respiratory/Chest: Denies cough or dyspnea Gastrointestinal Gastrointestinal: Denies abdominal pain, nausea or vomiting Musculoskeletal Musculoskeletal: Denies arthralgias or myalgias Integumentary Denies rash Neurologic Neurologic: Denies weakness EXAM <MYEHSA Washington - Last Filed: 03/07/24 20:40> Physical Exam Const Vital Signs: 03/07/24 16:01 03/07/24 16:27 03/07/24 16:30 Temperature 96.8 F L Temperature Source Temporal Pulse Rate 63 59 L 69 Respiratory Rate 18 Respiratory Effort Blood Pressure 147/80 H 154/75 H 130/67 H Blood Pressure Mean 102 88 Pulse Ox 99 Oxygen Delivery Method Room Air 03/07/24 16:30 03/07/24 16:41 03/07/24 17:00 Temperature Temperature Source Pulse Rate 55 L Respiratory Rate 19 H Respiratory Effort Normal Non-Labored Blood Pressure 125/68 H 131/96 H Blood Pressure Mean 87 107 Pulse Ox 96 Oxygen Delivery Method 03/07/24 18:00 03/07/24 19:00 03/07/24 19:27 Temperature 97 F L Temperature Source Pulse Rate 47 L 45 L 45 L Respiratory Rate 23 H 22 H 22 H Respiratory Effort Blood Pressure 126/75 H 134/60 H 134/60 H Blood Pressure Mean 92 84 84 Pulse Ox 96 98 98 Oxygen Delivery Method Room Air Room Air Positive well nourished, well developed and no apparent distress General Appearance ED: well developed HEENT Reports normocephalic and head/scalp atraumatic Mouth ED: Yes moist mucous membranes normal Eyes PERRL and EOMs intact bilaterally Neck full ROM and supple Chest Wall inspection of chest normal and palpation of chest normal Resp normal respiratory effort and clear to auscultation bilaterally Cardio regular rate and regular rhythm GI soft to palpation, non-tender, non-distended and no masses Back/Spine normal ROM and normal to inspection Extremity normal to inspection and full ROM Neuro oriented x3, CN's II-XII intact bilaterally, moves all extremities, no focal motor deficits and no sensory deficits noted Sensorium / Orientation: awake and alert Psych mental status grossly normal and thought process normal Skin no rashes or lesions noted and no wounds <Dr. Jostin Whyte MD - Last Filed: 03/07/24 21:11> Physical Exam Const Vital Signs: 03/07/24 16:01 03/07/24 16:27 03/07/24 16:30 Temperature 96.8 F L Temperature Source Temporal Pulse Rate 63 59 L 69 Respiratory Rate 18 Respiratory Effort Blood Pressure 147/80 H 154/75 H 130/67 H Blood Pressure Mean 102 88 Pulse Ox 99 Oxygen Delivery Method Room Air 03/07/24 16:30 03/07/24 16:41 03/07/24 17:00 Temperature Temperature Source Pulse Rate 55 L Respiratory Rate 19 H Respiratory Effort Normal Non-Labored Blood Pressure 125/68 H 131/96 H Blood Pressure Mean 87 107 Pulse Ox 96 Oxygen Delivery Method 03/07/24 18:00 03/07/24 19:00 03/07/24 19:27 Temperature 97 F L Temperature Source Pulse Rate 47 L 45 L 45 L Respiratory Rate 23 H 22 H 22 H Respiratory Effort Blood Pressure 126/75 H 134/60 H 134/60 H Blood Pressure Mean 92 84 84 Pulse Ox 96 98 98 Oxygen Delivery Method Room Air Room Air MDM <MYESHA [place] - Last Filed: 03/07/24 20:40> [facility] Narrative Medical decision making narrative: Patient presenting today with chest pain that started around 10:30 AM this morning. She is nontoxic-appearing, no acute distress. Cardiac workup will be obtained. She has a low Wells score, low suspicion for PE. CBC is unremarkable, BUN is 28, otherwise BMP unremarkable, nonsignificant delta troponin. Chest x-ray negative for any acute cardiopulmonary abnormality. She was given a nitro for her chest pain but this did not provide any relief. She was then given a GI cocktail and IV Pepcid and on reexamination reports complete resolution of her pain. Low suspicion that this is cardiac in nature, suspect more likely reflux. However, given her family history I did recommend that she follow-up closely with her PCP, recommended that she have further workup outpatient. Return instructions were discussed and patient discharged home in stable condition. I have personally performed a face to face assessment of the patient and have reviewed the MILAN Note. I performed a substantive portion of the visit including all aspects of the following. My sheffield findings include: History is remarkable for squeezing central chest pain that occurred while driving at approximately 10 10:30 AM. Pain has been continuous. There is no radiation. There is no associated symptoms. Father of an PA at 60. She has never smoked. She does have history of hypertension. She denies hypercholesterolemia or diabetes. She denies history of VTE. She denies leg pain, swelling discoloration. The pain is not positional. Is not related to food. There is no exacerbating or alleviating factors. Patient not take anything for the discomfort either. She does have history of H. pylori, 1 year ago. She is on PPI. She reports this pain is different. She had similar pain several years ago and had a cardiac workup that was negative. Exam is vital signs are marked for slight elevation of blood pressure. She appears no distress. HEENT exam is grossly unremarkable. Neck is supple. Trachea is midline. No JVD. Lungs are clear auscultation with good movement of air bilaterally. Heart is regular. Rate is normal. No murmur, gallop or rub. There is no chest wall discomfort on palpation. No epigastric pain. She has a negative Parrish sign. Lower extremity exam is normal with no swelling, asymmetry, discoloration, ligamentous tension, palpable cord status along distribution deep venous system. Medical Decision Making need to evaluate for cardiac versus noncardiac. Noncardiac would include reflux, hiatal hernia, peptic ulcer disease, doubt choledocholithiasis. She has had her gallbladder removed. Doubt GI bleed, acute since she denied black or maroon-colored stool. EKG, chest x-ray and troponin with 2-hour troponin was ordered. Since she is describing this as a squeezing tight sensation on nitroglycerin was ordered. Other additions or changes: EKG reveals no acute ischemic changes. Rate is less than 60. Lab Data Labs: Laboratory Results - last 24 hr 03/07/24 03/07/24 16:13 17:59 WBC 7.6 RBC 5.04 Hgb 14.5 Hct 44.5 MCV 88.3 MCH 28.8 MCHC 32.6 RDW Std Deviation 43.8 RDW Coeff of David 13.4 Plt Count 308 MPV 10.5 Immature Gran % (Auto) 0.400 Neut % (Auto) 54.1 Lymph % (Auto) 38.8 [place] % (Auto) 5.0 Eos % (Auto) 1.2 Baso % (Auto) 0.5 Absolute Neuts (auto) 4.1 Absolute Lymphs (auto) 2.93 Nucleated RBC % 0 Sodium 139 Potassium 3.9 Chloride 108 H Carbon Dioxide 22.0 Anion Gap 9 BUN 20 H Creatinine 1.02 Estim Creat Clear Calc 59.28 Est GFR (MDRD) Af Amer 71 Est GFR (MDRD) Non-Af 59 L BUN/Creatinine Ratio 19.6 Glucose 124 H Calcium 10.1 Troponin I High Sens 4 4 Radiography Diagnostic Testing: Clinical Impression(s) from Imaging Studies Chest X-Ray 03/07/24 16:30 IMPRESSION: No acute cardiopulmonary abnormality. No interval change. Electronically Signed: Danny Jamison MD at 16:42 EST , EKG Initial EKG: Comments: 56 bpm, sinus bradycardia, no ST elevation, no ischemia, interpreted by attending ED physician <Dr. Jostin Whyte MD - Last Filed: 03/07/24 21:11> [facility] Narrative Medical decision making narrative: Patient presenting today with chest pain that started around 10:30 AM this morning. She is nontoxic-appearing, no acute distress. Cardiac workup will be obtained. She has a low Wells score, low suspicion for PE. CBC is unremarkable, BUN is 28, otherwise BMP unremarkable, nonsignificant delta troponin. Chest x-ray negative for any acute cardiopulmonary abnormality. She was given a nitro for her chest pain but this did not provide any relief. She was then given a GI cocktail and IV Pepcid and on reexamination reports complete resolution of her pain. Low suspicion that this is cardiac in nature, suspect more likely reflux. However, given her family history I did recommend that she follow-up closely with her PCP, recommended that she have further workup outpatient. Return instructions were discussed and patient discharged home in stable condition. I have personally performed a face to face assessment of the patient and have reviewed the MILAN Note. I performed a substantive portion of the visit including all aspects of the following. My sheffield findings include: History is remarkable for squeezing central chest pain that occurred while driving at approximately 10 10:30 AM. Pain has been continuous. There is no radiation. There is no associated symptoms. Father of an PA at 60. She has never smoked. She does have history of hypertension. She denies hypercholesterolemia or diabetes. She denies history of VTE. She denies leg pain, swelling discoloration. The pain is not positional. Is not related to food. There is no exacerbating or alleviating factors. Patient not take anything for the discomfort either. She does have history of H. pylori, 1 year ago. She is on PPI. She reports this pain is different. She had similar pain several years ago and had a cardiac workup that was negative. Exam is vital signs are marked for slight elevation of blood pressure. She appears no distress. HEENT exam is grossly unremarkable. Neck is supple. Trachea is midline. No JVD. Lungs are clear auscultation with good movement of air bilaterally. Heart is regular. Rate is normal. No murmur, gallop or rub. There is no chest wall discomfort on palpation. No epigastric pain. She has a negative Parrish sign. Lower extremity exam is normal with no swelling, asymmetry, discoloration, ligamentous tension, palpable cord status along distribution deep venous system. Medical Decision Making need to evaluate for cardiac versus noncardiac. Noncardiac would include reflux, hiatal hernia, peptic ulcer disease, doubt choledocholithiasis. She has had her gallbladder removed. Doubt GI bleed, acute since she denied black or maroon-colored stool. EKG, chest x-ray and troponin with 2-hour troponin was ordered. Since she is describing this as a squeezing tight sensation on nitroglycerin was ordered. Other additions or changes: EKG reveals no acute ischemic changes. Rate is less than 60. Repeat EKG reveals a sinus bradycardia and otherwise normal. This was obtained because patient had a heart rate in the 40s. Review of prior records indicate patient has had a heart rate in the 40s in the past. Patient is not on a beta-narcisa. Patient's first and second troponin were 4 with a delta of 0. This essentially excludes cardiac etiology based on algorithm for high-sensitivity troponins at [facility] Patient was treated with GI cocktail and IV Pepcid. Her symptoms resolved. Presumed that her chest pain was due to GI etiology. Patient was discharged to home Lab Data Attestation: I reviewed the patient's lab results. Lab results narrative: CBC is normal. Labs: Laboratory Results - last 24 hr 03/07/24 03/07/24 16:13 17:59 WBC 7.6 RBC 5.04 Hgb 14.5 Hct 44.5 MCV 88.3 MCH 28.8 MCHC 32.6 RDW Std Deviation 43.8 RDW Coeff of David 13.4 Plt Count 308 MPV 10.5 Immature Gran % (Auto) 0.400 Neut % (Auto) 54.1 Lymph % (Auto) 38.8 [place] % (Auto) 5.0 Eos % (Auto) 1.2 Baso % (Auto) 0.5 Absolute Neuts (auto) 4.1 Absolute Lymphs (auto) 2.93 Nucleated RBC % 0 Sodium 139 Potassium 3.9 Chloride 108 H Carbon Dioxide 22.0 Anion Gap 9 BUN 20 H Creatinine 1.02 Estim Creat Clear Calc 59.28 Est GFR (MDRD) Af Amer 71 Est GFR (MDRD) Non-Af 59 L BUN/Creatinine Ratio 19.6 Glucose 124 H Calcium 10.1 Troponin I High Sens 4 4 Radiography Chest X-Ray - ED: 2 View and Read by ED Physician (Independent reviewed interpreted by me at 1635 is negative. Cardiac silhouette and size normal. Lung parenchyma normal. Hilum is normal. Osseous structures unremarkable.) Diagnostic Testing: Clinical Impression(s) from Imaging Studies Chest X-Ray 03/07/24 16:30 IMPRESSION: No acute cardiopulmonary abnormality. No interval change. Electronically Signed: Danny Jamison MD at 16:42 EST , Discharge Plan Triage Chief Complaint: Chest Pain ED Midlevel Provider: Kamla Polk ED Provider: Jostin Whyte Dx/Rx/DC Orders Clinical Impression: Atypical chest pain, Gastric reflux Instructions: ED Chest Pain, Noncardiac, ED GERD (Adult) Prescriptions: No Action lisinopril 40 MG tablet 40 mg PO QHS lithium carbonate 300 MG tablet 300 mg PO TID hydroxyzine HCl 50 mg Tablet 50 - 100 mg PO TID PRN PRN (Reason: Anxiety) Primary Care Provider: Gerard García Referrals: Gerard García MD [Primary Care Provider] - 5-7 Days Activity Restrictions/Additional Instructions: Follow-up with your PCP, return for any worsening symptoms or other concerns. Print Language: Macedonian Disposition Disposition: Home, Self Care Discharge Date/Time: 03/07/24 19:32
[2024-03-07] MEDS: Aspirin 81 MG TAB.CHEW 324 MG PO (16:26)
[2024-03-07] MEDS: Nitroglycerin SL (ED/IMG/CATH) 0.4 MG TABLET SL (16:27)
[2024-03-07 16:29] LABS: Absolute Lymphocyte Count 2.93 X10^3/uL (0.83-4.51); Absolute Neutrophil Count 4.1 X10^3/uL (2.0-7.7); Basophil# 0.04 X10^3/uL; Basophil% 0.5 % (0-1); Eosinophil# 0.09 X10^3/uL; Eosinophils% 1.2 % (0-5); Hematocrit 44.5 % (37-47); Hemoglobin 14.5 g/dL (12.0-15.0); Lymphocyte # 2.93 X10^3/ul (0.83-4.51); Lymphocyte % 38.8 % (19-41); Mean Corp Hgb Conc 32.6 g/dL (32-36); Mean Corpuscular Hgb 28.8 pg (27.0-32.0); Mean Corpuscular Volume 88.3 fL (81-99); Mean Platelet Vol. 10.5 fl (6.2-12.0); Monocyte# 0.38 X10^3/uL; NRBC Flagged by Analyzer 0 % (0-5); Neutrophil # 4.08 X10^3/uL (2.7-7.7); Neutrophil % 54.1 % (47-70); Platelet Count 308 K/mm3 (150-450); RBC Distribution Width CV 13.4 % (11.6-14.6); RBC Distribution Width SD 43.8 fl (35.1-43.9); Red Blood Count 5.04 M/mm3 (4.2-5.4); White Blood Count 7.6 K/mm3 (4.4-11.0)
--- NOTE | 2024-03-07 16:30 | RAD_ITS ---
EXAM: XR CHEST, 2 VIEWS CLINICAL INDICATION: chest pain TECHNIQUE: Frontal and lateral views of the chest. COMPARISON: XR Chest dated 09/14/2021 FINDINGS: LUNGS AND PLEURAL SPACES: Normal. No consolidation or edema. No pneumothorax. No effusion. HEART: Normal heart size. MEDIASTINUM: No mediastinal or hilar mass. BONES/JOINTS: No acute abnormality. RAD/Chest PA and Lateral IMPRESSION: No acute cardiopulmonary abnormality. No interval change. Electronically Signed: Danny Jamison MD at 16:42 EST ,
[2024-03-07 16:49] LABS: Anion Gap 9 (5-15); BUN 20 mg/dL (7-18); BUN/Creat Ratio 19.6 RATIO (10-20); Calcium,Total 10.1 mg/dL (8.5-10.1); Chloride 108 mmol/L (98-107); Creatinine, Serum 1.02 mg/dL (0.55-1.02); EST Glomerular Filtration Rate 59 mL/min (>60); Est Glom Filt Rate - Afr Amer 71 mL/min (>60); Estimated Creatinine Clearance 59.28 ml/min; Glucose 124 mg/dL (74-106); Potassium 3.9 mmol/L (3.5-5.1); Sodium Level 139 mmol/L (136-145); Troponin-I HS 4 pg/mL (3.0-54.0)
[2024-03-07 18:26] LABS: Troponin-I HS 4 pg/mL (3.0-54.0)
--- NOTE | 2024-03-07 18:33 | EKG12_ITS ---
Test Reason : DYSRHYTHMIA Blood Pressure : */* mmHG Vent. Rate : 48 BPM Atrial Rate : 48 BPM P-R Int : 190 ms QRS Dur : 84 ms QT Int : 466 ms P-R-T Axes : 73 46 54 degrees QTcB Int : 416 ms Sinus bradycardia Otherwise normal ECG Confirmed by Shaheen Hayward ([id number]), editorial director SAÚL GUERRERO ([id number]) on 03/08/2024 11:49:17 AM Referred By: Jostin Whyte Confirmed By: Shaheen Hayward
[2024-03-07] MEDS: Lidocaine 2% Viscous15 ML UDC 15 ML PO (18:54)
[2024-03-07] MEDS: Mag Hydrox/Al Hydrox/Simeth 30 ML UDC PO (18:54)
[2024-03-07] MEDS: Famotidine 200 MG/20 ML MDV 20 MG in 0.9% Normal Saline (Pres. free 8 ML 300 MG IV (18:59)
== END 2024-03-07 19:32 | disposition home or self-care (01) ==
PROVIDERS: Physician Assistant; Emergency Provider Emergency Medicine; PCP Family Medicine; Referring Provider Emergency Medicine; Visit Provider Emergency Medicine
DX: R07.89 Other chest pain (principal); F31.9 Bipolar disorder, unspecified; I10 Essential (primary) hypertension; K21.9 Gastro-esophageal reflux disease without esophagitis; Z90.49 Acquired absence of other specified parts of digestive tract; Z79.899 Other long term (current) drug therapy; F41.9 Anxiety disorder, unspecified
CPT/HCPCS: 71046; 80048; 84484; 85025; 93005; 96365; 99284; A4216

== ENCOUNTER → 2024-05-12 | Outpatient (CLI) | payer MEDICARE, MEDICAID, SELFPAY ==
[2024-05-12 12:24] LABS: ALB/GLOB Ratio 1.1 RATIO (0.9-2.4); AST(SGOT) 17 U/L (15-37); Alanine Aminotransfer ALT/SGPT 23 U/L (13-56); Albumin, Serum 3.7 g/dL (3.2-5.0); Alkaline Phosphatase 103 U/L (45-117); Anion Gap 4 (5-15); BUN 15 mg/dL (7-18); BUN/Creat Ratio 17.2 RATIO (10-20); Calcium,Total 9.5 mg/dL (8.5-10.1); Chloride 111 mmol/L (98-107); Creatinine, Serum 0.87 mg/dL (0.55-1.02); EST Glomerular Filtration Rate 71 mL/min (>60); Est Glom Filt Rate - Afr Amer 85 mL/min (>60); Globulin 3.4 g/dL (2.2-4.2); Glucose 85 mg/dL (74-106); Potassium 3.9 mmol/L (3.5-5.1); Protein, Total 7.1 g/dL (6.4-8.2); Sodium Level 142 mmol/L (136-145); Thyroid Stim Hormone (TSH) 0.555 uIU/mL (0.358-3.740)
== END | disposition home or self-care (01) ==
LOC: LAB 10:44
PROVIDERS: PCP Family Medicine; Referring Provider Psychiatry & Neurology Psychiatry; Visit Provider Psychiatry & Neurology Psychiatry
DX: Z79.899 Other long term (current) drug therapy (principal)
CPT/HCPCS: 36415; 80053; 80178; 84443

== ENCOUNTER → 2024-11-01 | Outpatient (CLI) | payer MEDICARE, MEDICAID, SELFPAY ==
[2024-11-01 11:55] LABS: Lithium 0.83 mmol/L (0.60-1.20)
[2024-11-01 12:09] LABS: AST(SGOT) 35 U/L (<=31); Alanine Aminotransfer ALT/SGPT 21 U/L (<=34); Albumin, Serum 4.0 g/dL (3.5-5.0); Alkaline Phosphatase 73 U/L (35-104); Anion Gap 8 (5-15); BUN 10 mg/dL (4-19); BUN/Creat Ratio 12.6 RATIO (10-20); Calcium,Total 9.9 mg/dL (7.6-11.0); Carbon Dioxide 23.3 mmol/L (21.0-32.0); Chloride 107 mmol/L (98-108); Globulin 2.3 g/dL (2.2-4.2); Glucose 118 mg/dL (70-99); Potassium 5.0 mmol/L (3.3-5.1)
== END | disposition home or self-care (01) ==
LOC: LAB 09:28
PROVIDERS: PCP Family Medicine; Referring Provider Psychiatry & Neurology Psychiatry; Visit Provider Psychiatry & Neurology Psychiatry
DX: Z79.899 Other long term (current) drug therapy (principal)
CPT/HCPCS: 36415; 80053; 80178; 84443

== ENCOUNTER 2024-11-25 15:02 | Emergency (ER) | payer MEDICARE, MEDICAID, SELFPAY ==
[2024-11-25 15:03] VITALS: BP 129/74; PULSE 66; RESP 16; TEMP 36.6; O2SAT 100; BMI 32.7
--- NOTE | 2024-11-25 15:17 | EKG12_ITS ---
Test Reason : CP Blood Pressure : */* mmHG Vent. Rate : 57 BPM Atrial Rate : 57 BPM P-R Int : 148 ms QRS Dur : 86 ms QT Int : 430 ms P-R-T Axes : 46 69 59 degrees QTcB Int : 418 ms Sinus bradycardia Otherwise normal ECG Confirmed by VITA OLVERA, MI ([id number]), field map editor MYCHAL ARMSTRONG ([id number]) on 11/29/2024 6:36:39 AM Referred By: ES/BB Confirmed By: MI GORMAN MD
--- NOTE | 2024-11-25 15:18 | EDS_ITS ---
HPI History of Present Illness Chief Complaint: Chest Pain Informant: patient Narrative Narrative: 59-year-old female presenting with chest pain that started about an hour ago while she was at rest driving. Substernal pressure discomfort radiating in between her shoulder blades nonpleuritic, no other associated acute symptoms, but she admits that it has been making her feel extremely anxious as she has an admitted anxiety issue. She states her mom had heart disease and at 60 but not necessarily less than 55 that she knows of, and her father had a quadruple bypass at age 72 and is still alive, makes her nervous when she gets chest discomfort. She denies any abdominal pain, nausea, vomiting, dyspnea, diaphoresis, near-syncope or syncope. She states her left arm has been bothering her for 3 weeks ever since she had a blood drawl in her antecubital fossa. She states whenever she tries to squeeze something her entire arm hurts all the way from her wrist all the way up to her shoulder. She denies any swelling. She denies any numbness or tingling. [facility] Medical History Hypothyroidism Non-smoker History of hypertension Hypoxia Dehydration, mild Delirium due to another medical condition COVID-19 Acute myofascial strain of lumbosacral region Acute myofascial strain of lumbosacral region Depression Bipolar disorder Hypertension Chronic pain History of chest pain History of depression Benign essential hypertension History of anxiety Home Medications ?Medication ?Instructions ?Recorded ?Last Taken ?Type lisinopril 40 mg tablet 40 mg PO QHS blood pressure 06/14/13 09/13/21 History lithium carbonate 300 mg 300 mg PO TID mental health 06/18/14 09/13/21 History tablet,extended release hydroxyzine HCl 50 mg tablet 50 - 100 mg PO TID PRN LA N Anxiety 09/06/20 09/14/21 History Allergy/AdvReac Type Severity Reaction Status Date / Time cyclobenzaprine HCl (From Allergy Other Verified 03/07/24 16:01 Flexeril) mirtazapine AdvReac Other Verified 03/07/24 16:01 morphine AdvReac Other Verified 03/07/24 16:01 orphenadrine citrate (From AdvReac Other Verified 03/07/24 16:01 Norflex) prochlorperazine edisylate AdvReac Upset Verified 03/07/24 16:01 (From Compazine) Stomach prochlorperazine maleate AdvReac Upset Verified 03/07/24 16:01 (From Compazine) Stomach promethazine HCl (From AdvReac Upset Verified 03/07/24 16:01 Phenergan) Stomach tramadol AdvReac Other Verified 03/07/24 16:01 Surgical History History of appendectomy S/P ACL surgery Social History Smoking Status: Never smoker ROS ROS ED Constitutional Constitutional ED: Denies chills or fever(s) Eyes Eyes: Denies change in vision or diplopia ENT ENT ED: Denies rhinorrhea or sore throat Cardiovascular Cardiovascular: Reports as per HPI and chest pain; Denies palpitations Respiratory/Chest Respiratory/Chest: Denies cough or dyspnea Gastrointestinal Gastrointestinal: Denies abdominal pain, diarrhea, nausea or vomiting Genitourinary Genitourinary ED: Denies dysuria or hematuria Musculoskeletal Musculoskeletal: Reports back pain and extremity pain; Denies neck pain Integumentary Denies abscess or rash Neurologic Neurologic: Denies headache(s), paresthesias or weakness Psychiatric Psychiatric: Reports anxiety; Denies suicidal thoughts EXAM Physical Exam Const Vital Signs: 11/25/24 15:03 11/25/24 15:51 11/25/24 15:51 Temperature 98 F Temperature Source Temporal Pulse Rate 66 Respiratory Rate 16 Respiratory Effort Normal Blood Pressure 129/74 H Blood Pressure Mean 92 Pulse Ox 100 Oxygen Delivery Method Room Air Room Air 11/25/24 16:02 11/25/24 17:00 11/25/24 18:00 Temperature Temperature Source Pulse Rate 55 L 48 L 48 L Respiratory Rate 17 16 Respiratory Effort Blood Pressure 114/58 L 121/71 H 133/88 H Blood Pressure Mean 76 87 Pulse Ox 98 97 Oxygen Delivery Method Room Air Room Air 11/25/24 18:00 Temperature Temperature Source Pulse Rate 50 L Respiratory Rate 20 H Respiratory Effort Blood Pressure 133/88 H Blood Pressure Mean 103 Pulse Ox 97 Oxygen Delivery Method Room Air Positive well nourished and well developed General Appearance ED: well developed and NAD HEENT Reports moist mucous membranes normocephalic and atraumatic Eyes PERRL and EOMs intact bilaterally Neck full ROM and supple Resp normal respiratory effort and clear to auscultation bilaterally Cardio regular rate, regular rhythm and no murmurs Rate: Negative for tachycardic Peripheral Pulses: pulses 2+ throughout GI non-tender and non-distended Auscultation: normoactive bowel sounds Palpation: soft Back/Spine no CVA tenderness General Back: other FROM Extremity normal to inspection Extremity Narrative: Normal-appearing left upper extremity, antecubital fossa is normal-appearing, I cannot even tell where she had the blood draw, and there is no reproducible tenderness there or in her upper arm, forearm compartments of all of which are soft and nondistended. There is no palpable cords. There is no erythema to suggest nidus for infection or DVT. She has 2+/4 radial pulse. She is neurovascular intact distally with no changes in sensation or motor function kneading, radial, ulnar nerves. General Extremety ED: Negative for edema, pulses abnormal or tenderness General Extremity: Negative for edema or pulses abnormal Neuro oriented x3, CN's II-XII intact bilaterally and no sensory deficits noted Sensorium / Orientation: awake and alert Motor Exam: strength 5/5 throughout Psych Mood & Affect: anxious Skin no rashes or lesions noted and no wounds Heart Score History: Slightly/Non-Suspicious ECG: Normal Age: >45 - <65 years Risk Factors: 1 or 2 Risk Factors (Hypertension) Troponin: </= Normal Limit Score: 2 MDM MDM MDM Narrative Medical decision making narrative: EKG was obtained while patient is having active discomfort and is completely normal reassuring. Given this, gave her a GI cocktail while performing the rest of the workup to evaluate for acute coronary syndrome. Do not think she needs workup for PE given the symptoms, she has a pulse of 66 and her pulse ox is 100% on room air and the symptoms do not correlate with PE. She has good blood flow throughout her left upper extremity, no evidence or suspicion for compartment syndrome, and no lapse in neurologic function. She is reassured about that. 2 view chest x-ray on my interpretation shows no acute abnormality. Radiology in agreement. Her labs are unremarkable including 2 sequential negative troponins. In the meantime she was initially given a GI cocktail which did not help, she was then given Levsin which did not help and made her anxiety worse, we then tried a nitroglycerin. Blood pressure stable, she had a couple of episodes where she dipped her heart rate down into the high 30s, the strips show sinus bradycardia without any missed conductions or signs of an AV block. She is on no AV blocking medications. None of this is consistent with lithium toxicity I do not think we need to get a level of her lithium right now. Should not be causing her chest discomfort either. Given all this, I am comfortable with her being discharged home and following up as an outpatient. Lab Data Attestation: I reviewed the patient's lab results. Labs: Laboratory Results - last 24 hr 11/25/24 11/25/24 15:25 17:30 WBC 8.1 RBC 5.04 Hgb 14.5 Hct 43.6 MCV 86.5 MCH 28.8 MCHC 33.3 RDW Std Deviation 40.2 RDW Coeff of David 12.8 Plt Count 330 MPV 9.7 Immature Gran % (Auto) 0.400 Neut % (Auto) 70.7 H Lymph % (Auto) 24.6 [place] % (Auto) 3.2 Eos % (Auto) 0.5 Baso % (Auto) 0.6 Absolute Neuts (auto) 5.7 Absolute Lymphs (auto) 2.00 Nucleated RBC % 0 Sodium 139 Potassium 4.2 Chloride 106 Carbon Dioxide 21.9 Anion Gap 11 BUN 18 Creatinine 0.72 Estim Creat Clear Calc 83.06 Est GFR (MDRD) Non-Af 96 BUN/Creatinine Ratio 25.3 H Glucose 195 H Calcium 9.0 Troponin T High Sens < 6 Troponin T Hi Sens 2 Hr < 6 Radiography Diagnostic Testing: Clinical Impression(s) from Imaging Studies Chest X-Ray 11/25/24 15:35 IMPRESSION: Right upper quadrant abdominal surgical clips are again noted. Lungs appear clear of acute disease. No pleural effusion or pneumothorax is noted. The cardiomediastinal silhouette is stable, without evidence of cardiomegaly. Mild thoracic spine degenerative changes are seen. No evidence of acute cardiopulmonary disease. Reading Location: [place] [id number] Rhythm Strip Rhythm Strip: Sinus Rhythm Rate: 58 Ectopy: None EKG Initial EKG: Attestation: I personally reviewed and interpreted this EKG as follows: Interpretation: Sinus Rhythm and No Acute Injury Pattern Comments: Nml axis & intervals; nml EKG Discharge Plan Triage Chief Complaint: Chest Pain ED Provider: Bryan Melo Dx/Rx/DC Orders Clinical Impression: Chest pain, unspecified, Anxiety Instructions: ED Chest Pain, Noncardiac Prescriptions: No Action lisinopril 40 MG tablet 40 mg PO QHS lithium carbonate 300 MG tablet 300 mg PO TID hydroxyzine HCl 50 mg Tablet 50 - 100 mg PO TID PRN PRN (Reason: Anxiety) Primary Care Provider: Gerard García Referrals: Gerard García MD [Primary Care Provider] - 3-5 Days Print Language: Turkmen Disposition Disposition: Home, Self Care
[2024-11-25] MEDS: Lidocaine 2% Viscous15 ML UDC 15 ML PO (15:28)
--- NOTE | 2024-11-25 15:35 | RAD_ITS ---
PROCEDURE: CHEST PA AND LATERAL 11/25/2024 REASON FOR EXAM: CHEST PAIN TECHNIQUE: CHEST PA AND LATERAL COMPARISON: PA and lateral chest of 03/07/2024. RAD/Chest PA and Lateral IMPRESSION: Right upper quadrant abdominal surgical clips are again noted. Lungs appear clear of acute disease. No pleural effusion or pneumothorax is noted. The cardiomediastinal silhouette is stable, without evidence of cardiomegaly. Mild thoracic spine degenerative changes are seen. No evidence of acute cardiopulmonary disease. Reading Location: [place] [id number]
[2024-11-25 15:37] LABS: Hematocrit 43.6 % (37-47); Hemoglobin 14.5 g/dL (12.0-15.0); Immature Granulocytes Count 0.030 X10^3/uL (0.0-0.0); Mean Corp Hgb Conc 33.3 g/dL (32-36); Mean Corpuscular Volume 86.5 fL (81-99); Mean Platelet Vol. 9.7 fl (6.2-12.0); NRBC Flagged by Analyzer 0 % (0-5); Platelet Count 330 K/mm3 (150-450); RBC Distribution Width CV 12.8 % (11.6-14.6); RBC Distribution Width SD 40.2 fl (35.1-43.9); Red Blood Count 5.04 M/mm3 (4.2-5.4); White Blood Count 8.1 K/mm3 (4.4-11.0)
[2024-11-25 15:58] LABS: Anion Gap 11 (5-15); BUN 18 mg/dL (4-19); BUN/Creat Ratio 25.3 RATIO (10-20); Calcium,Total 9.0 mg/dL (7.6-11.0); Carbon Dioxide 21.9 mmol/L (21.0-32.0); Chloride 106 mmol/L (98-108); Estimated Creatinine Clearance 83.06 ml/min (50-250); Glucose 195 mg/dL (70-99); Potassium 4.2 mmol/L (3.3-5.1); Troponin T High Sensitivity < 6 ng/L (<=14)
[2024-11-25 16:02] VITALS: BP 114/58; PULSE 55; RESP 17; O2SAT 98
[2024-11-25 17:00] VITALS: BP 121/71; PULSE 48; RESP 16; O2SAT 97
--- NOTE | 2024-11-25 17:56 | ED.RN ---
Dr. Melo made aware of pt HR dropping below 40BPM. Pt sx includes dizziness and Generally not feeling well. No new orders at this time.
[2024-11-25 18:00] VITALS: BP 133/88; PULSE 48; PULSE 50; RESP 20; O2SAT 97
[2024-11-25] MEDS: Nitroglycerin SL (ED/IMG/CATH) 0.4 MG TABLET SL (18:00)
[2024-11-25 18:02] LABS: Troponin T High Sens 2 HR < 6 ng/L (<=14)
[2024-11-25 19:03] VITALS: BP 133/88; PULSE 50; RESP 20; TEMP 36.4; O2SAT 97
== END 2024-11-25 19:04 | disposition home or self-care (01) ==
PROVIDERS: Emergency Provider Emergency Medicine; PCP Family Medicine; Visit Provider Emergency Medicine
DX: R07.9 Chest pain, unspecified (principal); F31.9 Bipolar disorder, unspecified; F41.9 Anxiety disorder, unspecified; M79.602 Pain in left arm; I10 Essential (primary) hypertension; G89.29 Other chronic pain; E03.9 Hypothyroidism, unspecified; Z79.899 Other long term (current) drug therapy
CPT/HCPCS: 71046; 80048; 84484; 85025; 93005; 99285; A4216